=== PATIENT | male | born 1950 | race Caucasian/White ===

== ENCOUNTER 2020-01-26 10:51 | Emergency (ER) | payer MEDICARE, SELFPAY ==
[2020-01-26 10:51] VITALS: BP 200/98; PULSE 55; RESP 18; TEMP 36.5; O2SAT 97; BMI 26.6
--- NOTE | 2020-01-26 10:57 | XR_ITS ---
WS: [id number] RIGHT WRIST: 3 VIEW(S) TECHNIQUE: PA, oblique and lateral. HISTORY: fall COMPARISON: None available. Acute comminuted fracture involving the radial metaphysis. Multiple comminuted fragments with displac ement and overlapping. Distal radial fracture is posterior with respect to the proximal fragment by n early the width of the bone. Overlapping fragments by approximately 10 mm. The ulna is intact. No joint space abnormality. Extensive soft tissue edema surrounding the radius. XR/XR wrist RT min 3V* [id number] IMPRESSION: 1. Comminuted displaced fracture involving the radial metaphysis. Fracture is displaced posteriorly the width of the radius with overlapping by 10 mm. 2. Ulna is intact.
--- NOTE | 2020-01-26 10:57 | CT_ITS ---
WS: [id number] CT HEAD NONCONTRAST HISTORY: trauma TECHNIQUE: Contiguous axial imaging performed through the brain in 2.5 mm imaging. Bone and soft tiss ue windows. Sagittal and coronal reformats reviewed. All CT scans at [facility] use at le ast one of these dose optimization techniques: automated exposure control; mA and/or kV adjustment pe r patient size (includes targeted exams where dose is matched to clinical indication); or iterative r econstruction. DLP: 821.64 mGy.cm COMPARISON: 03/29/2018 No acute intracranial hemorrhage, midline shift or mass effect. Mild atrophy and mild chronic ischemic change. Prior lacunar infarct LEFT thalamus and posterior limb of the LEFT internal capsule. Additional small infarct in the anterior limb of the RIGHT internal ca psule. Ventricles: Normal size with no hydrocephalus. Paranasal sinuses: As visualized are clear. Mastoid air cells: Well pneumatized. Calvarium and scalp: Zygomatic arches are intact. Acute minimally displaced fractures involving the n fany bones bilaterally. Nondisplaced fracture through the nasal spine may be present. This will be ev aluated on the follow-up facial bone CT. CT/CT head wo con* [id number] IMPRESSION: 1. No acute intracranial hemorrhage or edema. 2. Cerebral atrophy and chronic ischemic changes and lacunar infarcts as above are stable. 3. Bilateral nasal bone fractures and possible nasal spine fracture. Please se e facial bone CT report to follow.
--- NOTE | 2020-01-26 10:57 | XR_ITS ---
WS: [id number] LEFT HAND: 3 VIEW(S) TECHNIQUE: PA, oblique and lateral. HISTORY: fall COMPARISON: None available. No acute fracture or dislocation. No soft tissue or bone abnormality. XR/XR hand LT min 3V* [id number] IMPRESSION: Normal LEFT hand.
--- NOTE | 2020-01-26 10:57 | CT_ITS ---
WS: [id number] CT CERVICAL SPINE HISTORY: fall 10 ft TECHNIQUE: Contiguous 2.5 mm axial imaging performed through the entire cervical spine. Sagittal and coronal reformats also performed. All CT scans at [facility] use at least one of these do se optimization techniques: automated exposure control; mA and/or kV adjustment per patient size (inc ludes targeted exams where dose is matched to clinical indication); or iterative reconstruction. DLP: 782.27 mGy.cm COMPARISON: None available. Straightening and slight reversal normal cervical lordosis. Craniocervical junction is normal. Modera te degenerative disc space narrowing at C5-6 and C6-7. Facet joints are normally aligned. Lateral mas ses of C1 and C2 are aligned. C2-C3: Central disc protrusion. C3-C4: Osteophytic ridging and shallow central disc protrusion and annular bulge. Mild central and bi lateral foraminal stenosis. C4-C5: Diffuse annular disc bulging with facet disease. Moderate bilateral foraminal stenosis and mil d central stenosis. C5-C6: Moderate annular disc bulging with osteophyte encroachment upon the ventral thecal sac. Severe bilateral foraminal stenosis. C6-C7: Diffuse osteophytic ridging with osteophyte encroachment upon the thecal sac. Severe RIGHT and mild LEFT foraminal narrowing. C7-T1: Diffuse osteophytic ridging with moderate to severe bilateral foraminal stenosis. Lung apices are clear. There is a small amount of air along the posterior surface of the LEFT clavicl e of uncertain etiology. May be related to IV placement. Moderate atherosclerosis extracranial caroti d arteries. CT/CT cervical spin wo con* [id number] IMPRESSION: 1. No cervical spine fracture. 2. Multilevel central and bilateral foraminal stenosis as above.
--- NOTE | 2020-01-26 10:58 | ED_ITS ---
HPI - Fall General: Chief Complaint: Fall Stated Complaint: FALL Time Seen by Provider: 01/26/20 10:57 Source: patient Mode of arrival: EMS Limitations: no limitations History of Present Illness: HPI Narrative: Patient is a very nice 69-year-old gentleman who presents to ED today following a fall from a 10 foot ladder. Patient and EMS report states that he was on the ladder when the ladder slipped out from underneath him causing him to fall. He complains mainly of right wrist pain. He states he might have struck in his head but denies LOC or neck pain. He is also complaining of some left thumb pain. Patient is alert and oriented x3 upon arrival. MD complaint: fall Onset (ago): minute(s) Fall from: from height (distance) (ladder-10 feet) Fall witnessed: yes, by bystander Place fall occurred: work Loss of consciousness: None Prolonged down time: no Symptoms prior to fall: none Context: tripped/slipped Associated symptoms-after fall: Denies abdominal pain, chest pain, headache(s), lightheadedness or neck pain Review of Systems Eyes: Denies: change in vision, blurry vision, photophobia, floaters or seeing flashes Card: Denies: chest pain, palpitations, irregular heart rhythm, edema, lightheadedness, syncope or pre-syncope Resp: Denies: shortness of breath, coughing up blood or chest congestion GI: Denies: abdominal pain Musc: Reports: joint pain (R wrist) and joint swelling (R wrist); Denies: neck pain or back pain Neuro: Denies: headache, numbness in extremities, weakness in extremities or changes in sensation [facility] ED PFSH: Social History Smoking and tobacco status: current every day smoker Physical Exam Const: COMMON NORMALS: no apparent distress, average body habitus, oriented x3, no limitations, healthy appearing, alert and well nourished ORIENTATION/CONSCIOUSNESS: Yes oriented to person, Yes oriented to place and Yes oriented to time HENMT: COMMON NORMALS: normocephalic, external ears normal, EAC's normal, TM's normal bilaterally, moist oral mucous membranes and oropharynx normal HEAD & SCALP: normal to inspection and normocephalic NOSE: other (small laceration to bridge of nose; no epistaxis; no septal hematoma) EXTERNAL EAR: Yes external ears normal EXTERNAL AUDITORY CANAL: EAC's normal TYMPANIC MEMBRANE: TM's normal bilaterally MOUTH: other (no intraoral injury ) THROAT: posterior oropharynx normal, tonsils normal and uvula midline Eye: COMMON NORMALS: PERRL, EOMs intact bilaterally and conjunctivae normal CONJUNCTIVA: Yes conjunctivae normal PUPIL: Yes PERRL Neck/C-Spine: OTHER: c-collar placed immediately during exam Chest: COMMONS NORMALS: inspection of chest normal and palpation of chest normal Resp: COMMON NORMALS: normal respiratory effort and clear to auscultation bilaterally AUSCULTATION: clear to auscultation bilaterally Cardio: COMMON NORMALS: regular rhythm RATE: bradycardic (mild-states this is normal for him) RHYTHM: regular rhythm GI: COMMON NORMALS: normal to inspection, nondistended, normoactive bowel sounds, soft to palpation, non-tender, no hepatosplenomegaly and no masses PALPATION: Yes soft and Yes no hepatosplenomegaly Back/Pelvis: COMMON NORMALS: thoracic and lumbar spine normal to inspection, no thoracic nor lumbar tenderness, thoraco-lumbar ROM normal and straight leg raise negative bilaterally Extremity: GENERAL: Yes normal exam except as noted OTHER: TTP and obvious deformity to R wrist; radial pulse intact; cap refill brisk Neuro: ANNY COMA SCALE: document GCS findings [place] coma scale eye opening: Spontaneous Anny coma scale verbal response: Orientated Anny coma scale motor response: Obey commands [place] coma scale total score: 15 COMMON NORMALS: oriented x3, CN's II-XII intact bilaterally, moves all extremities, no focal motor deficits and no sensory deficits noted SENSORIUM/ORIENTATION: Yes alert, Yes oriented to person, Yes oriented to place and Yes oriented to time Skin: NARRATIVE SKIN EXAM: small abrasion to forehead; small 0.5cm laceration to bridge of nose Procedures Laceration Laceration 1: Site: face (nose) Size (cm): 0.5 Description: linear Depth: simple, single layer Pre-repair: wound explored and irrigated extensively Skin layer closed with: nylon Size (cm): 5-0 Number of sutures: 2 Technique: simple, interrupted Course Consultations: Consultation #1: Dr. Giraldo-reviewed patient's wrist x-ray films and would like patient splinted and immediately sent to the orthopedic office so she can assess and hopefully schedule surgery for tomorrow (has to meet with committee tonight so they can approve urgent surgery). 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 Vital Signs: Vital signs: Vital Signs Temperature 97.7 F 01/26/20 10:51 Pulse Rate 44 L 01/26/20 12:37 Respiratory Rate 19 H 01/26/20 12:37 Blood Pressure 212/90 01/26/20 12:37 Pulse Oximetry 98 01/26/20 12:37 MDM - Fall MDM Narrative: Medical decision making narrative: Patient splinted and he will immediately see Dr. Giraldo. He will follow-up later with Dr. Hill for his nasal bone fractures. Imaging Data^: CT Head: Radiologist's impression: [address] [address] [address] Scan Report Signed Patient: Kelvin Pressley Unit #: [id number] : 1950 Age/Sex: 69 / M ADM Date: 01/26/20 Loc: ER Room/Bed: Attending Dr: Ordering Provider/Ordering MD: Madhavi Mcfarlane Date of Service: 01/26/20 Procedure(s): CT head wo con* [id number] Accession Number(s): [id number] Report Number: [id number] WS: [id number] CT HEAD NONCONTRAST HISTORY: trauma TECHNIQUE: Contiguous axial imaging performed through the brain in 2.5 mm imaging. Bone and soft tissue windows. Sagittal and coronal reformats reviewed. All CT scans at [facility] use at least one of these dose optimization techniques: automated exposure control; mA and/or kV adjustment per patient size (includes targeted exams where dose is matched to clinical indication); or iterative reconstruction. DLP: 821.64 mGy.cm COMPARISON: 03/29/2018 No acute intracranial hemorrhage, midline shift or mass effect. Mild atrophy and mild chronic ischemic change. Prior lacunar infarct LEFT thalamus and posterior limb of the LEFT internal capsule. Additional small infarct in the anterior limb of the RIGHT int ernal capsule. Ventricles: Normal size with no hydrocephalus. Paranasal sinuses: As visualized are clear. Mastoid air cells: Well pneumatized. Calvarium and scalp: Zygomatic arches are intact. Acute minimally displaced fractures involving the nasal bones bilaterally. Nondisplaced fracture through the nasal spine may be present. This will be evaluated on the follow-up facial bone CT. CT/CT head wo con* [id number] IMPRESSION: 1. No acute intracranial hemorrhage or edema. 2. Cerebral atrophy and chronic ischemic changes and lacunar infarcts as above are stable. 3. Bilateral nasal bone fractures and possible nasal spine fracture. Please see facial bone CT report to follow. Dictated By: Bernie Lopez DO Signed By: Bernie Lopez DO Signed Date/Time: 01/26/20 1138 DD/ 1133 CT cervical : Radiologist's impression: [facility] [address] [place] [address] CT Scan Report Signed Patient: Kelvin Pressley Unit #: [id number] : 1950 Age/Sex: 69 / M ADM Date: 01/26/20 Loc: ER Room/Bed: Attending Dr: Ordering Provider/Ordering MD: Madhavi Mcfarlane Date of Service: 01/26/20 Procedure(s): CT cervical spin wo con* [id number] Accession Number(s): [id number] Report Number: [id number] WS: [id number] CT CERVICAL SPINE HISTORY: fall 10 ft TECHNIQUE: Contiguous 2.5 mm axial imaging performed through the entire cervical spine. Sagittal and coronal reformats also performed. All CT scans at [facility] use at least one of these dose optimization techniques: automated exposure control; mA and/or kV adjustment per patient size (includes targeted exams where dose is matched to clinical indication); or iterative reconstruction. DLP: 782.27 mGy.cm COMPARISON: None available. Straightening and slight reversal normal cervical lordosis. Craniocervical junction is normal. Moderate degenerative disc space narrowing at C5-6 and C6-7. Facet joints are normally aligned. Lateral masses of C1 and C2 are aligned. C2-C3: Central disc protrusion. C3-C4: Osteophytic ridging and shallow central disc protrusion and annular bulge. Mild central and bilateral foraminal stenosis. C4-C5: Diffuse annular disc bulging with facet disease. Moderate bilateral foraminal stenosis and mild central stenosis. C5-C6: Moderate annular disc bulging with osteophyte encroachment upon the ventral thecal sac. Severe bilateral foraminal stenosis. C6-C7: Diffuse osteophytic ridging with osteophyte encroachment upon the thecal sac. Severe RIGHT and mild LEFT foraminal narrowing. C7-T1: Diffuse osteophytic ridging with moderate to severe bilateral foraminal stenosis. Lung apices are clear. There is a small amount of air along the posterior surface of the LEFT clavicle of uncertain etiology. May be related to IV placement. Moderate atherosclerosis extrac ranial carotid arteries. CT/CT cervical spin wo con* [id number] IMPRESSION: 1. No cervical spine fracture. 2. Multilevel central and bilateral foraminal stenosis as above. Dictated By: Bernie Lopez DO Signed By: Bernie Lopez DO Signed Date/Time: 01/26/20 1152 DD/ 1138 CT facial: Radiologist's impression: [place] [address] CT Scan Report Signed Patient: Kelvin Pressley Unit #: [id number] : 1950 Age/Sex: 69 / M ADM Date: 01/26/20 Loc: ER Room/Bed: Attending Dr: Ordering Provider/Ordering MD: Madhavi Mcfarlane Date of Service: 01/26/20 Procedure(s): CT facial bones wo con* 25015 Accession Number(s): [id number] Report Number: [id number] WS: [id number] CT FACIAL BONES HISTORY: trauma TECHNIQUE: Images obtained from the supraorbital location through the mandible. Soft tissue and bone windows are reviewed. Coronal and sagittal reformats have also been submitted. DLP: 752.[address] scans at [facility] use at least one of these dose optimization techniques: automated exposure control; mA and/or kV adjustment per patient size (includes targeted exams where dose is matched to clinical indication); or iterative reconstruction. COMPARISON: None available. Acute LEFT lateral displacement of comminuted nasal bone fractures. Nasal spine is intact. Zygomatic arches are normal. No air-fluid levels within the sinus cavities. Floors and roofs of the orbits are normal. Mild deviation of the nasal septum with bony spurring to the RIGHT. CT/CT facial bones wo con* [id number] IMPRESSION: Bilateral nasal bone fractures with mild displacement to the LEFT. No additional fractures. Dictated By: Bernie Lopez DO Signed By: Bernie Lopez DO Signed Date/Time: 01/26/20 1200 DD/ 1155 L hand XR: Radiologist's impression: [address] [address] XRay Report Signed Patient: Kelvin Pressley Unit #: [id number] : 1950 Age/Sex: 69 / M ADM Date: 01/26/20 Loc: ER Room/Bed: Attending Dr: Ordering Provider/Ordering MD: Madhavi Mcfarlane Date of Service: 01/26/20 Procedure(s): XR hand LT min 3V* 99489 Accession Number(s): [id number] Report Number: [id number] WS: [id number] LEFT HAND: 3 VIEW(S) TECHNIQUE: PA, oblique and lateral. HISTORY: fall COMPARISON: None available. No acute fracture or dislocation. No soft tissue or bone abnormality. XR/XR hand LT min 3V* [id number] IMPRESSION: Normal LEFT hand. Dictated By: Bernie Lopez DO Signed By: Bernie Lopez DO Signed Date/Time: 01/26/20 1202 DD/ 1201 Discharge Plan Discharge Patient Disposition: Home, Self-Care Clinical Impression: Displaced fracture of distal end of radius Fall from ladder Qualifiers: Encounter type: initial encounter Qualified Code(s): W11.XXXA - Fall on and from ladder, initial encounter Fracture closed, nasal bone Qualifiers: Encounter type: initial encounter Qualified Code(s): S02.2XXA - Fracture of nasal bones, initial encounter for closed fracture Condition: Stable Prescriptions: New Augmentin 875-125 mg tablet 1 tab PO Q12H Qty: 14 RF: 0 hydrocodone-acetaminophen 7.5-325 mg tablet 1 tab PO Q4H PRN (Reason: pain) Qty: 20 RF: 0 No Action fluoxetine 40 mg Capsule 40 mg PO QAM RF: 0 sildenafil 100 mg Tablet 100 mg PO DAILY PRN (Reason: Sexual Activity) RF: 0 lisinopril 40 mg Tablet 40 mg PO DAILY RF: 0 aripiprazole 10 mg Tablet 10 mg PO DAILY RF: 0 Discharge Orders: Discharge Order (Routine); Ordered 01/26/20 Ordered By: Madhavi Mcfarlane Referrals: Gerard Hill MD [Physician] - Gloria Reid MD [Primary Care Provider] - Activity Restrictions/Additional Instructions: Go straight to [facility] orthopedics where you will meet with Dr. Giraldo. She will go over surgical options for your wrist fracture. I have already spoken to your who will meet you there. Please follow the referral information and contact Dr. Hill so that he may see you for your nasal fracture. Discharge Date/Time: 01/26/20 12:37 Coding Level of Care Code ED Derrick Worker Well Service for Chg Fwd Exam Comprehensive
[2020-01-26 11:03] VITALS: O2SAT 97
--- NOTE | 2020-01-26 11:24 | PC.NURSE ---
pt back from CT by inna
[2020-01-26 11:36] VITALS: RESP 16
[2020-01-26] MEDS: morphine 4 mg/mL SDV 1 mL IVP (11:36)
[2020-01-26] MEDS: tetanus-diphtheria tox (adult) 0.5 mL SDV IM (11:37)
--- NOTE | 2020-01-26 11:38 | PC.NURSE ---
portable xray at bedside
[2020-01-26 12:16] VITALS: PULSE 47; RESP 18; O2SAT 100
[2020-01-26 12:37] VITALS: BP 212/90; PULSE 44; RESP 19; O2SAT 98
--- NOTE | 2020-01-27 10:44 | DCPLANNER ---
risk management manager had message to schedule a follow up appointment for patient with Dr. Hill. risk management manager called the office of Dr. Hill, spoke with Iveth, gave clinic patients information. risk management manager was told that patients information would be printed and reviewed. Clinic will call case resource manager and patient with appointment information.
--- NOTE | 2020-02-28 14:27 | DCPLANNER ---
Patients appointment with Dr. Hill has been cancelled.
== END 2020-01-26 12:37 | disposition home or self-care (01) ==
LOC: ER 12:42
PROVIDERS: Emergency Provider Physician Assistant; PCP Family Medicine
DX: S01.21XA Laceration without foreign body of nose, initial encounter (principal); S02.2XXA Fracture of nasal bones, initial encounter for closed fracture; S52.501A Unspecified fracture of the lower end of right radius, initial encounter for closed fracture; S00.81XA Abrasion of other part of head, initial encounter; F17.200 Nicotine dependence, unspecified, uncomplicated; W11.XXXA Fall on and from ladder, initial encounter
CPT/HCPCS: 12011; 12345; 29125; 70450; 70486; 72125; 73110; 73130; 90471; 90714; 96374; 96375; 99283; 99284; J2270

== ENCOUNTER 2020-01-27 07:28 | Day surgery (SDC) | payer MEDICARE, SELFPAY ==
[2020-01-27] VITALS (13 sets, daily range): BP systolic 132–194; BP diastolic 63–107; PULSE 49–68; RESP 15–24; TEMP 36.2–36.9; O2SAT 93–99; BMI 25.1
--- NOTE | 2020-01-27 | XR_ITS ---
WS: [id number] C-ARM RADIOGRAPHS RIGHT WRIST; 4 IMAGES HISTORY: ORIF RIGHT WRIST COMPARISON: 01/26/2020 Intraoperative placement of a plate and screws stabilizing the distal radial fracture in good positio n and alignment. Fracture impaction and displacement has been reduced. XR/XR wrist RT min 3V* [id number] IMPRESSION: Intraoperative imaging during ORIF distal radial comminuted fracture now in goo d alignment.
--- NOTE | 2020-01-27 | SCC_ITS ---
Procedure Done: Open reduction internal fixation right comminuted displaced distal radius fracture 164.6 seconds of fluoroscopic guidance, for a cumulative dose of 5.15 mGy, was provided to Dr. Giraldo by the radiology department. C-arm images of the RIGHT wrist were saved for the patient's permanent record. [facility]ITAL[facility]ash[facility]
[2020-01-27] MEDS: CELEcoxib 200 mg Capsule 400 MG PO (08:01)
[2020-01-27 08:25] LABS: Basophils % 0.2 %; Eosinophils % 0.1 %; Hematocrit 41.3 % (42.0-52.0); Lymphocytes % 7.4 %; Mean Corpuscular HGB Conc 33.9 g/dL (30.0-36.0); Mean Corpuscular Hemoglobin 32.7 pg (28.0-34.0); Mean Corpuscular Volume 96.5 fL (80-94); Mean Platelet Volume 11.7 fL (7.4-10.4); Monocytes # 0.8 10^3/uL (0.2-0.9); Monocytes % 5.9 %; Neutrophils # 11.4 10^3/uL (1.8-7.7); Neutrophils % 86.1 %; Nucleated Red Blood Cells % 0 %; Platelet Count 208 10^3/cmm (130-400); Red Blood Count 4.28 10^6/uL (4.1-5.3); Red Cell Distribution Width 14.5 % (12.1-15.1); White Blood Count 13.2 10^3/uL (4.0-10.0)
[2020-01-27] MEDS: sodium chloride 0.9% 1,000 ML 30 ML IV (08:30)
--- NOTE | 2020-01-27 08:37 | P.ANESASSM_ITS ---
Pre-Anesthetic Assessment Pre-Anesthetic Assessment: Height/Weight: Height 1.75 m Weight 77.111 kg Preop Diagnosis: Right wrist fracture Proposed Procedure: Operation Date: 01/27/20 07:20 Proposed Procedures p ORIF Wrist 98691/S52.509A(Right) - Aletha Giraldo MD Familial anesthetic complications: PONV Was Beta Patricia taken within 24 hours: N/A Last intake: Intake NPO > 8 hrs Last Liquid Date 01/26/20 Last Liquid Time 16:00 Last Solid Date 01/26/20 Last Solid Time 16:00 Social: Social History: Tobacco Packs per day: 0.5 ppd Exam: Pre-Anes Outpt Exam: alert, oriented x 3, clear to auscultation bilaterally and regular rate & rhythm Airway: Submandibular: Other (suarez) Cervical ROM: WNL MP: 4 Additional comments: edentulouis Pulmonary: Pulmonary: None reported CV/HEM: CV/HEM: HTN : : None reported Hepatic: Hepatic: None reported GI: GI: None reported Metabolic: Metabolic: None reported Musc/skel: Comments: Nasal fractrures Neuropsych: Neuropsych: CVA (Difficulty with language (r arm and leg weak as well) - occured 8 yrs ago) Anesthetic Plan: ASA status: 3 Anesthesia: General and Regional (specify below) Risk of > 500 ml blood loss (7ml/kg in children): No PFSH Anesthesia PFSH: Medical History (Updated 01/26/20 @ 16:31 by Aletha Giraldo MD) Hypertension Social History Smoking and tobacco status: current every day smoker Alcohol intake: never Data Anesthesia CBC & Chem 7: 01/27/20 07:53 Other Labs: Laboratory Results - last 48 hr 01/27/20 07:53 WBC 13.2 H RBC 4.28 Hgb 14.0 Hct 41.3 L MCV 96.5 H MCH 32.7 MCHC 33.9 RDW 14.5 Plt Count 208 MPV 11.7 H Neut % (Auto) 86.1 Lymph % (Auto) 7.4 [place] % (Auto) 5.9 Eos % (Auto) 0.1 Baso % (Auto) 0.2 Neut # (Auto) 11.4 H Lymph # (Auto) 1.0 [place] # (Auto) 0.8 Eos # (Auto) 0.0 Baso # (Auto) 0.0 Nucleated RBC % (auto) 0 Nucleated RBCs # 0.0 Cardiac Studies: No Data to Display
[2020-01-27 08:38] LABS: Alanine Aminotransferase 14 U/L (0-41); Albumin Level 4.3 g/dL (3.5-5.2); Alkaline Phosphatase 77 IU/L (40-130); Anion Gap 17.6 (5-19); Aspartate Amino Transferase 16 U/L (0-40); Blood Urea Nitrogen 10 mg/dL (8-23); Calcium 9.9 mg/dL (8.5-10.5); Carbon Dioxide 25 mmol/L (22-29); Chloride 100 mmol/L (98-107); Globulin 3.2 g/dL (1.3-4.6); Glomerular Filtration Rate 74.1 mL/min (90-130); Glucose 136 mg/dL (65-115); Osmolality Calculated 286 mOsm/kg (285-295); Potassium 3.6 mmol/L (3.5-5.1); Sodium 139 mmol/L (136-145); Total Bilirubin 0.6 mg/dL (0.15-1.2); Total Protein 7.5 g/dL (6.6-8.7)
--- NOTE | 2020-01-27 08:42 | ANES.PROC ---
Anesthesia Procedures Procedure/Date: 01/27/20 Nerve Block ^: Nerve Block 1: Main Anesthesia: general anesthesia Time Out Performed: Yes Consent: requested by attending/covering physician, from patient, from other (), risks and benefits reviewed and patient agrees to proceed Nerve block location: supraclavicular (R) Anesthesia monitors applied: pulse oximetry, EKG, BP cuff and oxygen Nerve block position: semi sitting Anesthetic Used: ropivicaine 0.5% and with decadron (4 mg) Amount of anesthesia used (mL): 30 Ultrasound used to: recognize landmarks, visualize and ID brachial plexus and in supraclavicular region Nerve Stimulator Used?: No Interscalene/Femoral BLK: 4 stimuplex 21 g needle used for position and inplane approach, visualize local anesthetic spread and no vascular puncture identified Injection: neg aspiration of heme Patient Tolerated Procedure: well and no complications Complications: none
[2020-01-27] MEDS: hyDRALAzine 20 mg/mL INJ 1 mL 5 MG IVP ×2 (09:09→09:55)
[2020-01-27] MEDS: vancomycin 1,000 MG in sodium chloride 0.9% 250 ML 166 MG IV (09:15)
--- NOTE | 2020-01-27 10:03 | P.HPUD_ITS ---
Surgery/Procedure H&P Update DATE OF PROCEDURE: January 27, 2020 DATE H&P PERFORMED: 01/26/20 H&P UPDATE INFORMATION: I have examined patient prior to procedure, No changes to prior documentation and H&P is in [facility] EMR on date indicated PREOP DIAGNOSIS: Right wrist fracture PLANNED PROCEDURE: Operation Date: 01/27/20 07:20 Proposed Procedures p ORIF Wrist [id number]/S52.509A(Right) - Aletha Giraldo MD
[2020-01-27] MEDS: scopolamine 1.5 Patch 1 PATCH TRANSDERMA (10:21)
[2020-01-27] MEDS: ceFAZolin 1,000 mg SDV 1000 MG IRRIGATION (11:21)
--- NOTE | 2020-01-27 12:42 | SUR.PHASEI ---
1239 PATIENT TO PACU AT THIS TIME. RR EVEN AND UNLABORED. ORAL AIRWAY IN PLACE. PLACED ON SIMPLE MASK AT 8L, SPO2 99%. PATIENT NOTED TO BE RESTING WITH EYES CLOSED, UNRESPONSIVE TO VERBAL STIMULI, PROTECTING AIRWAY. DRESSING INTACT TO RIGHT WRIST, CAP REFILL INTACT.
--- NOTE | 2020-01-27 12:58 | SUR.PHASEI ---
1257 ORAL AIRWAY REMOVED. SPO2 99% ON SIMPLE MASK AT 8L.
--- NOTE | 2020-01-27 13:21 | PM.OP ---
Operative Report Date of procedure: January 27, 2020 Pre-op Diagnosis: Right comminuted 100% displaced distal radius fracture Post-op diagnosis: same Procedure Done: Open reduction internal fixation right comminuted displaced distal radius fracture utilizing the [place] distal radius plate, volar, standard long with a combination of locking and nonlocking screws Pathology: none sent Surgeon: Aletha Giraldo Predatory Animal Trapper: [facility] OR technicians Anesthesia: General (Intubated) Estimated blood loss (mL): 10 Tourniquet time (min): 99 IV fluids (mL): 600 Urine output: 0 mL, no Adorno Complications: None Findings: Significant comminution and 100% displacement of the distal radius fracture which was very unstable following reduction. Condition: stable Disposition: same day (To PACU then to home) Brief History: This 69-year-old gentleman presented to my office after falling approximately 10 feet from a ladder. He had a 100% displaced comminuted distal radius fracture. Fracture was felt to be very unstable, and therefore, he was scheduled for urgent intervention. At the time of evaluation, he was found to be neurologically intact aside from his deficits secondary to a stroke which involve primarily the right side. He does note normal sensation to evaluation however. Procedure: Patient was brought to the operating theater, and after undergoing adequate general anesthesia per endotracheal tube, with subsequent placement in the recovery room of a supraclavicular block, the patient's right upper extremity was prepped and draped in usual fashion utilizing DuraPrep. The patient had a tourniquet placed high on the arm prior to prepping and draping. Following prepping and draping, the arm was exsanguinated and the tourniquet was elevated. Total tourniquet time was 99 minutes at 250 mmHg. Prior to commencement of the surgical procedure, a surgical pause was performed. At the time of the surgical pause, we confirmed the site and side of surgery as well as the patient's identity and preoperative surgical markings. We also confirmed availability of equipment and appropriate preoperative IV antibiotics which was vancomycin 1 g. Fluoroscopy was also brought into position so that we could visualize the fracture and hardware throughout the surgical procedure. The fracture was evaluated prior to tourniquet placement. Following elevation of the tourniquet as well as the surgical pause, an incision was made along the palmaris longus and continued down onto the volar surface of the radius. Care was taken to avoid injury throughout the surgical procedure to the median nerve as well as to the radial artery. The flexor carpi radialis was retracted medially. We were able to essentially elevate the sheath of the flexor carpi radialis and then I was able to place my finger directly onto the distal radius. For the most part, the patient did his own dissection at the time of his injury, but due to the comminution, a long plate needed to be used and this did require further dissection up into the forearm. Soft tissues were elevated off the distal radius to allow access to the fracture and also to the volar aspect of the distal radial shaft. Fluoroscopy was used to determine whether or not the reduction was appropriate. We were able to reduce the fracture with some difficulty due to the significant comminution and osteopenia. We then evaluated the plate and chose the [employer] standard long volar plate for the right distal radius. The plate was attached proximally and distally utilizing a combination of locking and nonlocking screws. We had excellent fixation and reduction of the fracture. Fluoroscopy was utilized during the procedure. Once the plate was fully attached, we had a near anatomic position to the distal radius and the distal radius was out to length. Being satisfied with position, the area was copiously irrigated. There were no fascial tissues to close, and therefore we closed the subcutaneous tissues with 2-0 interrupted Monocryl. We then placed a subcuticular 3-0 Monocryl suture which was running. This was followed by Exofin, Steri-Strips, Telfa and Tegaderm. A volar splint was wrapped into position over soft roll and this was wrapped in place with an Wicho wrap. The tourniquet was released after 99 minutes. There were no complications. There were no specimens. Patient was returned to recovery room in a satisfactory condition. He was subsequently discharged home with family. He will follow-up with me as scheduled in her discharge instructions.
--- NOTE | 2020-01-27 13:21 | SUR.PHASEI ---
1311 TIME OUT: NERVE BLOCK RIGHT SHOULDER WITH DR. MARQUEZ. PROCEDURE COMPLETE AT 1320. PATIENT TOLERATED WELL.
--- NOTE | 2020-01-27 13:34 | SUR.PHASEI ---
1331 PATIENT TO OPS AT THIS TIME. DRESSING INTACT TO RIGHT WRIST WITH SLING AND ICE IN PLACE. CAP REFILL INTACT. PATIENT DENIES PAIN.
== END 2020-01-27 14:50 | disposition home or self-care (01) ==
PROVIDERS: PCP Nurse Practitioner Family; Visit Provider Specialist
PROC: (CPT 25609; principal; 2020-01-27 07:00)
DX: S52.501A Unspecified fracture of the lower end of right radius, initial encounter for closed fracture (principal); W11.XXXA Fall on and from ladder, initial encounter; F17.210 Nicotine dependence, cigarettes, uncomplicated; I10 Essential (primary) hypertension; I69.30 Unspecified sequelae of cerebral infarction
CPT/HCPCS: 25609; 12345; 36415; 73110; 76000; 80053; 85025; 96365; 96374; 96375; C1713; J0131; J0330; J0360; J0690; J1100; J2001; J2405; J2704; J2795; J3010; J3370; J3490; J7030; J7050

== ENCOUNTER → 2020-02-09 09:49 | Outpatient (BNVA) | payer MEDICARE, SELFPAY | PROVIDERS: PCP Nurse Practitioner Family; Visit Provider Specialist | DX: Z48.89 Encounter for other specified surgical aftercare (principal); S52.501A Unspecified fracture of the lower end of right radius, initial encounter for closed fracture; X58.XXXA Exposure to other specified factors, initial encounter | CPT/HCPCS: 73110; L3982 ==

== ENCOUNTER 2020-02-09 11:42 | Outpatient (CLI) | payer MEDICARE, SELFPAY | END 2020-02-09 11:43 | disposition home or self-care (01) | LOC: SPT 11:43 | PROVIDERS: PCP Nurse Practitioner Family; Visit Provider Specialist | DX: Z46.89 Encounter for fitting and adjustment of other specified devices (principal); S52.591D Other fractures of lower end of right radius, subsequent encounter for closed fracture with routine healing; X58.XXXD Exposure to other specified factors, subsequent encounter | CPT/HCPCS: L3982 ==

== ENCOUNTER → 2020-02-22 09:47 | Outpatient (BNVA) | payer MEDICARE, SELFPAY | PROVIDERS: PCP Nurse Practitioner Family; Visit Provider Specialist | DX: Z48.89 Encounter for other specified surgical aftercare (principal); S52.501A Unspecified fracture of the lower end of right radius, initial encounter for closed fracture; X58.XXXA Exposure to other specified factors, initial encounter | CPT/HCPCS: 73110 ==

== ENCOUNTER → 2020-03-19 09:04 | Outpatient (BNVA) | payer MEDICARE, SELFPAY | PROVIDERS: PCP Nurse Practitioner Family; Visit Provider Specialist | DX: Z48.89 Encounter for other specified surgical aftercare (principal); Z98.890 Other specified postprocedural states; S52.501A Unspecified fracture of the lower end of right radius, initial encounter for closed fracture; X58.XXXA Exposure to other specified factors, initial encounter | CPT/HCPCS: 73110 ==

== ENCOUNTER 2020-05-18 12:49 | Inpatient (IN) | payer MEDICARE, SELFPAY ==
[2020-05-18] VITALS (9 sets, daily range): BP systolic 145–215; BP diastolic 89–116; PULSE 42–51; RESP 12–21; TEMP 36.6–36.9; O2SAT 98–100; BMI 24.3
--- NOTE | 2020-05-18 12:58 | XR_ITS ---
WS: [id number] Portable AP upright chest, 05/18/2020 Clinical Data: stroke Comparison: Portable chest, 05/12/2019. Findings: No nodules, masses or effusions are seen. The heart is normal. The pulmonary vascularity is not increased. No pneumonia or pneumothorax is seen. The aortic arch and descending aorta show tortu osity. XR/XR chest 1V portable [id number] Impression: Atherosclerosis.
--- NOTE | 2020-05-18 12:58 | CTR_ITS ---
PROCEDURE INFORMATION: Exam: CT Angiography Head With Contrast Exam date and time: 05/18/2020 1:29 PM Age: 69 years old Clinical indication: Weakness; Additional info: CVA, hemiplegia TECHNIQUE: Imaging protocol: Computed tomography angiography of the head with intravenous contrast. 3D rendering: MIP and/or 3D reconstructed images were created by the technologist. Radiation optimization: All CT scans at this facility use at least one of these dose optimization techniques: automated exposure control; mA and/or kV adjustment per patient size (includes targeted exams where dose is matched to clinical indication); or iterative reconstruction. Contrast material: VISI; Contrast volume: 95 ml; Contrast route: INTRAVENOUS (IV); COMPARISON: CT head wo con* [id number] 05/18/2020 12:43 PM RADIATION DOSE METRICS: Total DLP (mGy-cm): 2291.66 FINDINGS: Anterior cerebral arteries: No occlusion or significant stenosis. No aneurysm. Right internal carotid artery: Intracranial segment is patent with no significant stenosis or occlusion. No aneurysm. Right middle cerebral artery: No occlusion or significant stenosis. No aneurysm. Right posterior cerebral artery: There is a origin of the right posterior cerebral artery. Right vertebral artery: No occlusion or significant stenosis. No aneurysm. Left internal carotid artery: Intracranial segment is patent with no significant stenosis or occlusion. No aneurysm. Left middle cerebral artery: No occlusion or significant stenosis. No aneurysm. Left posterior cerebral artery: There is a origin of the left posterior cerebral artery. Left vertebral artery: No occlusion or significant stenosis. No aneurysm. Basilar artery: The basilar artery is diminutive, reflecting the presence of bilateral posterior cerebral arteries. IMPRESSION: No acute abnormality. PROCEDURE INFORMATION: Exam: CT Angiography Neck With Contrast Exam date and time: 05/18/2020 1:29 PM Age: 69 years old Clinical indication: Weakness; Additional info: CVA, hemiplegia TECHNIQUE: Imaging protocol: Computed tomography angiography of the neck with intravenous contrast. 3D rendering: MIP and/or 3D reconstructed images were created by the technologist. Radiation optimization: All CT scans at this facility use at least one of these dose optimization techniques: automated exposure control; mA and/or kV adjustment per patient size (includes targeted exams where dose is matched to clinical indication); or iterative reconstruction. Contrast material: VISI; Contrast volume: 95 ml; Contrast route: INTRAVENOUS (IV); COMPARISON: CT head wo con* [id number] 05/18/2020 12:43 PM RADIATION DOSE METRICS: Total DLP (mGy-cm): 2291.66 FINDINGS: Right common carotid artery: No stenosis. No dissection or occlusion. Right internal carotid artery: There are calcific and noncalcific atherosclerotic changes of the right carotid bulb. Right external carotid artery: No occlusion or stenosis of the origin. Right vertebral artery: No stenosis. No dissection or occlusion. Left common carotid artery: No stenosis. No dissection or occlusion. Left internal carotid artery: There are calcific and noncalcific atherosclerotic changes of the left carotid bulb. Patulous appearance of the bulb is suggestive of previous endarterectomy Left external carotid artery: No occlusion or stenosis of the origin. Left vertebral artery: No stenosis. No dissection or occlusion. Bones/joints: No acute fracture. Soft tissues: Normal. No significant soft tissue swelling. CT/CT angio headneck* [id number] IMPRESSION: No significant cervical arterial stenosis. REFERENCES: NASCET CRITERIA. The degree of internal carotid artery stenosis is based on NASCET criteria. Normal is no stenosis. Mild is less than 50% stenosis. Moderate is 50-69% stenosis. Severe is 70% to 99% stenosis. Total occlusion is no detectable patent lumen. Radiation Dose CTDIVOL = (mGy): DLP = 2291.66~2291.66 (mGy-cm)
--- NOTE | 2020-05-18 12:58 | ECG_ITS ---
[facility] Test Date: 2020-05-18 Pat Name: Kelvin Pressley Department: Room: Gender: Male Training Director: : 1950 Requested By: Love Jimenez Order Number: [id number] Hector MD: Cassidy Warren M.D. Measurements Intervals [place] Rate: 47 P: 12 MI: 152 QRS: 29 QRSD: 89 T: 25 QT: 466 QTc: 413 Interpretive Statements Multifocal atrial rhythm Nonspecific ST changes Compared to ECG 05/12/2019 11:29:41 There may not be a significant change Electronically Signed On 05-18-2020 23:35:41 CDT by Cassidy Warren M.D. [email or web address] LimitedViralNinjaspremier health miami valley hospital northAuris Surgical [employer]otics/store/NU/[id number] f
--- NOTE | 2020-05-18 12:58 | CTR_ITS ---
PROCEDURE INFORMATION: Exam: CT Head Without Contrast Exam date and time: 05/18/2020 1:01 PM Age: 69 years old Clinical indication: Other: TIA; Additional info: Symptoms of acute stroke TECHNIQUE: Imaging protocol: Computed tomography of the head without contrast. Radiation optimization: All CT scans at this facility use at least one of these dose optimization techniques: automated exposure control; mA and/or kV adjustment per patient size (includes targeted exams where dose is matched to clinical indication); or iterative reconstruction. Other technique: STROKE PROTOCOL was implemented. COMPARISON: CT head wo con* [id number] 01/26/2020 11:12 AM RADIATION DOSE METRICS: Total DLP (mGy-cm): 764.41 FINDINGS: Brain: There is no acute intracranial hemorrhage or mass effect. Mild diffuse volume loss is within the range of normal for patient age. There are small vessel ischemic changes within the periventricular and subcortical white matter, but the normal wood/white matter delineation is maintained. Ventricles: Normal. No ventriculomegaly. Bones/joints: Unremarkable. No acute fracture. Sinuses: Visualized sinuses are unremarkable. No fluid levels. Mastoid air cells: Visualized mastoid air cells are well aerated. Soft tissues: Unremarkable. CT/CT head wo con* [id number] IMPRESSION: No acute hemorrhage or edema. ASSESSMENT: ASPECTS (Brady Stroke Program Early CT Score) is 10. Radiation Dose CTDIVOL = (mGy): DLP = 764.41 (mGy-cm)
--- NOTE | 2020-05-18 13:01 | ED_ITS ---
HPI - Neuro Symptoms/Deficit General: Chief Complaint: Neuro Symptoms/Deficit Stated Complaint: POSS STROKE Time Seen by Provider: 05/18/20 12:50 History of Present Illness: HPI Narrative: This patient is a 69-year-old male presenting today as a stroke alert. He was brought in by ambulance and the stroke alert was called prior to arrival. He was taken straight to CT where I saw him initially. He has a history of a prior stroke which caused him speech deficits. He started having some dizziness and tingling on the right side on Thursday which has been persistent. This morning he estimates that about 9:00 he started having complete weakness of the right side and slurred speech. He said his right side is completely useless now. He has medications for blood pressure, lisinopril, he does not take it regularly and has not taken it in several days at least. Blood pressure on arrival was 190/110. Associated symptoms: Deny chest pain, headache(s), malaise, nausea or vomiting Review of Systems General: Reports: 10 or more systems reviewed and unremarkable except in HPI and below Const: Denies: fever(s), chills, fatigue or malaise Eyes: Denies: change in vision ENMT: Denies: odynophagia Card: Denies: chest pain or swelling of feet/ankles Resp: Denies: dyspnea, productive cough or non-productive cough GI: Denies: abdominal pain, nausea or vomiting : Denies: flank pain Musc: Denies: neck pain or back pain Skin/Breast: Denies: rash Neuro: Reports: numbness in extremities, weakness in extremities and Slurred speech present; Denies: headache(s) Adam/Lymph: Denies: easy bruising or easy bleeding PFSH ED PFSH: Medical History BPH (benign prostatic hyperplasia) Depression Displaced fracture of distal end of radius History of CVA with residual deficit Hypertension Surgical History (Updated 05/18/20 @ 19:01 by Lilliana Peraza MD) H/O hand surgery -right hand History of surgery on right wrist Family History Grandfather Stroke Social History (Updated 05/18/20 @ 18:59 by Lilliana Peraza MD) Smoking and tobacco status: current every day smoker cigarettes Packs smoked per day: 1 Alcohol intake: never Substance/Drug Use: never Household members: spouse Marital status: NIH stroke score NIHSS: Level Of Consciousness - 1a: 0 Level Of Consciousness Questions - 1b: Both Correct Level Of Consciousness Commands - 1c: Both Correct Best Gaze - 2: Partial Gaze Palsy Visual Villegas - 3: No Visual Loss Facial Palsy - 4: Complete Paralysis Motor Arm Right - 5: No Effort Against [place] Motor Arm Left - 5: No Drift Motor Leg Right - 6: No Effort Against [place] Motor Leg Left - 6: No Drift Limb Ataxia - 7: Absent Sensory - 8: Severe To Total Loss Best Language - 9: Mild/Moderate Aphasia Dysarthia - 10: Mild/Moderate Dysarthia Physical Exam Const: COMMON NORMALS: patient oriented x3 GENERAL APPEARANCE: lethargic ORIENTATION/CONSCIOUSNESS: Yes lethargic HENMT: HEAD & SCALP: normal to inspection FACE & SINUS: normal facial exam Eye: GENERAL EYE: appearance normal, both eyes and all related structures Neck/C-Spine: COMMON NORMALS: supple, no meningeal signs and no JVD Chest: COMMONS NORMALS: normal inspection of the chest Resp: COMMON NORMALS: normal respiratory effort, No use of accessory muscles and clear to auscultation bilaterally AUSCULTATION: clear to auscultation bilaterally Cardio: COMMON NORMALS: no JVD, regular rate, regular rhythm and No murmurs present (Cardio) RATE: regular rate RHYTHM: regular rhythm GI: COMMON NORMALS: Normal to inspection, nondistended, normoactive bowel sounds present, Soft to palpation and non-tender INSPECTION: Yes normal to inspection AUSCULTATION: Yes normoactive bowel sounds PALPATION: Yes Soft to palpation Back/Pelvis: COMMON NORMALS: thoracic and lumbar spine normal to inspection Extremity: COMMON NORMALS: normal to inspection Neuro: COMMON NORMALS: patient oriented x3 SENSORIUM/ORIENTATION: Yes lethargic MENINGEAL SIGNS: Yes no meningeal signs OTHER: see NIH stroke scale Psych: COMMON NORMALS: mental status grossly normal, cooperative and normal affect Skin: COMMON NORMALS: no rashes or lesions noted and turgor normal GENERAL SKIN EXAM: no rashes or lesions noted and turgor normal Course ED course: CTA shows no large vessel occlusion - radiologist now thinks there is a small lacunar infarct on the initial CT. Likely acute given his symptoms. Discussed with Dr. Peraza - She will admit here unless the patient prefers transfer to a facility with in house neurology as we only have teleneurology this weekend. He wants to stay here. He is very despendent about his health problems currently. Consultations: Consultation #1: Dr. Castillo at [facility] Does not recommend TPA given that the patient has had symptoms since Thursday. Although his symptoms were not severe until today this still increases the risk of TPA and potential benefit may not outweigh the risk at this point. He might still be a candidate for intervention if he were found to have a large vessel occlusion so he will go back for CTA. Given that TPA is not in his future Dr. Castillo recommended against aggressively controlling the blood pressure with a target below 220/110. Time: 13:13 Vital Signs: Vital signs: Vital Signs Temperature 98.3 F 05/18/20 19:34 Pulse Rate 42 L 05/18/20 19:34 Respiratory Rate 12 05/18/20 19:34 Blood Pressure 202/99 05/18/20 19:34 Pulse Oximetry 100 05/18/20 19:34 MDM - Neuro Symptoms/Deficit Lab Data: Labs: Lab Results 05/18/20 05/18/20 05/18/20 Range/Units 12:56 13:07 13:07 WBC 4.8 (4.0-10.0) 10^3/ uL RBC 4.61 (4.1-5.3) 10^6/u L Hgb 14.8 (11.7-16.6) g/dL Hct 44.6 (42.0-52.0) % MCV 96.7 H (80-94) fL MCH 32.1 (28.0-34.0) pg MCHC 33.2 (30.0-36.0) g/dL RDW 13.2 (12.1-15.1) % Plt Count 209 (130-400) 10^3/c mm MPV 11.6 H (7.4-10.4) fL Neut % (Auto) 57.7 % Lymph % (Auto) 32.0 % Villalba % (Auto) 9.5 % Eos % (Auto) 0.2 % Baso % (Auto) 0.6 % Neut # (Auto) 2.74 (1.8-7.7) 10^3/u L Lymph # (Auto) 1.5 (0.8-4.8) 10^3/u L [place]ba # (Auto) 0.5 (0.2-0.9) 10^3/u L Eos # (Auto) 0.0 (0.0-0.8) 10^3/u L Baso # (Auto) 0.0 (0.0-0.1) 10^3/u L Nucleated RBC % (a uto) 0 % Nucleated RBCs # 0.0 /100WBC PT 13.70 H (10.5-13.3) SECO NDS INR 1.02 (0.8-1.2) APTT 31.2 (23.9-36.7) SECO NDS Sodium (136-145) mmol/L Potassium (3.5-5.1) mmol/L Chloride (98-107) mmol/L Carbon Dioxide (22-29) mmol/L Anion Gap (5-19) BUN (8-23) mg/dL Creatinine (0.7-1.2) mg/dL GFR Calculation (90-130) mL/min Glucose (65-115) mg/dL POC Glucose 102 (70-110) mg/dL Calculated Osmolal ity (285-295) mOsm/k g Calcium (8.5-10.5) mg/dL Total Bilirubin (0.15-1.2) mg/dL AST (0-40) U/L ALT (0-41) U/L Alkaline Phosphata se (40-130) IU/L Total Protein (6.6-8.7) g/dL Albumin (3.5-5.2) g/dL Globulin (1.3-4.6) g/dL 05/18/20 Range/Units 13:07 WBC (4.0-10.0) 10^3/ uL RBC (4.1-5.3) 10^6/u L Hgb (11.7-16.6) g/dL Hct (42.0-52.0) % MCV (80-94) fL MCH (28.0-34.0) pg MCHC (30.0-36.0) g/dL RDW (12.1-15.1) % Plt Count (130-400) 10^3/c mm MPV (7.4-10.4) fL Neut % (Auto) % Lymph % (Auto) % [place]alba % (Auto) % Eos % (Auto) % Baso % (Auto) % Neut # (Auto) (1.8-7.7) 10^3/u L Lymph # (Auto) (0.8-4.8) 10^3/u L [place] # (Auto) (0.2-0.9) 10^3/u L Eos # (Auto) (0.0-0.8) 10^3/u L Baso # (Auto) (0.0-0.1) 10^3/u L Nucleated RBC % (a uto) % Nucleated RBCs # /100WBC PT (10.5-13.3) SECO NDS INR (0.8-1.2) APTT (23.9-36.7) SECO NDS Sodium 140 (136-145) mmol/L Potassium 3.7 (3.5-5.1) mmol/L Chloride 102 (98-107) mmol/L Carbon Dioxide 26 (22-29) mmol/L Anion Gap 15.7 (5-19) BUN 14 (8-23) mg/dL Creatinine 1.0 (0.7-1.2) mg/dL GFR Calculation 74.1 L (90-130) mL/min Glucose 108 (65-115) mg/dL POC Glucose (70-110) mg/dL Calculated Osmolal ity 287 (285-295) mOsm/k g Calcium 9.4 (8.5-10.5) mg/dL Total Bilirubin 0.6 (0.15-1.2) mg/dL AST 11 (0-40) U/L ALT 15 (0-41) U/L Alkaline Phosphata se 90 (40-130) IU/L Total Protein 7.7 (6.6-8.7) g/dL Albumin 4.5 (3.5-5.2) g/dL Globulin 3.2 (1.3-4.6) g/dL Discharge Plan Discharge Patient Disposition: Admitted As Inpatient Admit Provider: Lilliana Peraza Condition: Serious Discharge Date/Time: 05/18/20 17:23 Coding Level of Care Code ED [employer] Station Clerk for Chg Fwd Exam Problem Focused
[2020-05-18 13:18] LABS: Basophils % 0.6 %; Eosinophils % 0.2 %; Hematocrit 44.6 % (42.0-52.0); Hemoglobin 14.8 g/dL (11.7-16.6); Lymphocytes # 1.5 10^3/uL (0.8-4.8); Mean Corpuscular HGB Conc 33.2 g/dL (30.0-36.0); Mean Corpuscular Hemoglobin 32.1 pg (28.0-34.0); Mean Corpuscular Volume 96.7 fL (80-94); Mean Platelet Volume 11.6 fL (7.4-10.4); Monocytes # 0.5 10^3/uL (0.2-0.9); Monocytes % 9.5 %; Neutrophils # 2.74 10^3/uL (1.8-7.7); Neutrophils % 57.7 %; Nucleated Red Blood Cells % 0 %; Platelet Count 209 10^3/cmm (130-400); Red Blood Count 4.61 10^6/uL (4.1-5.3); Red Cell Distribution Width 13.2 % (12.1-15.1); White Blood Count 4.8 10^3/uL (4.0-10.0)
[2020-05-18 13:21] LABS: Glucose Point of Care 102 mg/dL (70-110)
[2020-05-18 13:29] LABS: INR 1.02 (0.8-1.2)
[2020-05-18] MEDS: iodixanol 320 mg/mL 100mL Btl 95 ML IV (13:29)
[2020-05-18 13:30] LABS: Partial Thromboplastin Time 31.2 SECONDS (23.9-36.7)
[2020-05-18 13:33] LABS: Alanine Aminotransferase 15 U/L (0-41); Albumin Level 4.5 g/dL (3.5-5.2); Alkaline Phosphatase 90 IU/L (40-130); Anion Gap 15.7 (5-19); Aspartate Amino Transferase 11 U/L (0-40); Blood Urea Nitrogen 14 mg/dL (8-23); Calcium 9.4 mg/dL (8.5-10.5); Carbon Dioxide 26 mmol/L (22-29); Chloride 102 mmol/L (98-107); Globulin 3.2 g/dL (1.3-4.6); Glomerular Filtration Rate 74.1 mL/min (90-130); Glucose 108 mg/dL (65-115); Osmolality Calculated 287 mOsm/kg (285-295); Potassium 3.7 mmol/L (3.5-5.1); Sodium 140 mmol/L (136-145); Total Bilirubin 0.6 mg/dL (0.15-1.2); Total Protein 7.7 g/dL (6.6-8.7)
[2020-05-18] MEDS: sodium chloride 0.9% 500 ML 999 ML IV (13:45)
--- NOTE | 2020-05-18 18:30 | PC.NURSE ---
admitted into room 111-2 from er.report received.pt is alert and awake and oriented x3.perrl.slightly aphasic.right side hemiparesis.sb on monitor.oriented to room environment...instructed to notify staff for any pain,dizziness,sob..or for any concerns at all.also instructed to not attempt to get out of bed with-out staff assistance.pt verb understanding of instructions.
--- NOTE | 2020-05-18 18:41 | PM.HP ---
Providers/Chief Complaint Admitting Physician: Lilliana Peraza MD Primary Care Provider: Coretta Vu APN Chief Complaint: POSS STROKE History of Present Illness Kelvin Pressley is a 69 year old male with PMHx of prior CVA, HTN, Chronic smoker, presents with complaints of worsening right-sided weakness, speech impairment, difficulty ambulating since Thursday. He has had prior strokes in the past with some residual right-sided weakness and speech impairment. Right-sided weakness has increased progressively since Thursday to the point where he has significant difficulty ambulating, with some noted difficulty swallowing and more apparent aphasia. He is a chronic smoker, states that he takes lisinopril for hypertension but no other meds. Prior to the onset of his symptoms he was ambulating independently. Came in as a code stroke with initial NIHSS of 10. Tele-stroke at [facility] contacted, due to timeline of presentation not deemed an appropriate TPA candidate. Did recommend CTA of the head and neck which is unremarkable in terms of significant occlusion or stenosis. Recommended against aggressive blood pressure control with a threshold of 220/110 in terms of intervention. He presented with hypertensive urgency with initial blood pressure of 208/116. CT head is reported as focal hypodensity in the left medial zeyad. Chest x-ray is unremarkable, CBC is within normal limits, normal electrolytes, normal renal function, normal LFTs. He is evaluated once moved to the floor. He is quite emotional with significant expressive aphasia during my bedside assessment. Hypertension persists and he is noted to be bradycardic on telemetry with heart rates in the 40s. Pending bedside dysphasia screening. For now we will start on ASA OR. Had requested that ER physician explained to the patient that we do not have in-house neurology available in case of worsening symptoms and patient has opted to remain at our facility for continued care. He is aware that if he does decompensate he will require transfer to a higher level of care which she is agreeable to. Due to noted deficits, will require further work-up and management. Discussed possibility of SNF placement and he would prefer to return home on discharge. Review of Systems Const: Denies: fever(s), chills or change in appetite Eyes: Reports: blind spots; Denies: blurry vision ENMT: Reports: dry mouth and other (difficulty swallowing) Card: Denies: chest pain, swelling of feet/ankles, lightheadedness, syncope or pre-syncope Resp: Denies: dyspnea, productive cough or non-productive cough GI: Denies: abdominal pain, nausea, vomiting, hematemesis or hematochezia : Denies: dysuria, urinary frequency or hematuria Musc: Denies: back pain Skin/Breast: Denies: rash Neuro: Reports: weakness in extremities, difficulty walking (due to RLE weakness), Slurred speech present and other (difficulty expressing words); Denies: numbness in extremities, frequent falls, dizziness, vertigo or confusion Psych: Reports: other (very emotional) Medications/Allergies Home Medications Medication Instructions Recorded Confirmed Last Taken Type lisinopril 40 mg PO DAILY 01/26/20 05/18/20 01/26/20 History Allergies Allergy/AdvReac Type Severity Reaction Status Date / Time codeine Allergy ADR-Nausea Verified 05/18/20 12:58 PFSH Acute PFSH: Medical History (Updated 05/18/20 @ 19:20 by Lilliana Peraza MD) BPH (benign prostatic hyperplasia) Depression Displaced fracture of distal end of radius History of CVA with residual deficit Hypertension Surgical History (Updated 05/18/20 @ 19:01 by Lilliana Peraza MD) H/O hand surgery -right hand History of surgery on right wrist Family History Grandfather Stroke Social History (Updated 05/18/20 @ 18:59 by Lilliana Peraza MD) Smoking and tobacco status: current every day smoker cigarettes Packs smoked per day: 1 Alcohol intake: never Substance/Drug Use: never Household members: spouse Marital status: Vitals/I&O/Wt Last Vital Signs Temp 98.5 F 05/18/20 12:55 Pulse 42 L 05/18/20 17:45 Resp 21 H 05/18/20 17:45 BP 200/94 05/18/20 17:45 Pulse Ox 100 05/18/20 17:45 05/18/20 05/18/20 05/18/20 06:59 14:59 22:59 Intake Total 500 / 500 Balance 500 / 500 Weight last 48 hrs Weight 74.661 kg Physical Exam Const: COMMON NORMALS: no acute distress, patient oriented x3 and alert GENERAL APPEARANCE: cooperative and comfortable ORIENTATION/CONSCIOUSNESS: Yes awake HENMT: COMMON NORMALS: normocephalic, atraumatic, hearing grossly normal bilaterally and moist oral mucous membranes HEAD & SCALP: normocephalic and atraumatic Eye: COMMON NORMALS: Equal, round and reactive pupils present, EOMs intact bilaterally and conjunctivae normal CONJUNCTIVA: Yes conjunctivae normal PUPIL: Yes Equal, round and reactive pupils present Neck/C-Spine: COMMON NORMALS: full ROM GENERAL: Yes normal visual inspection and Yes trachea midline Resp: COMMON NORMALS: normal respiratory effort, No retractions, No use of accessory muscles and clear to auscultation bilaterally EFFORT & INSPECTION: Yes able to speak in complete sentences, Yes symmetric chest movement and No tachypneic AUSCULTATION: clear to auscultation bilaterally Cardio: COMMON NORMALS: regular rhythm, S1 normal heart sound present, S2 normal heart sound present and No murmurs present (Cardio) RATE: bradycardic RHYTHM: regular rhythm HEART SOUNDS: S1 normal heart sound present and S2 normal heart sound present GI: COMMON NORMALS: Normal to inspection, nondistended, normoactive bowel sounds present, Soft to palpation and non-tender PALPATION: Yes Soft to palpation Extremity: COMMON NORMALS: normal to inspection, no clubbing, cyanosis or edema and no pedal edema OTHER: -unable to move RUE and RLE against gravity Neuro: COMMON NORMALS: patient oriented x3 SENSORIUM/ORIENTATION: Yes alert SPEECH: expressive aphasia SENSORY EXAM: Yes extremities (gross sensation intact though slightly diminished on R) MOTOR EXAM: no tremor noted and Normal motor muscle tone present throughout OTHER: -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 technician 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, unable to raise RUE and RLE against gravity or with resistance, strength diminished on R Psych: COMMON NORMALS: mental status grossly normal, Normal thought process present, cooperative and speech normal APPEARANCE: Yes grossly normal ATTITUDE: Yes calm ACTIVITY/MOTOR BEHAVIOR: Yes appropriate eye contact SPEECH: Yes Other speech symptoms (expressive aphasia) MOOD & AFFECT: Yes Flat affect present THOUGHT PROCESS: Normal thought process present Skin: COMMON NORMALS: no rashes or lesions noted, no jaundice, no petechiae and no mottling GENERAL SKIN EXAM: no rashes or lesions noted Data : 05/18/20 13:07 05/18/20 13:07 A&P Assessment and plan (1) CVA (cerebral vascular accident): -Symptoms initially presented on Thursday with noted right upper and right lower extremity hemiparesis, progressively increasing expressive aphasia, noted clumsiness and difficulty with ambulation -Patient already has history of prior CVAs with noted residual right-sided weakness and some speech impairment as well -CT head: focal hypodensity within L medial zeyad, may need MRI which can be done as outpatient as will not change current management -CTA H/N: no significant stenosis or occlusion -came in as code stroke, NIHSS-10, [facility] tele-stroke contacted, not tPA appropriate due to window of presentation, recommended against aggressive BP control (threshold of >220/110 for treatment) -telemetry monitoring -monitor vital signs -Echo ordered, prior one done in 2018 showed EF=65%, no RWMA, mild pulmonary HTN, trace to mild TR, trace MR -bedside dysphagia screening -ASA OR until PO appropriate -PT/OT/ST evaluation -order A1c, TSH, lipid panel -can start Plavix, statin once PO appropriate Status: Acute Qualifiers: CVA mechanism: unspecified Qualified Code(s): I63.9 - Cerebral infarction, unspecified (2) Bradycardia: -has been noted to be bradycardic in the past, with HR in the 40s -has had Holter monitoring in 03/2018 showing baseline normal sinus rhythm with frequent PVCs, no significant pauses or bradycardia noted -telemetry monitoring Status: Chronic (3) Depression: -quite emotional following this event, high risk for worsening depression with recurrent CVA -med list does not include antidepressants but may benefit from this if continued depressive symptoms Status: Chronic Qualifiers: Depression Type: unspecified Qualified Code(s): F32.9 - Major depressive disorder, single episode, unspecified (4) BPH (benign prostatic hyperplasia): -had previously been on tamsulosin though not included in med list Status: Chronic Qualifiers: Lower urinary tract symptom presence: unspecified whether lower urinary tract symptoms present Qualified Code(s): N40.0 - Benign prostatic hyperplasia without lower urinary tract symptoms (5) Hypertension: -currently hypertensive, permissive HTN x 24 hrs and avoidance of strict BP control -monitor vital signs Status: Chronic Qualifiers: Hypertension type: unspecified Qualified Code(s): I10 - Essential (primary) hypertension Additional A&P Information -Chronic smoker: 1 PPD, nicotine replacement therapy -recent R distal radius displaced and comminuted fracture; s/p ORIF (01/27/20) by Dr. Giraldo -DVT ppx with lovenox -Dispo: discussed possibility of SNF and patient reports wanting to return home -Code status: FULL code Attestations Medical Necessity Statement*: [facility]'s hospital stay will require greater than 2 midnights for management of CVA including completion of workup and therapy evaluations. Time Spent in Patient Care: Greater than 35 minutes (>than 50% of time spent in counselling and/or direct pt care on unit). 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
[2020-05-18] MEDS: enoxaparin 40 mg/0.4 mL Syringe SUBCUT (19:30)
[2020-05-18] MEDS: sodium chloride 0.45% 1,000 ML 75 ML IV (19:30)
[2020-05-19] VITALS (8 sets, daily range): BP systolic 170–209; BP diastolic 81–98; PULSE 40–54; RESP 13–21; TEMP 36.8–37; O2SAT 99–100
[2020-05-19 06:12] LABS: Basophils % 0.6 %; Eosinophils % 0.8 %; Hematocrit 42.9 % (42.0-52.0); Lymphocytes # 1.8 10^3/uL (0.8-4.8); Lymphocytes % 35.8 %; Mean Corpuscular HGB Conc 32.6 g/dL (30.0-36.0); Mean Corpuscular Hemoglobin 31.6 pg (28.0-34.0); Mean Corpuscular Volume 96.8 fL (80-94); Mean Platelet Volume 12.5 fL (7.4-10.4); Monocytes # 0.6 10^3/uL (0.2-0.9); Monocytes % 11.2 %; Neutrophils # 2.53 10^3/uL (1.8-7.7); Neutrophils % 51.4 %; Nucleated Red Blood Cells % 0 %; Platelet Count 185 10^3/cmm (130-400); Red Blood Count 4.43 10^6/uL (4.1-5.3); Red Cell Distribution Width 13.1 % (12.1-15.1); White Blood Count 4.9 10^3/uL (4.0-10.0)
[2020-05-19 06:38] LABS: Anion Gap 16.2 (5-19); Blood Urea Nitrogen 14 mg/dL (8-23); Calcium 8.7 mg/dL (8.5-10.5); Carbon Dioxide 24 mmol/L (22-29); Chloride 104 mmol/L (98-107); Glomerular Filtration Rate 95.8 mL/min (90-130); Glucose 85 mg/dL (65-115); Osmolality Calculated 287 mOsm/kg (285-295); Potassium 3.2 mmol/L (3.5-5.1); Sodium 141 mmol/L (136-145); Thyroid Stimulating Hormone 2.87 uIU/mL (0.27-4.20)
--- NOTE | 2020-05-19 06:38 | PC.NURSE ---
Pt unable to void after multiple attempts. Bladder scan showed > [address] Garcia notified. Orders received to bladder scan at 0900 if pt still unable to void and notify hospitalist of results.
[2020-05-19 09:10] LABS: Specific Gravity, Urine 1.015 (1.005-1.030); Urine Appearance Clear (CLEAR); Urine Color Dark Yellow (Yellow); pH Urine 5 (5-7)
[2020-05-19 09:11] LABS: Add Urine Culture? No; Add Urine Microscopic? YES; Bacteria Urine TRACE; Bilirubin Urine 1+ (NEGATIVE); Blood Urine Neg (Negative); Glucose Urine UA Norm (Normal); Ketones Urine Negative (Negative); Leukocyte Esterase Urine Negative (Negative); Mucus Urine 1+; Nitrate Urine Negative (Negative); Protein Urine Trace (Negative); Transitional Epi Cells Urine RARE /hpf; Urobilinogen Urine 1 mg/dL (Negative); WBC Urine 0-4 /hpf (0-5)
[2020-05-19 09:29] LABS: Estmated Average Glucose 111; Hemoglobin A1C 5.5 % (4.0-6.0)
[2020-05-19 09:55] LABS: Chol HDL Ratio 6.48 mg/dL (1.0-5.00); Cholesterol 175 mg/dL (0-200); HDL Cholesterol 27 mg/dL (60-100); LDL Cholesterol Calculated 125 mg/dL (50-129); LDL HDL Ratio 4.63 RATIO (0.00-3.22); Triglycerides 117 mg/dL (0-150)
--- NOTE | 2020-05-19 09:57 | PC.CHAP ---
Pastoral Care Encounter/Spiritual Assessment Type of Contact [] Declined communications writer visit [] Patient/Family/Request visit [] Outpatient visit [] Follow-up visit [] Physician referral [] Code/Alert [X] Routine visit [] Staff referral [] Actively dying [] Patient sleeping [] Family support [] [] Out of room [] Palliative care [] [] Receiving care in room [] Pre-surgical visit [] Trauma [] Long length of stay [] ICU visit [] Other: Relational/Emotional Strength [] Patient feels connected with others/family/visitors/staff [] Distress [] Loneliness/isolation [] Abandonment Spirituality of Patient [] Person of Sarah [] Attends Yazidi of their Sarah [] Believes in Prayer [] Reads Bible or Hoahaoism materials [] There are Spiritual issues to be addressed Archeology Faculty Member Interventions [] Prayer [] Active listening [] Non-anxious presence [] Spiritual/emotional support [] Crisis/trauma care [] Spiritual counseling [] Bereavement support [] Provided bereavement packet [] Provided Bible/devotional materials [] Provided toy/stuffed animal, coloring book to patient or family member [] Provided Communion [] Anointing/[place] [] Salvation [] Completed spiritual assessment [] Other: Impact on Illness or Injury [] Angry [] Fearful [] Anxious [] Often cries [] Exhaustion [] Unable to work [] Unable to attend zoroastrianism [] Unable to walk/stand [] Unable to read [] Unable to drive [] Unable to eat/drink [] Unable to sleep [] Unable to be with family [] Patient intubated [] Other: Summary Time spent with patient
[2020-05-19] MEDS: pantoprazole 40 mg SDV IVP (10:05)
[2020-05-19] MEDS: sodium chloride 0.45% 1,000 ML 75 ML IV (12:05)
--- NOTE | 2020-05-19 12:37 | PM.PN ---
Subjective Subjective: Interval history: Patient had noted difficulty voiding overnight, after multiple attempts and straight catheterization x 1, able to void earlier this AM. Cleared for pureed diet with nectar thick liquids. Has been able to stand during attempts to void. Remains aphasic and dysarthric. Hypertensive, bradycardic. Slight hypokalemia, replace PO but patient unable to take it orally so switched to IV. He is also able to move his right upper extremity with some assistance from his left. Continues to be quite discouraged and in low spirits. Medications: Reviewed: Yes Medication Review Details: Active Medications Generic Name Dose Route Start Last Admin Trade Name Freq PRN Reason Stop Dose Admin Aspirin 81 mg 05/19/20 12:40 Aspirin Ec PO DAILY ROBIN Atorvastatin Calci um 40 mg 05/19/20 21:00 Lipitor PO BEDTIME ROBIN Denture Adhesive 1 applic 05/19/20 10:22 Fixodent DENTAL PRN PRN denture adhesive Enoxaparin Sodium 40 mg 05/18/20 18:45 05/18/20 19:30 Lovenox SUBCUT 40 mg Q24H ROBIN Administration Hydralazine HCl 10 mg 05/18/20 18:48 Apresoline IVP Q4H PRN blood pressure Lorazepam 0.5 mg 05/18/20 18:41 Ativan IVP Q6H PRN ANXIETY Nicotine 1 patch 05/19/20 09:00 05/19/20 10:05 Nicoderm 14 Mg P atch TRANSDERMA Not Given DAILY ROBIN Ondansetron HCl 4 mg 05/18/20 18:41 Zofran IVP Q6H PRN NAUSEA AND VOMITI NG Pantoprazole Sodiu m 40 mg 05/19/20 09:00 05/19/20 10:05 Protonix IVP 40 mg DAILY ROBIN Administration Potassium Chloride 40 meq 05/19/20 12:36 Potassium Chlori de Oral Liquid PO 05/19/20 12:37 ONCE ONE codeine Allergy (Verified 05/18/20 12:58) ADR-Nausea Vitals/I&O/Wt Last Vital Signs Temp 98.3 F 05/19/20 10:03 Pulse 47 L 05/19/20 10:03 Resp 21 H 05/19/20 10:03 BP 183/89 05/19/20 10:03 Pulse Ox 100 05/19/20 10:03 05/18/20 05/19/20 05/19/20 22:59 06:59 14:59 Intake Total 0 / 500 0 / 500 1000 / 1000 Balance 0 / 500 0 / 500 1000 / 1000 Weight last 48 hrs Weight 80.966 kg Weight 74.661 kg Physical Exam Const: COMMON NORMALS: no acute distress, patient oriented x3 and alert GENERAL APPEARANCE: cooperative and comfortable ORIENTATION/CONSCIOUSNESS: Yes awake HENMT: COMMON NORMALS: normocephalic, atraumatic, hearing grossly normal bilaterally and moist oral mucous membranes HEAD & SCALP: normocephalic and atraumatic Eye: COMMON NORMALS: Equal, round and reactive pupils present, EOMs intact bilaterally and conjunctivae normal CONJUNCTIVA: Yes conjunctivae normal PUPIL: Yes Equal, round and reactive pupils present Neck/C-Spine: COMMON NORMALS: full ROM GENERAL: Yes normal visual inspection and Yes trachea midline Resp: COMMON NORMALS: normal respiratory effort, No retractions, No use of accessory muscles and clear to auscultation bilaterally EFFORT & INSPECTION: Yes able to speak in complete sentences (though aphasic and dysarthric), Yes symmetric chest movement and No tachypneic AUSCULTATION: clear to auscultation bilaterally Cardio: COMMON NORMALS: regular rhythm, S1 normal heart sound present, S2 normal heart sound present and No murmurs present (Cardio) RATE: bradycardic RHYTHM: regular rhythm HEART SOUNDS: S1 normal heart sound present and S2 normal heart sound present GI: COMMON NORMALS: Normal to inspection, nondistended, normoactive bowel sounds present, Soft to palpation and non-tender PALPATION: Yes Soft to palpation Extremity: COMMON NORMALS: normal to inspection, no clubbing, cyanosis or edema and no pedal edema OTHER: -able to move RUE slightly and with some assistance from LUE; able to wiggle his toes and slightly pump his R foot unable to raise RLE from the bed Neuro: COMMON NORMALS: patient oriented x3 SENSORIUM/ORIENTATION: Yes alert SPEECH: expressive aphasia and Other neuro speech findings (noted dysarthria) SENSORY EXAM: Yes extremities (gross sensation intact though slightly diminished on R) MOTOR EXAM: no tremor noted and Normal motor muscle tone present throughout OTHER: -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 to transplant registered nurse on R, unable to raise RUE and RLE against gravity or with resistance, strength diminished on R Psych: COMMON NORMALS: mental status grossly normal, Normal thought process present and cooperative APPEARANCE: Yes grossly normal ATTITUDE: Yes calm ACTIVITY/MOTOR BEHAVIOR: Yes appropriate eye contact SPEECH: Yes Other speech symptoms (expressive aphasia) MOOD & AFFECT: Yes Flat affect present THOUGHT PROCESS: Normal thought process present Skin: COMMON NORMALS: no rashes or lesions noted, no jaundice, no petechiae and no mottling GENERAL SKIN EXAM: no rashes or lesions noted Data : 05/19/20 04:26 05/19/20 04:26 A&P Assessment and plan (1) CVA (cerebral vascular accident): -Symptoms initially presented on Thursday (05/13) with noted right upper and right lower extremity hemiparesis, progressively increasing expressive aphasia, dysarthria, noted clumsiness and difficulty with ambulation -Patient already has history of prior CVAs with noted residual right-sided weakness and some speech impairment as well -CT head: focal hypodensity within L medial zeyad, may need MRI which can be done as outpatient as will not change current management -CTA H/N: no significant stenosis or occlusion -came in as code stroke, NIHSS-10, [facility] tele-stroke contacted, not tPA appropriate due to window of presentation, recommended against aggressive BP control (threshold of >220/110 for treatment) -telemetry monitoring -hypertensive though still within parameters; continue to monitor vital signs -Echo: EF=65%, G1DD, no RWMA, trace MR; prior one done in 2018 showed EF=65%, no RWMA, mild pulmonary HTN, trace to mild TR, trace MR -bedside dysphagia screening done, ST evaluation appreciated; can start on dysphagia pureed diet with nectar thick liquids -ASA ID until PO appropriate -PT/OT evaluations -noted A1c, TSH, lipid panel -start on Plavix, statin Status: Acute Qualifiers: CVA mechanism: unspecified Qualified Code(s): I63.9 - Cerebral infarction, unspecified (2) Bradycardia: -has been noted to be bradycardic in the past, with HR in the 40s -has had Holter monitoring in 03/2018 showing baseline normal sinus rhythm with frequent PVCs, no significant pauses or bradycardia noted -telemetry monitoring Status: Chronic (3) Depression: -quite emotional following this event, high risk for worsening depression with recurrent CVA -med list does not include antidepressants but may benefit from this if continued depressive symptoms Status: Chronic Qualifiers: Depression Type: unspecified Qualified Code(s): F32.9 - Major depressive disorder, single episode, unspecified (4) BPH (benign prostatic hyperplasia): -had previously been on tamsulosin though not included in med list -with noted difficulty voiding and need for straight catheterization Status: Chronic Qualifiers: Lower urinary tract symptom presence: unspecified whether lower urinary tract symptoms present Qualified Code(s): N40.0 - Benign prostatic hyperplasia without lower urinary tract symptoms (5) Hypertension: -currently hypertensive, permissive HTN x 24 hrs and avoidance of strict BP control -hypertensive though still within parameters; continue to monitor vital signs Status: Chronic Qualifiers: Hypertension type: unspecified Qualified Code(s): I10 - Essential (primary) hypertension Additional A&P Information -Chronic smoker: 1 PPD, nicotine replacement therapy -recent R distal radius displaced and comminuted fracture; s/p ORIF (01/27/20) by Dr. Giraldo -mild hypokalemia; replace as needed -start on dysphagia pureed diet with nectar thick liquids -DVT ppx with lovenox -Dispo: discussed possibility of SNF and patient reports wanting to return home, will likely need HH services once evaluated by therapy -Code status: FULL code Attestations Medical Necessity Statement*: Patient requires hospitalization for continued post-CVA care including therapy evaluations, initiation of dysphagia diet and oral meds today. Time Spent in Patient Care: 16 - 35 minutes (>than 50% of time spent in counselling and/or direct pt care on unit). 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
[2020-05-19] MEDS: potassium chloride oral liq 20 mEq/15 mL UDC 40 MEQ PO (13:41)
[2020-05-19] MEDS: aspirin 81 mg EC Tablet PO (13:42)
[2020-05-19] MEDS: tamsulosin 0.4 mg Capsule PO (13:42)
[2020-05-19] MEDS: clopidogrel 75 mg Tablet PO (13:42)
[2020-05-19] MEDS: fixodent 39 gm Tube 1 APPLIC DENTAL (13:46)
[2020-05-19] MEDS: potassium chloride premix 40 MEQ/100 ML PREMIX 25 MEQ IV (14:25)
[2020-05-19] MEDS: lidocaine 1% INJ 20 mL 5 ML IV (14:26)
--- NOTE | 2020-05-19 18:41 | USCV_ITS ---
Kelvin Pressley Age: 69 Gender: M : 1950 Exam Date: 05/19/2020 06:40 Ordering Phys: Lilliana Peraza MD Technologist: Melanie Solares [place] [facility] [place] CVA Workup BP: 180 / 98 HR: 43 Rhythm: Sinus bradycardia Technical Quality: Suboptimal MEASUREMENTS (Male / Female) Normal Values 2D ECHO LV Diastolic Diameter PLAX 4.2 cm 4.2 - 5.9 / 3.9 - 5.3 cm LV Systolic Diameter PLAX 2.2 cm LV Chamber Size 4.1 cm IVS Diastolic Thickness 1.8 cm 0.6 - 1.0 / 0.6 - 0.9 cm IVS Systolic Thickness 1.8 cm LVPW Diastolic Thickness 1.1 cm 0.6 - 1.0 / 0.6 - 0.9 cm LVPW Systolic Thickness 1.8 cm RV Chamber Size 1.4 cm LVOT Diameter 2.0 cm LV Ejection Fraction 2D Teich 79.9 % LA Diameter 3.5 cm LA Width 3.3 cm LA Height 4.3 cm RA Width 2.9 cm RA Height 5.6 cm Aorta at Sinotubular Diameter 2.3 cm M-MODE LV Diastolic Diameter MM 5.0 cm 4.2 - 5.9 / 3.9 - 5.3 cm LV Systolic Diameter MM 2.8 cm LV Ejection Fraction MM Teich 75.9 % IVS Diastolic Thickness MM 1.1 cm 0.6 - 1.0 / 0.6 - 0.9 cm IVS Systolic Thickness MM 1.4 cm LVPW Diastolic Thickness MM 1.3 cm 0.6 - 1.0 / 0.6 - 0.9 cm LVPW Systolic Thickness MM 1.8 cm RV Diastolic Diameter MM 2.5 cm Aortic Annulus Diameter 3.1 cm LA Ao Ratio MM 1.1 MV E Point Septal Separation 0.2 cm DOPPLER AV Peak Velocity 102.0 cm/s LVOT Peak Velocity 73.0 cm/s AV Area Cont Eq vti 2.1 cm squared AV Area Cont Eq pk 2.3 cm squared MV Area PHT 2.7 cm squared Mitral E to A Ratio 0.6 MV E' Velocity 8.0 cm/s Mitral E to MV E' Ratio 7.0 Mitral E to LV E' Lateral Ratio 6.5 Mitral E to LV E' Septal Ratio 7.7 TV Peak E Velocity 47.0 cm/s Right Atrial Pressure 3.0 mmHg PV Peak Velocity 66.0 cm/s RV Acceleration Time 0.1 s RV Ejection Time 0.3 s RV AcT/ET 0.4 FINDINGS Left Ventricle Normal left ventricular cavity size. Normal left ventricular systolic function. No regional wall motion abnormalities. Left ventricular ejection fraction is estimated at 65%. Grade I/IV diastolic dysfunction (abnormal relaxation filling pattern), normal to mildly elevated filling pressures. Right Ventricle The right ventricle is normal in size and function. RVSP could not be calculated due to incomplete tricuspid regurgitation velocity profile. Right Atrium The right atrium is normal in size. Left Atrium The left atrium is normal in size. Mitral Valve Mildly thickened mitral valve. No mitral valve stenosis. Trace mitral valve regurgitation. Aortic Valve Structurally normal aortic valve without significant sclerosis or stenosis. There is no aortic regurgitation. Tricuspid Valve Structurally normal tricuspid valve without significant stenosis or regurgitation. Pulmonic Valve Structurally normal pulmonic valve without significant stenosis. There is no pulmonic regurgitation. Pericardium Normal pericardium without effusion. Aorta Normal ascending aorta dimension. CONCLUSIONS 1-Normal left ventricular cavity size. Normal left ventricular systolic function. No regional wall motion abnormalities. Left ventricular ejection fraction is estimated at 65%. Grade I/IV diastolic dysfunction (abnormal relaxation filling pattern), normal to mildly elevated filling pressures. 2-The right ventricle is normal in size and function. RVSP could not be calculated due to incomplete tricuspid regurgitation velocity profile. 3-There is no pericardial effusion. 4-No significant valve abnormalities. 5-Right atrial pressure is around 5 mm of mercury. 6- When compared to the prior echocardiogram dated 03/30/2018 pulmonary artery systolic pressure was not measured due to insufficient TR jet however there is no other interval change. Corrine Roberts MD (Electronically Signed) Final Date: 19 May 2020 18:59 S
[2020-05-19] MEDS: enoxaparin 40 mg/0.4 mL Syringe SUBCUT (19:21)
[2020-05-19] MEDS: atorvastatin 40 mg Tablet PO (20:41)
--- NOTE | 2020-05-19 22:16 | PC.NURSE ---
Pt refused turning
[2020-05-20] VITALS (9 sets, daily range): BP systolic 127–186; BP diastolic 76–95; PULSE 39–70; RESP 12–22; TEMP 36.7–36.9; O2SAT 98–100
[2020-05-20 06:22] LABS: Potassium 3.6 mmol/L (3.5-5.1)
[2020-05-20] MEDS: tamsulosin 0.4 mg Capsule PO (09:25)
[2020-05-20] MEDS: clopidogrel 75 mg Tablet PO (09:25)
[2020-05-20] MEDS: aspirin 81 mg EC Tablet PO (09:25)
[2020-05-20] MEDS: pantoprazole 40 mg SDV IVP (09:25)
[2020-05-20] MEDS: lisinopril 20 mg Tablet 40 MG PO (10:54)
--- NOTE | 2020-05-20 14:03 | PM.DCS ---
Discharge Providers Date of Admission: 05/18/20 15:34 Date of Discharge: May 20, 2020 Attending Provider at Admission: Lilliana Peraza MD Attending Provider at Discharge: Lilliana Peraza MD Primary Care Provider: Coretta Vu APN Diagnoses at Discharge Discharge Diagnosis (1) CVA (cerebral vascular accident): Status: Acute Problem details: Symptoms initially presented on Thursday (05/13) with noted right upper and right lower extremity hemiparesis, progressively increasing expressive aphasia, dysarthria, noted clumsiness and difficulty with ambulation -Patient already has history of prior CVAs with noted residual right-sided weakness and some speech impairment as well -CT head: focal hypodensity within L medial zeayd, may need MRI which can be done as outpatient as will not change current management -CTA H/N: no significant stenosis or occlusion -came in as code stroke, NIHSS-10, [facility] tele-stroke contacted, not tPA appropriate due to window of presentation, recommended against aggressive BP control (threshold of >220/110 for treatment) -telemetry monitoring -hypertensive though still within parameters; continue to monitor vital signs -Echo: EF=65%, G1DD, no RWMA, trace MR; prior one done in 2018 showed EF=65%, no RWMA, mild pulmonary HTN, trace to mild TR, trace MR -bedside dysphagia screening done, ST evaluation appreciated; can start on dysphagia pureed diet with nectar thick liquids -PT/OT evaluations -noted A1c, TSH, lipid panel -on ASA, Plavix, statin Qualifiers: CVA mechanism: unspecified Qualified Code(s): I63.9 - Cerebral infarction, unspecified (2) Bradycardia: Status: Chronic Problem details: -has been noted to be bradycardic in the past, with HR in the 40s -has had Holter monitoring in 03/2018 showing baseline normal sinus rhythm with frequent PVCs, no significant pauses or bradycardia noted -telemetry monitoring (3) Depression: Status: Chronic Problem details: -quite emotional following this event, high risk for worsening depression with recurrent CVA -med list does not include antidepressants but may benefit from this if continued depressive symptoms Qualifiers: Depression Type: unspecified Qualified Code(s): F32.9 - Major depressive disorder, single episode, unspecified (4) BPH (benign prostatic hyperplasia): Status: Chronic Problem details: -had previously been on tamsulosin though not included in med list -with noted difficulty voiding and need for straight catheterization Qualifiers: Lower urinary tract symptom presence: unspecified whether lower urinary tract symptoms present Qualified Code(s): N40.0 - Benign prostatic hyperplasia without lower urinary tract symptoms (5) Hypertension: Status: Chronic Problem details: -currently hypertensive, permissive HTN x 24 hrs and avoidance of strict BP control -hypertensive though still within parameters; continue to monitor vital signs Qualifiers: Hypertension type: unspecified Qualified Code(s): I10 - Essential (primary) hypertension Other Information Additional DC diagnoses/information: -Chronic smoker: 1 PPD, nicotine replacement therapy -recent R distal radius displaced and comminuted fracture; s/p ORIF (01/27/20) by Dr. Giraldo Reason for Visit Reason for Visit: POSS STROKE Hospital Course Hospital Course: Patient was admitted to the cardiac stepdown unit and placed on telemetry monitoring. He had presented with symptoms concerning for CVA though due to timeline of presentation was not deemed an appropriate candidate for tPA or other intervention. [facility] was contacted and recommended against aggressive blood pressure control and other supportive management. CT of the head showed focal hypodensity within the left medial zeyad; CTA head and neck showed no significant stenosis or occlusion. Echo is as reported above with ejection fraction of 65% and grade 1 diastolic dysfunction. He was started on aspirin, Plavix and statin once cleared for oral intake by speech therapy. Dysphagia diet with thin liquids was recommended. He has been evaluated by physical therapy and occupational therapy with recommendation made to continue skilled therapy. Patient would like to continue this in a home setting rather than rehab facility. Blood pressure has been managed as previously recommended, he has been consistently bradycardic which is his baseline. He has had prior work-up for this with a Holter monitor done in 03/2018 showing baseline normal sinus rhythm. He appears quite emotional and is at risk for worsening depression so has been referred to [facility] for further evaluation. Home health services have been arranged to continue speech, occupational and physical therapy. He will need to follow-up with his primary care provider within 1 week. Smoking cessation is strongly encouraged. He has been referred to neurology. Of note he did have some difficulty with urination initially and required straight catheterization x 1. Tamsulosin has been added and he has had an easier time voiding. This will be continued on discharge. Discharge Summary: -Patient to follow-up with his primary care provider within 1 week -Patient to follow-up with Dr. Jeffrey as soon as next available appointment Physical Exam Const: COMMON NORMALS: no acute distress, patient oriented x3 and alert GENERAL APPEARANCE: cooperative and comfortable ORIENTATION/CONSCIOUSNESS: Yes awake HENMT: COMMON NORMALS: normocephalic, atraumatic, hearing grossly normal bilaterally and moist oral mucous membranes HEAD & SCALP: normocephalic and atraumatic Eye: COMMON NORMALS: Equal, round and reactive pupils present, EOMs intact bilaterally and conjunctivae normal CONJUNCTIVA: Yes conjunctivae normal PUPIL: Yes Equal, round and reactive pupils present Neck/C-Spine: COMMON NORMALS: full ROM GENERAL: Yes normal visual inspection and Yes trachea midline Resp: COMMON NORMALS: normal respiratory effort, No retractions, No use of accessory muscles and clear to auscultation bilaterally EFFORT & INSPECTION: Yes able to speak in complete sentences (though aphasic and dysarthric), Yes symmetric chest movement and No tachypneic AUSCULTATION: clear to auscultation bilaterally Cardio: COMMON NORMALS: regular rhythm, S1 normal heart sound present, S2 normal heart sound present and No murmurs present (Cardio) RATE: bradycardic RHYTHM: regular rhythm HEART SOUNDS: S1 normal heart sound present and S2 normal heart sound present GI: COMMON NORMALS: Normal to inspection, nondistended, normoactive bowel sounds present, Soft to palpation and non-tender PALPATION: Yes Soft to palpation Extremity: COMMON NORMALS: normal to inspection, no clubbing, cyanosis or edema and no pedal edema OTHER: -able to move RUE slightly and with some assistance from LUE; able to wiggle his toes and slightly pump his R foot, able to raise RLE from the bed to about 20 degrees Neuro: COMMON NORMALS: patient oriented x3 SENSORIUM/ORIENTATION: Yes alert SPEECH: expressive aphasia and Other neuro speech findings (noted dysarthria) SENSORY EXAM: Yes extremities (gross sensation intact though slightly diminished on R) MOTOR EXAM: no tremor noted and Normal motor muscle tone present throughout OTHER: -able to youth corrections officer (slightly) on R, unable to raise RUE against gravity or with resistance, strength diminished on R, able to raise RLE slightly off bed Psych: COMMON NORMALS: mental status grossly normal, Normal thought process present and cooperative APPEARANCE: Yes grossly normal ATTITUDE: Yes calm ACTIVITY/MOTOR BEHAVIOR: Yes appropriate eye contact SPEECH: Yes Other speech symptoms (expressive aphasia) MOOD & AFFECT: Yes Flat affect present (though seems to be in better spirits today) THOUGHT PROCESS: Normal thought process present Skin: COMMON NORMALS: no rashes or lesions noted, no jaundice, no petechiae and no mottling GENERAL SKIN EXAM: no rashes or lesions noted Discharge Data Data Completed and Pending: Completed Studies During Hospitalization Category Date Time Status CT angio headneck * [id number] Stat Cat Scan 05/18/20 12:[address] head wo con* [id number] Stat Cat Scan 05/18/20 12:58 Completed XR chest 1V sil ble [id number] Stat Exams 05/18/20 12:58 Completed CV echo complete* [id number] Routine Ultrasound 05/19/20 18:41 Completed Labs from last 24 hours 05/20/20 05:06 Potassium 3.6 Vitals: Last Vital Signs Temp 98.5 F 05/20/20 13:35 Pulse 48 L 05/20/20 13:35 Resp 18 05/20/20 13:35 BP 168/78 05/20/20 13:35 Pulse Ox 100 05/20/20 13:35 Discharge Plan Discharge Patient Disposition: Home, Self-Care Condition: Stable Prescriptions: New aspirin 81 mg Tablet,Delayed Release (Dr/Ec) 81 mg PO DAILY 30 Days Qty: 30 RF: 0 atorvastatin 40 mg Tablet 40 mg PO BEDTIME 30 Days Qty: 30 RF: 0 clopidogrel 75 mg Tablet 75 mg PO DAILY 30 Days Qty: 30 RF: 0 tamsulosin 0.4 mg Capsule 0.4 mg PO DAILY 30 Days Qty: 30 RF: 0 Continued lisinopril 40 mg Tablet 40 mg PO DAILY 30 Days Qty: 30 RF: 0 Discharge Orders: Discharge Order (Routine); Ordered 05/20/20 Ordered By: Lilliana Peraza Referrals: Shasha Jeffrey MD [Physician] - 1 month ([facility] will be calling to schedule a followup with Dr. Jeffrey to be seen in 1 month. If you do not hear from them within a reasonable amount of time, please give them a call. Thank you) Coretta Vu APN [Primary Care Provider] - 4-7 days (Post hospital discharge follow up. Treated for CVA. [facility] will be calling to schedule a hospital followup to be seen in 4 to 7 days. If you don't hear from them by Thursday afternoon, please give them a call. Thank you) [facility], [Staff Physician] - 2 weeks (Patient needs to be evaluated and treated if appropriate for depression. ) Discharge Diet: Cardiac Discharge Activity: As per PT/OT instructions Activity Restrictions/Additional Instructions: -Please seek medical attention immediately should any of his symptoms worsen -Please strongly consider reducing or discontinuation of smoking Discharge Attestations Time Spent in Discharge Care*: greater than 30 min Specific Discharge Activities: Specific discharge activities: educating patient, discussing with returned case inspector/social workers/dc planners, documenting/other paperwork and evaluating patient/reviewing data Status at Discharge: Cognitive status at discharge: cognitively intact, Behavioral status at discharge: cooperative and dependent in ADL's, Functional status at discharge: uses cane/walker Overall status at discharge: patient is progressing back to baseline Quality Metrics Clinical Quality Measures During this hospital stay, did patient experience: None Coding Level of Care Code Acute Disability Counselor for Rollyg Fwd Diagnoses CVA (cerebral vascular accident) I63.9 CVA mechanism: unspecified Bradycardia R00.1 Depression F32.9 Depression Type: unspecified BPH (benign prostatic hyperplasia) N40.0 Lower urinary tract symptom presence: unspecified whether lower urinary tract symptoms present Hypertension I10 Hypertension type: unspecified
--- NOTE | 2020-05-20 15:52 | PC.NURSE ---
Patient was up in his room and ready to be discharge Pt motor function on right side has been used when he is up and moving around independently.
--- NOTE | 2020-05-20 16:00 | PC.NURSE ---
Discharge to home with home health services Instructed pt to follow-up with his pcp, neurologist and [facility] as discussed. Educated pt on the importance of taking his medications daily as prescribed, to contact doctors if he notice any sudden changes of his symptoms, stroke stoplight, self care measures after stroke, stroke prevention, stroke rehab, aspiration precautions, to check Blood pressure and follow-up appointments. Discharge papers provided to pt.
--- NOTE | 2020-05-21 12:54 | PC.SOCIAL ---
Post D/C phone call. Was reviewing patient's discharge instructions and called patient/spouse to clarify. Patient is needed a referral to [facility]. I explained to patient first, then to spouse that he needs to go to [facility] walk-in at [facility] from 7:30-3:00 pm Thursday-Thursday and request an intake visit. From there, they will get him the help he needs. I stressed that [facility] would not be reaching out to the patient as his discharge instructions state. I also reminded them that [facility] will be calling and they will likely begin services on Thursday. Spouse, Mandi, states she has already heard from them. Mandi/patient have no other questions at this time. Encouraged them to call [facility] with any further questions/concerns.
--- NOTE | 2020-05-21 16:46 | PC.RESP ---
Smoking Cessation sent to patient.
== END 2020-05-20 15:56 | disposition home or self-care (01) | DRG 64 ==
LOC: ER 14:01 → CSU 17:00
PROVIDERS: Emergency Medicine; Admitting Provider Family Medicine; PCP Nurse Practitioner Family; Visit Provider Family Medicine
DX: I63.9 Cerebral infarction, unspecified (principal); G83.5 Locked-in state; G81.91 Hemiplegia, unspecified affecting right dominant side; R47.01 Aphasia; R29.710 NIHSS score 10; R00.1 Bradycardia, unspecified; I10 Essential (primary) hypertension; F17.210 Nicotine dependence, cigarettes, uncomplicated; N40.0 Benign prostatic hyperplasia without lower urinary tract symptoms; F32.9 Major depressive disorder, single episode, unspecified
CPT/HCPCS: 12345; 36415; 36416; 51702; 70450; 70496; 70498; 71045; 80048; 80053; 80061; 81001; 81003; 82962; 83036; 84132; 84443; 85025; 85610; 85730; 92507; 92523; 92526; 92610; 93005; 93306; 96372; 96375; 97110; 97112; 97116; 97140; 97162; 97165; 97530; 97535; 99283; C9113; J1650; J3480; J7040; Q9967

== ENCOUNTER → 2020-06-08 12:21 | Outpatient (BNVA) | payer MEDICARE, SELFPAY | PROVIDERS: PCP Nurse Practitioner Family; Referring Provider Family Medicine; Visit Provider Specialist | DX: I63.512 Cerebral infarction due to unspecified occlusion or stenosis of left middle cerebral artery (principal); I69.30 Unspecified sequelae of cerebral infarction; F17.210 Nicotine dependence, cigarettes, uncomplicated; F32.9 Major depressive disorder, single episode, unspecified; I10 Essential (primary) hypertension | CPT/HCPCS: 99205 ==

== ENCOUNTER 2020-06-15 16:16 | Outpatient (CLI) | payer MEDICARE, SELFPAY ==
--- NOTE | 2020-06-15 16:45 | MRR_ITS ---
PROCEDURE INFORMATION: Exam: MR Head Without Contrast Exam date and time: 06/15/2020 4:21 PM Age: 69 years old Clinical indication: Other: TIA; Additional info: Z86.73 personal history of transient ischemic attack (tia. . . TECHNIQUE: Imaging protocol: MR of the head without contrast. COMPARISON: MRI Head w/wo* [id number] 03/30/2018 9:27 AM FINDINGS: Brain: Chronic infarct of the left zeyad. Mild chronic microvascular ischemic changes. No acute infarct. Ventricles: Normal. No ventriculomegaly. Bones/joints: Unremarkable. Sinuses: Normal as visualized. No acute sinusitis. Mastoid air cells: Effusion in the left mastoid air cells. Orbits: Unremarkable. Soft tissues: Unremarkable. Other findings: No hemorrhage. MR/MR head wo con* [id number] IMPRESSION: 1. No acute intracranial abnormality. 2. Chronic microvascular ischemic changes.
--- NOTE | 2020-06-15 16:45 | MRR_ITS ---
PROCEDURE INFORMATION: Exam: MR Angiogram Head Without Contrast, Arteries Exam date and time: 06/15/2020 4:21 PM Age: 69 years old Clinical indication: Other: TIA; Additional info: Z86.73 personal history of transient ischemic attack (tia. . . TECHNIQUE: Imaging protocol: MR angiogram head without contrast. Exam focused on the arteries. COMPARISON: CT angio headneck* [id number] 05/18/2020 1:16 PM FINDINGS: ANTERIOR CIRCULATION: Right internal carotid artery: Intracranial segment is patent with no significant stenosis. No aneurysm. Right middle cerebral artery: No occlusion or significant stenosis. No aneurysm. Right anterior cerebral artery: No occlusion or significant stenosis. No aneurysm. Left internal carotid artery: Intracranial segment is patent with no significant stenosis. No aneurysm. Left middle cerebral artery: No occlusion or significant stenosis. No aneurysm. Left anterior cerebral artery: No occlusion or significant stenosis. No aneurysm. POSTERIOR CIRCULATION: Right vertebral artery: No occlusion or significant stenosis. No aneurysm. Left vertebral artery: No occlusion or significant stenosis. No aneurysm. Basilar artery: Basilar artery is small in caliber and is likely an anatomical variant. Right posterior cerebral artery: No occlusion or significant stenosis. No aneurysm. Left posterior cerebral artery: No occlusion or significant stenosis. No aneurysm. Other vasculature: origin of bilateral posterior cerebral arteries. MR/MR angio head wo con [id number] IMPRESSION: No acute abnormality.
== END 2020-06-15 16:17 | disposition home or self-care (01) ==
LOC: RADSHAW 16:20
PROVIDERS: PCP Nurse Practitioner Family; Visit Provider Specialist
DX: Z86.73 Personal history of transient ischemic attack (TIA), and cerebral infarction without residual deficits (principal); I67.82 Cerebral ischemia
CPT/HCPCS: 70544; 70551

== ENCOUNTER → 2020-09-11 08:14 | Outpatient (BNVA) | payer MEDICARE, SELFPAY | PROVIDERS: PCP Nurse Practitioner Family; Visit Provider Nurse Practitioner Psychiatric/Mental Health | DX: F33.3 Major depressive disorder, recurrent, severe with psychotic symptoms (principal); F17.210 Nicotine dependence, cigarettes, uncomplicated | CPT/HCPCS: 99214 ==

== ENCOUNTER → 2020-10-08 13:01 | Outpatient (BNVA) | payer MEDICARE, SELFPAY | PROVIDERS: PCP Nurse Practitioner Family; Visit Provider Nurse Practitioner Psychiatric/Mental Health | DX: F33.3 Major depressive disorder, recurrent, severe with psychotic symptoms (principal); F17.210 Nicotine dependence, cigarettes, uncomplicated | CPT/HCPCS: 99214 ==

== ENCOUNTER → 2020-10-24 09:45 | Outpatient (BNVA) | payer MEDICARE, SELFPAY | PROVIDERS: PCP Nurse Practitioner Family; Visit Provider Specialist | DX: F33.3 Major depressive disorder, recurrent, severe with psychotic symptoms (principal); I69.30 Unspecified sequelae of cerebral infarction; F17.210 Nicotine dependence, cigarettes, uncomplicated | CPT/HCPCS: 99214 ==

== ENCOUNTER → 2020-11-19 12:40 | Outpatient (BNVA) | payer MEDICARE, SELFPAY | PROVIDERS: PCP Nurse Practitioner Family; Visit Provider Nurse Practitioner Psychiatric/Mental Health | DX: Z91.14 Patient's other noncompliance with medication regimen (principal); F33.3 Major depressive disorder, recurrent, severe with psychotic symptoms; F17.210 Nicotine dependence, cigarettes, uncomplicated | CPT/HCPCS: 99214 ==

== ENCOUNTER 2021-02-15 20:40 | Inpatient (IN) | payer MEDICARE, SELFPAY ==
[2021-02-15 20:40] VITALS: PULSE 58; RESP 18; TEMP 36.7; O2SAT 98; BMI 31.3
--- NOTE | 2021-02-15 20:43 | CTR_ITS ---
PROCEDURE INFORMATION: Exam: CT Head Without Contrast Exam date and time: 02/15/2021 8:44 PM Age: 70 years old Clinical indication: Weakness, extremity; Patient HX: Right sided weakness and drift. Possible aphasia. ; Additional info: CVA TECHNIQUE: Imaging protocol: Computed tomography of the head without contrast. Radiation optimization: All CT scans at this facility use at least one of these dose optimization techniques: automated exposure control; mA and/or kV adjustment per patient size (includes targeted exams where dose is matched to clinical indication); or iterative reconstruction. Other technique: STROKE PROTOCOL was implemented. COMPARISON: CT head wo con* [id number] 05/18/2020 12:43 PM RADIATION DOSE METRICS: Total DLP (mGy-cm): 855.45 FINDINGS: Brain: Tiny chronic lacunar infarctions are present in the left thalamus and zeyad. Mild atrophy and mild white matter chronic microvascular changes are noted. No hemorrhage or evidence of acute infarction is seen. Cerebral ventricles: No ventriculomegaly. Bones/joints: Unremarkable. No acute fracture. Paranasal sinuses: Visualized sinuses are unremarkable. No fluid levels. Mastoid air cells: Visualized mastoid air cells are well aerated. Soft tissues: Unremarkable. CT/CT head wo con* [id number] IMPRESSION: No acute intracranial abnormality. ASSESSMENT: ASPECTS ([place] Stroke Program Early CT Score) is 10. Radiation Dose CTDIVOL = (mGy): DLP = 855.45 (mGy-cm)
--- NOTE | 2021-02-15 20:43 | CTR_ITS ---
PROCEDURE INFORMATION: Exam: CT Angiography Head With Contrast Exam date and time: 02/15/2021 8:56 PM Age: 70 years old Clinical indication: Patient HX: Right sided weakness and drift. Possible aphasia. ; Additional info: CVA TECHNIQUE: Imaging protocol: Computed tomography angiography of the head with intravenous contrast. 3D rendering (Not supervised by radiologist): MIP and/or 3D reconstructed images were created by the technologist. Radiation optimization: All CT scans at this facility use at least one of these dose optimization techniques: automated exposure control; mA and/or kV adjustment per patient size (includes targeted exams where dose is matched to clinical indication); or iterative reconstruction. Contrast material: VISI 320; Contrast volume: 95 ml; Contrast route: INTRAVENOUS (IV); COMPARISON: CT angio headneck* [id number] 05/18/2020 1:16 PM RADIATION DOSE METRICS: Total DLP (mGy-cm): 2662.73 FINDINGS: ANTERIOR CIRCULATION: Right internal carotid artery: Unremarkable. Intracranial segment is patent with no significant stenosis. No aneurysm. Right middle cerebral artery: Unremarkable. No occlusion or significant stenosis. No aneurysm. Right anterior cerebral artery: Unremarkable. No occlusion or significant stenosis. No aneurysm. Left internal carotid artery: Mild stenosis of the proximal cavernous portion of the left ICA is appreciated. Left middle cerebral artery: Unremarkable. No occlusion or significant stenosis. No aneurysm. Left anterior cerebral artery: Unremarkable. No occlusion or significant stenosis. No aneurysm. POSTERIOR CIRCULATION: Right vertebral artery: Unremarkable. No occlusion or significant stenosis. No aneurysm. Left vertebral artery: Unremarkable. No occlusion or significant stenosis. No aneurysm. Basilar artery: Unremarkable. No occlusion or significant stenosis. No aneurysm. Right posterior cerebral artery: Unremarkable. No occlusion or significant stenosis. No aneurysm. Left posterior cerebral artery: Unremarkable. No occlusion or significant stenosis. No aneurysm. IMPRESSION: Mild stenosis of the proximal intracranial ICA. Otherwise, the intracranial arteries are patent. PROCEDURE INFORMATION: Exam: CT Angiography Neck With Contrast Exam date and time: 02/15/2021 8:56 PM Age: 70 years old Clinical indication: Patient HX: Right sided weakness and drift. Possible aphasia. ; Additional info: CVA TECHNIQUE: Imaging protocol: Computed tomography angiography of the neck with contrast. 3D rendering (Not supervised by radiologist): MIP and/or 3D reconstructed images were created by the technologist. Radiation optimization: All CT scans at this facility use at least one of these dose optimization techniques: automated exposure control; mA and/or kV adjustment per patient size (includes targeted exams where dose is matched to clinical indication); or iterative reconstruction. Contrast material: VISI 320; Contrast volume: 95 ml; Contrast route: INTRAVENOUS (IV); COMPARISON: CT angio headneck* [id number] 05/18/2020 1:16 PM RADIATION DOSE METRICS: Total DLP (mGy-cm): 2662.73 FINDINGS: Right common carotid artery: Noncalcified plaque causes mild stenosis of the mid to distal right common carotid artery and moderate stenosis of the right carotid bulb Right internal carotid artery: Moderate stenosis of the right ICA origin is noted. Right external carotid artery: No occlusion or stenosis of the origin. Right vertebral artery: No stenosis. No dissection or occlusion. Left common carotid artery: Noncalcified plaque causes diffuse [id number]-kcldhbmx stenosis of the entire left common carotid artery. Left internal carotid artery: Mild stenosis of the left ICA origin is appreciated. Left external carotid artery: No occlusion or stenosis of the origin. Left vertebral artery: No stenosis. No dissection or occlusion. Subclavian arteries: Severe stenosis of the proximal left subclavian artery is appreciated. Moderate to severe stenosis of the right subclavian artery origin is also seen. Bones/joints: Pnzo-ir-akwsohto degenerative changes are observed in the mid to lower cervical spine. No acute fracture. Spinal alignment is normal. Soft tissues: Normal. No significant soft tissue swelling. CT/CT angio headneck* [id number] IMPRESSION: 1. Mpnp-np-dkeswbzf stenosis of the entire left common carotid artery. 2. Mild stenosis of the mid to distal right common carotid artery and moderate stenosis of the right carotid bulb. 3. Moderate stenosis of the right ICA origin. 4. Mild stenosis of the left ICA origin. 5. Severe left and moderate to severe right subclavian artery stenoses REFERENCES: NASCET CRITERIA. The degree of internal carotid artery stenosis is based on NASCET criteria. Normal is no stenosis. Mild is less than 50% stenosis. Moderate is 50-69% stenosis. Severe is 70% to 99% stenosis. Total occlusion is no detectable patent lumen. Radiation Dose CTDIVOL = (mGy): DLP = 2662.73~2662.73 (mGy-cm)
--- NOTE | 2021-02-15 20:43 | XRR_ITS ---
PROCEDURE INFORMATION: Exam: XR Chest Exam date and time: 02/15/2021 9:28 PM Age: 70 years old Clinical indication: Shortness of breath; Additional info: AMS TECHNIQUE: Imaging protocol: XR of the chest. Views: 1 view. COMPARISON: CR XR chest 1V portable [id number] 05/18/2020 1:23 PM FINDINGS: Lungs: The lungs are clear. Pleural spaces: Unremarkable. No pleural effusion. No pneumothorax. Heart/Mediastinum: Unremarkable. No cardiomegaly. Bones/joints: Unremarkable. XR/XR chest 1V portable [id number] IMPRESSION: No acute cardiopulmonary abnormality.
--- NOTE | 2021-02-15 20:44 | ECG_ITS ---
[facility] Test Date: 2021-02-15 Pat Name: Kelvin Pressley Department: Room: 256 Gender: Male Casting Tester: : 1950 Requested By: Stuart Ordoñez Order Number: [id number] Hector MD: Trish Fountain M.D. Measurements Intervals [place] Rate: 49 P: -5 [place]: 159 QRS: 57 QRSD: 90 T: 55 QT: 488 QTc: 441 Interpretive Statements SINUS BRADYCARDIA MODERATE ST DEPRESSION [0.05+ mV ST DEPRESSION] Compared to ECG 05/18/2020 13:08:26 No significant changes Electronically Signed On 02-17-2021 10:39:05 CDT by Trish Fountain M.D. [id number] f
[2021-02-15] MEDS: iodixanol 320 mg/mL 100mL Btl IV (20:57)
[2021-02-15 20:58] LABS: Basophils % 0.2 %; Hematocrit 44.4 % (42.0-52.0); Lymphocytes # 0.9 10^3/uL (0.8-4.8); Mean Corpuscular HGB Conc 33.8 g/dL (30.0-36.0); Mean Corpuscular Hemoglobin 32.6 pg (28.0-34.0); Mean Corpuscular Volume 96.5 fL (80-94); Mean Platelet Volume 12.8 fL (7.4-10.4); Monocytes # 0.4 10^3/uL (0.2-0.9); Monocytes % 5.2 %; Neutrophils % 84.4 %; Nucleated Red Blood Cells % 0 %; Platelet Count 187 10^3/cmm (130-400); Red Cell Distribution Width 13.1 % (12.1-15.1); White Blood Count 8.5 10^3/uL (4.0-10.0)
--- NOTE | 2021-02-15 21:00 | PC.NURSE ---
bg 144
[2021-02-15 21:04] LABS: Glucose Point of Care 144 mg/dL (70-110)
--- NOTE | 2021-02-15 21:04 | PC.NURSE ---
EKG taken and given to Dr. Ordoñez
[2021-02-15 21:05] VITALS: BP 240/110; PULSE 47; RESP 15; O2SAT 99
[2021-02-15 21:06] LABS: ABG PCO2 43.7 mmHg (35-45); Arterial Blood Gas Hematocrit 43.9 % (42-52); Base Excess ABG 1.4 mmol/L (-2.0-2.0); Blood Gas Allen Test Pos; Blood Gas Sample Type Arterial; HCO3 ABG 26.7 mmol/L (22-26); PO2 ABG 81.7 mmHg (80.0-100.0)
[2021-02-15 21:07] LABS: Blood Gas Operator Identificat HARKR; Blood Gas Sample Site Radial, left; Oxygen Device ROOM AIR
--- NOTE | 2021-02-15 21:07 | W.ED.NEUROSD ---
HPI - Neuro Symptoms/Deficit General: Chief Complaint: Neuro Symptoms/Deficit Stated Complaint: stroke symptoms Time Seen by Provider: 02/15/21 20:43 Source: family and EMS Mode of arrival: EMS Limitations: altered mental status History of Present Illness: HPI Narrative: 70-year-old male has history of multiple strokes in the past and have his right-sided deficit from previous strokes. Patient here is not able to give any history due to confusion. I did speak to the on the phone is also not a very good historian. She states that over the last 2 days he has just had increasing weakness and some diarrhea. She states that he had multiple falls this morning has been extremely confused. She states that he has had increased weakness to his right side and much more slurred speech and confusion and she is concerned that he has had another stroke. His last known normal was yesterday. Patient here will respond to painful stimuli but unable to get any history from him at all. Review of Systems General: Reports: ROS unobtainable due to mental status [facility] ED PFSH: Medical History BPH (benign prostatic hyperplasia) -had previously been on tamsulosin though not included in med list -with noted difficulty voiding and need for straight catheterization Bradycardia -has been noted to be bradycardic in the past, with HR in the 40s -has had Holter monitoring in 03/2018 showing baseline normal sinus rhythm with frequent PVCs, no significant pauses or bradycardia noted -telemetry monitoring CVA (cerebral vascular accident) Symptoms initially presented on Thursday (05/13) with noted right upper and right lower extremity hemiparesis, progressively increasing expressive aphasia, dysarthria, noted clumsiness and difficulty with ambulation -Patient already has history of prior CVAs with noted residual right-sided weakness and some speech impairment as well -CT head: focal hypodensity within L medial zeyad, may need MRI which can be done as outpatient as will not change current management -CTA H/N: no significant stenosis or occlusion -came in as code stroke, NIHSS-10, [facility] tele-stroke contacted, not tPA appropriate due to window of presentation, recommended against aggressive BP control (threshold of >220/110 for treatment) -telemetry monitoring -hypertensive though still within parameters; continue to monitor vital signs -Echo: EF=65%, G1DD, no RWMA, trace MR; prior one done in 2018 showed EF=65%, no RWMA, mild pulmonary HTN, trace to mild TR, trace MR -bedside dysphagia screening done, ST evaluation appreciated; can start on dysphagia pureed diet with nectar thick liquids -PT/OT evaluations -noted A1c, TSH, lipid panel -on ASA, Plavix, statin Depression -quite emotional following this event, high risk for worsening depression with recurrent CVA -med list does not include antidepressants but may benefit from this if continued depressive symptoms Displaced fracture of distal end of radius History of CVA with residual deficit Hypertension -currently hypertensive, permissive HTN x 24 hrs and avoidance of strict BP control -hypertensive though still within parameters; continue to monitor vital signs Major depressive disorder, recurrent, severe with psychotic symptoms Nicotine dependence, cigarettes, uncomplicated Non compliance w medication regimen Surgical History H/O hand surgery -right hand History of surgery on right wrist Family History Grandfather Stroke Social History Smoking and tobacco status: current every day smoker cigarettes Packs smoked per day: 1 Alcohol intake: never Household members: spouse Marital status: 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 NIH stroke score NIHSS: Level Of Consciousness - 1a: 1 Level Of Consciousness Questions - 1b: Neither Correct Level Of Consciousness Commands - 1c: Both Correct Best Gaze - 2: Normal Visual Villegas - 3: No Visual Loss (unalbe to test) Facial Palsy - 4: Normal Motor Arm Right - 5: Effort Against Danevang Motor Arm Left - 5: No Drift Motor Leg Right - 6: No Effort Against Danevang Motor Leg Left - 6: No Drift Limb Ataxia - 7: Absent Sensory - 8: Normal Best Language - 9: Mild/Moderate Aphasia Dysarthia - 10: Mild/Moderate Dysarthia Extinction And Inattention - 11: 0 Score: Total Score: 10 Physical Exam Const: COMMON NORMALS: negative for patient oriented x3 GENERAL APPEARANCE: ill appearing HENMT: COMMON NORMALS: normocephalic and atraumatic HEAD & SCALP: normocephalic and atraumatic Eye: COMMON NORMALS: Equal, round and reactive pupils present and EOMs intact bilaterally PUPIL: Yes Equal, round and reactive pupils present Neck/C-Spine: COMMON NORMALS: full ROM and supple Chest: COMMONS NORMALS: normal inspection of the chest and normal palpation of entire chest wall Resp: COMMON NORMALS: normal respiratory effort, No retractions, No use of accessory muscles and clear to auscultation bilaterally AUSCULTATION: clear to auscultation bilaterally Cardio: COMMON NORMALS: regular rate, regular rhythm and No murmurs present (Cardio) RATE: regular rate RHYTHM: regular rhythm GI: COMMON NORMALS: Normal to inspection, nondistended, normoactive bowel sounds present, Soft to palpation, non-tender and no masses PALPATION: Yes Soft to palpation Extremity: COMMON NORMALS: normal to inspection and full ROM Neuro: COMMON NORMALS: negative for patient oriented x3 GAIT: Yes Unable to assess gait OTHER: Patient is able to lift his left arm and left leg against gravity. He has minimal movement of the right arm no movement of the right leg. Patient has no clear speech. Psych: COMMON NORMALS: negative for mental status grossly normal Skin: COMMON NORMALS: no rashes or lesions noted and no wounds GENERAL SKIN EXAM: no rashes or lesions noted Course Vital Signs: Vital signs: Vital Signs Temperature 98.0 F 02/15/21 20:40 Pulse Rate 52 L 02/15/21 22:46 Respiratory Rate 19 H 02/15/21 22:46 Blood Pressure 200/90 02/15/21 22:46 Pulse Oximetry 100 02/15/21 22:46 MDM - Neuro Symptoms/Deficit MDM Narrative: Medical decision making narrative: Patient presents with altered mental status weakness. Started determine if his weakness is actually new or from his old stroke. No history is really available from patient and his is not a regular story. He is quite confused and after talking to he is quite confused and weak from his baseline. His head CT and CTA showed no acute findings. He is not in any treatment window as his last known normal was yesterday. I spoke to the hospitalist will admit. Lab Data: Labs: Lab Results 02/15/21 02/15/21 02/15/21 Range/Units 20:45 20:56 20:59 WBC 8.5 (4.0-10.0) 10^3/ uL RBC 4.60 (4.1-5.3) 10^6/u L Hgb 15.0 (11.7-16.6) g/dL Hct 44.4 (42.0-52.0) % MCV 96.5 H (80-94) fL MCH 32.6 (28.0-34.0) pg MCHC 33.8 (30.0-36.0) g/dL RDW 13.1 (12.1-15.1) % Plt Count 187 (130-400) 10^3/c mm MPV 12.8 H (7.4-10.4) fL Neut % (Auto) 84.4 % Lymph % (Auto) 10.0 % Barbour % (Auto) 5.2 % Eos % (Auto) 0.0 % Baso % (Auto) 0.2 % Neut # (Auto) 7.20 (1.8-7.7) 10^3/u L Lymph # (Auto) 0.9 (0.8-4.8) 10^3/u L Barbour # (Auto) 0.4 (0.2-0.9) 10^3/u L Eos # (Auto) 0.0 (0.0-0.8) 10^3/u L Baso # (Auto) 0.0 (0.0-0.1) 10^3/u L Nucleated RBC % (a uto) 0 % Nucleated RBCs # 0.0 /100WBC PT (12.1-14.9) SECO NDS INR (0.8-1.2) Specimen Type Arterial Sample Site Radial, left ABG pH 7.40 (7.35-7.45) ABG pCO2 43.7 (35-45) mmHg ABG pO2 81.7 (80.0-100.0) mmH g ABG HCO3 26.7 H (22-26) mmol/L ABG Base Excess 1.4 (-2.0-2.0) mmol/ L Calderon Test Pos Hematocrit 43.9 (42-52) % O2 Delivery Device Room air FiO2 21.0 % Stationary Engineer Refrigeration ID Harkr Sodium (136-145) mmol/L Potassium (3.5-5.1) mmol/L Chloride (98-107) mmol/L Carbon Dioxide (22-29) mmol/L Anion Gap (5-19) BUN (8-23) mg/dL Creatinine (0.7-1.2) mg/dL GFR Calculation (90-130) mL/min Glucose (65-115) mg/dL POC Glucose 144 H (70-110) mg/dL Calculated Osmolal ity (285-295) mOsm/k g Calcium (8.5-10.5) mg/dL Total Bilirubin (0.15-1.2) mg/dL AST (0-40) U/L ALT (0-41) U/L Alkaline Phosphata se (40-130) IU/L Troponin T Baselin e (0-15) ng/L Total Protein (6.6-8.7) g/dL Albumin (3.5-5.2) g/dL Globulin (1.3-4.6) g/dL Urine Color (Yellow) Urine Appearance (CLEAR) Urine pH (5-7) Ur Specific Gravit y (1.005-1.030) Urine Protein (Negative) Urine Glucose (UA) (Normal) Urine Ketones (Negative) Urine Blood (Negative) Urine Nitrate (Negative) Urine Bilirubin (Negative) Urine Urobilinogen (Negative) mg/dL Ur Leukocyte Ranjana ase (Negative) Urine RBC (0-2) /hpf Urine WBC (0-5) /hpf Ur Squamous Epith Cells (0-5) /hpf Amorphous Sediment /hpf Urine Bacteria (NONE) /hpf 02/15/21 02/15/21 02/15/21 Range/Units 21:25 21:25 21:25 WBC (4.0-10.0) 10^3/ uL RBC (4.1-5.3) 10^6/u L Hgb (11.7-16.6) g/dL Hct (42.0-52.0) % MCV (80-94) fL MCH (28.0-34.0) pg MCHC (30.0-36.0) g/dL RDW (12.1-15.1) % Plt Count (130-400) 10^3/c mm MPV (7.4-10.4) fL Neut % (Auto) % Lymph % (Auto) % Barbour % (Auto) % Eos % (Auto) % Baso % (Auto) % Neut # (Auto) (1.8-7.7) 10^3/u L Lymph # (Auto) (0.8-4.8) 10^3/u L Barbour # (Auto) (0.2-0.9) 10^3/u L Eos # (Auto) (0.0-0.8) 10^3/u L Baso # (Auto) (0.0-0.1) 10^3/u L Nucleated RBC % (a uto) % Nucleated RBCs # /100WBC PT 14.60 (12.1-14.9) SECO NDS INR 1.11 (0.8-1.2) Specimen Type Sample Site ABG pH (7.35-7.45) ABG pCO2 (35-45) mmHg ABG pO2 (80.0-100.0) mmH g ABG HCO3 (22-26) mmol/L ABG Base Excess (-2.0-2.0) mmol/ L Calderon Test Hematocrit (42-52) % O2 Delivery Device FiO2 % Stationary Engineer Refrigeration ID Sodium 136 (136-145) mmol/L Potassium 3.4 L (3.5-5.1) mmol/L Chloride 97 L (98-107) mmol/L Carbon Dioxide 24 (22-29) mmol/L Anion Gap 18.4 (5-19) BUN 9 (8-23) mg/dL Creatinine 0.8 (0.7-1.2) mg/dL GFR Calculation 95.6 (90-130) mL/min Glucose 157 H (65-115) mg/dL POC Glucose (70-110) mg/dL Calculated Osmolal ity 284 L (285-295) mOsm/k g Calcium 9.2 (8.5-10.5) mg/dL Total Bilirubin 0.6 (0.15-1.2) mg/dL AST 11 (0-40) U/L ALT 14 (0-41) U/L Alkaline Phosphata se 85 (40-130) IU/L Troponin T Baselin e 31 H (0-15) ng/L Total Protein 7.3 (6.6-8.7) g/dL Albumin 4.4 (3.5-5.2) g/dL Globulin 2.9 (1.3-4.6) g/dL Urine Color (Yellow) Urine Appearance (CLEAR) Urine pH (5-7) Ur Specific Gravit y (1.005-1.030) Urine Protein (Negative) Urine Glucose (UA) (Normal) Urine Ketones (Negative) Urine Blood (Negative) Urine Nitrate (Negative) Urine Bilirubin (Negative) Urine Urobilinogen (Negative) mg/dL Ur Leukocyte Ranjana ase (Negative) Urine RBC (0-2) /hpf Urine WBC (0-5) /hpf Ur Squamous Epith Cells (0-5) /hpf Amorphous Sediment /hpf Urine Bacteria (NONE) /hpf 02/15/21 Range/Units 21:59 WBC (4.0-10.0) 10^3/ uL RBC (4.1-5.3) 10^6/u L Hgb (11.7-16.6) g/dL Hct (42.0-52.0) % MCV (80-94) fL MCH (28.0-34.0) pg MCHC (30.0-36.0) g/dL RDW (12.1-15.1) % Plt Count (130-400) 10^3/c mm MPV (7.4-10.4) fL Neut % (Auto) % Lymph % (Auto) % Barbour % (Auto) % Eos % (Auto) % Baso % (Auto) % Neut # (Auto) (1.8-7.7) 10^3/u L Lymph # (Auto) (0.8-4.8) 10^3/u L Barbour # (Auto) (0.2-0.9) 10^3/u L Eos # (Auto) (0.0-0.8) 10^3/u L Baso # (Auto) (0.0-0.1) 10^3/u L Nucleated RBC % (a uto) % Nucleated RBCs # /100WBC PT (12.1-14.9) SECO NDS INR (0.8-1.2) Specimen Type Sample Site ABG pH (7.35-7.45) ABG pCO2 (35-45) mmHg ABG pO2 (80.0-100.0) mmH g ABG HCO3 (22-26) mmol/L ABG Base Excess (-2.0-2.0) mmol/ L Calderon Test Hematocrit (42-52) % O2 Delivery Device FiO2 % Stationary Engineer Refrigeration ID Sodium (136-145) mmol/L Potassium (3.5-5.1) mmol/L Chloride (98-107) mmol/L Carbon Dioxide (22-29) mmol/L Anion Gap (5-19) BUN (8-23) mg/dL Creatinine (0.7-1.2) mg/dL GFR Calculation (90-130) mL/min Glucose (65-115) mg/dL POC Glucose (70-110) mg/dL Calculated Osmolal ity (285-295) mOsm/k g Calcium (8.5-10.5) mg/dL Total Bilirubin (0.15-1.2) mg/dL AST (0-40) U/L ALT (0-41) U/L Alkaline Phosphata se (40-130) IU/L Troponin T Baselin e (0-15) ng/L Total Protein (6.6-8.7) g/dL Albumin (3.5-5.2) g/dL Globulin (1.3-4.6) g/dL Urine Color Yellow (Yellow) Urine Appearance Clear (CLEAR) Urine pH 7 (5-7) Ur Specific Gravit y 1.010 (1.005-1.030) Urine Protein 1+ H (Negative) Urine Glucose (UA) Norm (Normal) Urine Ketones Negative (Negative) Urine Blood 3+ H (Negative) Urine Nitrate Negative (Negative) Urine Bilirubin Neg (Negative) Urine Urobilinogen Norm (Negative) mg/dL Ur Leukocyte Ranjana ase Negative (Negative) Urine RBC 15-25 H (0-2) /hpf Urine WBC 0-4 H (0-5) /hpf Ur Squamous Epith Cells 0-4 H (0-5) /hpf Amorphous Sediment 1+ /hpf Urine Bacteria 1+ H (NONE) /hpf Imaging Data^: CT Head: Radiologist's impression: [address] [place] [address] CT Scan Report Signed Patient: Kelvin Pressley Unit #: [id number] : 1950 Age/Sex: 70 / M ADM Date: 02/15/21 Loc: ER Room/Bed: Attending Dr: Ordering Provider/Ordering MD: Stuart Ordoñez MD Date of Service: 02/15/21 Procedure(s): CT head wo con* [id number] Accession Number(s): [id number] Report Number: [id number] PROCEDURE INFORMATION: Exam: CT Head Without Contrast Exam date and time: 02/15/2021 8:44 PM Age: 70 years old Clinical indication: Weakness, extremity; Patient HX: Right sided weakness and drift. Possible aphasia. ; Additional info: CVA TECHNIQUE: Imaging protocol: Computed tomography of the head without contrast. Radiation optimization: All CT scans at this facility use at least one of these dose optimization techniques: automated exposure control; mA and/or kV adjustment per patient size (includes targeted exams where dose is matched to clinical indication); or iterative reconstruction. Other technique: STROKE PROTOCOL was implemented. COMPARISON: CT head wo con* [id number] 05/18/2020 12:43 PM RADIATION DOSE METRICS: Total DLP (mGy-cm): 855.45 FINDINGS: Brain: Tiny chronic lacunar infarctions are present in the left thalamus and zeyad. Mild atrophy and mild white matter chronic microvascular changes are noted. No hemorrhage or evidence of acute infarction is seen. Cerebral ventricles: No ventriculomegaly. Bones/joints: Unremarkable. No acute fracture. Paranasal sinuses: Visualized sinuses are unremarkable. No fluid levels. Mastoid air cells: Visualized mastoid air cells are well aerated. Soft tissues: Unremarkable. CT/CT head wo con* [id number] IMPRESSION: No acute intracranial abnormality CXR: Radiologist's impression: [address] [address] XRay Report Signed Patient: Kelvin Pressley Unit #: [id number] : 1950 Age/Sex: 70 / M ADM Date: 02/15/21 Loc: ER Room/Bed: Attending Dr: Ordering Provider/Ordering MD: Stuart Ordoñez MD Date of Service: 02/15/21 Procedure(s): XR chest 1V portable [id number] Accession Number(s): [id number] Report Number: [id number] PROCEDURE INFORMATION: Exam: XR Chest Exam date and time: 02/15/2021 9:28 PM Age: 70 years old Clinical indication: Shortness of breath; Additional info: AMS TECHNIQUE: Imaging protocol: XR of the chest. Views: 1 view. COMPARISON: CR XR chest 1V portable [id number] 05/18/2020 1:23 PM FINDINGS: Lungs: The lungs are clear. Pleural spaces: Unremarkable. No pleural effusion. No pneumothorax. Heart/Mediastinum: Unremarkable. No cardiomegaly. Bones/joints: Unremarkable. XR/XR chest 1V portable [id number] IMPRESSION: No acute cardiopulmonary abnormality. Other CT: Radiologist's impression: [address] [place] [address] CT Scan Report Signed Patient: Kelvin Pressley Unit #: [id number] : 1950 Age/Sex: 70 / M ADM Date: 02/15/21 Loc: ER Room/Bed: Attending Dr: Ordering Provider/Ordering MD: Stuart Ordoñez MD Date of Service: 02/15/21 Procedure(s): CT angio headneck* [id number] Accession Number(s): [id number] Report Number: [id number] PROCEDURE INFORMATION: Exam: CT Angiography Head With Contrast Exam date and time: 02/15/2021 8:56 PM Age: 70 years old Clinical indication: Patient HX: Right sided weakness and drift. Possible aphasia. ; Additional info: CVA TECHNIQUE: Imaging protocol: Computed tomography angiography of the head with intravenous contrast. 3D rendering (Not supervised by radiologist): MIP and/or 3D reconstructed images were created by the technologist. Radiation optimization: All CT scans at this facility use at least one of these dose optimization techniques: automated exposure control; mA and/or kV adjustment per patient size (includes targeted exams where dose is matched to clinical indication); or iterative reconstruction. Contrast material: VISI 320; Contrast volume: 95 ml; Contrast route: INTRAVENOUS (IV); COMPARISON: CT angio headneck* [id number] 05/18/2020 1:16 PM RADIATION DOSE METRICS: Total DLP (mGy-cm): 2662.73 FINDINGS: ANTERIOR CIRCULATION: Right internal carotid artery: Unremarkable. Intracranial segment is patent with no significant stenosis. No aneurysm. Right middle cerebral artery: Unremarkable. No occlusion or significant stenosis. No aneurysm. Right anterior cerebral artery: Unremarkable. No occlusion or significant stenosis. No aneurysm. Left internal carotid artery: Mild stenosis of the proximal cavernous portion of the left ICA is appreciated. Left middle cerebral artery: Unremarkable. No occlusion or significant stenosis. No aneurysm. Left anterior cerebral artery: Unremarkable. No occlusion or significant stenosis. No aneurysm. POSTERIOR CIRCULATION: Right vertebral artery: Unremarkable. No occlusion or significant stenosis. No aneurysm. Left vertebral artery: Unremarkable. No occlusion or significant stenosis. No aneurysm. Basilar artery: Unremarkable. No occlusion or significant stenosis. No aneurysm. Right posterior cerebral artery: Unremarkable. No occlusion or significant stenosis. No aneurysm. Left posterior cerebral artery: Unremarkable. No occlusion or significant stenosis. No aneurysm. IMPRESSION: Mild stenosis of the proximal intracranial ICA. Otherwise, the intracranial arteries are patent. PROCEDURE INFORMATION: Exam: CT Angiography Neck With Contrast Exam date and time: 02/15/2021 8:56 PM Age: 70 years old Clinical indication: Patient HX: Right sided weakness and drift. Possible aphasia. ; Additional info: CVA TECHNIQUE: Imaging protocol: Computed tomography angiography of the neck with contrast. 3D rendering (Not supervised by radiologist): MIP and/or 3D reconstructed images were created by the technologist. Radiation optimization: All CT scans at this facility use at least one of these dose optimization techniques: automated exposure control; mA and/or kV adjustment per patient size (includes targeted exams where dose is matched to clinical indication); or iterative reconstruction. Contrast material: VISI 320; Contrast volume: 95 ml; Contrast route: INTRAVENOUS (IV); COMPARISON: CT angio headneck* [id number] 05/18/2020 1:16 PM RADIATION DOSE METRICS: Total DLP (mGy-cm): 2662.73 FINDINGS: Right common carotid artery: Noncalcified plaque causes mild stenosis of the mid to distal right common carotid artery and moderate stenosis of the right carotid bulb Right internal carotid artery: Moderate stenosis of the right ICA origin is noted. Right external carotid artery: No occlusion or stenosis of the origin. Right vertebral artery: No stenosis. No dissection or occlusion. Left common carotid artery: Noncalcified plaque causes diffuse [id number] stenosis of the entire left common carotid artery. Left internal carotid artery: Mild stenosis of the left ICA origin is appreciated. Left external carotid artery: No occlusion or stenosis of the origin. Left vertebral artery: No stenosis. No dissection or occlusion. Subclavian arteries: Severe stenosis of the proximal left subclavian artery is appreciated. Moderate to severe stenosis of the right subclavian artery origin is also seen. Bones/joints: Fopw-su-[id number] degenerative changes are observed in the mid to lower cervical spine. No acute fracture. Spinal alignment is normal. Soft tissues: Normal. No significant soft tissue swelling. CT/CT angio headneck* [id number] IMPRESSION: 1. Poor-dw-ozscsgwv stenosis of the entire left common carotid artery. 2. Mild stenosis of the mid to distal right common carotid artery and moderate stenosis of the right carotid bulb. 3. Moderate stenosis of the right ICA origin. 4. Mild stenosis of the left ICA origin. 5. Severe left and moderate to severe right subclavian artery stenoses EKG Data^: EKG 1: Attestation: I personally reviewed and interpreted this EKG as follows: EKG interpretation date: 02/15/21 EKG interpretation time: 20:58 Interpretation: sinus debora hr [address] or t wave abnormalities qrs 90 qt 456 Discharge Plan Discharge Patient Disposition: Admitted As Inpatient Admit Provider: Corrine Sarkar Clinical Impression: Cerebrovascular accident Qualifiers: CVA mechanism: unspecified Qualified Code(s): I63.9 - Cerebral infarction, unspecified Altered mental status Qualifiers: Altered mental status type: unspecified Qualified Code(s): R41.82 - Altered mental status, unspecified Condition: Stable Coding Level of Care Code ED [employer] for [facility] Fwd Exam Comprehensive
[2021-02-15] MEDS: labetalol 5 mg/mL SDV 20mL 10 MG IVP ×2 (21:16→22:43)
[2021-02-15 21:38] LABS: INR 1.11 (0.8-1.2)
[2021-02-15 21:43] VITALS: PULSE 45; RESP 15; O2SAT 96
[2021-02-15 21:46] VITALS: BP 195/93; PULSE 45; RESP 15; O2SAT 96
[2021-02-15 21:49] LABS: Troponin(5th) Baseline 31 ng/L (0-15)
[2021-02-15 21:51] LABS: Alanine Aminotransferase 14 U/L (0-41); Albumin Level 4.4 g/dL (3.5-5.2); Alkaline Phosphatase 85 IU/L (40-130); Anion Gap 18.4 (5-19); Aspartate Amino Transferase 11 U/L (0-40); Blood Urea Nitrogen 9 mg/dL (8-23); Calcium 9.2 mg/dL (8.5-10.5); Carbon Dioxide 24 mmol/L (22-29); Chloride 97 mmol/L (98-107); Globulin 2.9 g/dL (1.3-4.6); Glomerular Filtration Rate 95.6 mL/min (90-130); Glucose 157 mg/dL (65-115); Osmolality Calculated 284 mOsm/kg (285-295); Potassium 3.4 mmol/L (3.5-5.1); Sodium 136 mmol/L (136-145); Total Bilirubin 0.6 mg/dL (0.15-1.2); Total Protein 7.3 g/dL (6.6-8.7)
[2021-02-15 22:25] LABS: Add Urine Culture? Yes; Add Urine Microscopic? YES; Amorphous Sediment Urine 1+ /hpf; Bacteria Urine 1+ /hpf; Bilirubin Urine Neg (Negative); Blood Urine 3+ (Negative); Glucose Urine UA Norm (Normal); Ketones Urine Negative (Negative); Leukocyte Esterase Urine Negative (Negative); Nitrate Urine Negative (Negative); Protein Urine 1+ (Negative); RBC Urine 15-25 /hpf (0-2); Squamous Epithelial Cell Urine 0-4 /hpf (0-5); Urine Appearance Clear (CLEAR); Urine Color Yellow (Yellow); Urobilinogen Urine Norm (Negative); WBC Urine 0-4 /hpf (0-5); pH Urine 7 (5-7)
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
[2021-02-15 22:46] VITALS: BP 200/90; PULSE 52; RESP 19; O2SAT 100
[2021-02-15 23:20] LABS: Troponin 5 2HR 35.06 ng/L (0-15); Troponin 5 2HR Delta 4.06 ABS# (0-10)
[2021-02-16] VITALS (7 sets, daily range): BP systolic 125–185; BP diastolic 74–99; PULSE 43–58; RESP 16–18; TEMP 36.8–37.2; O2SAT 94–97
[2021-02-16] MEDS: enoxaparin 40 mg/0.4 mL Syringe SUBCUT (01:01)
[2021-02-16] MEDS: lisinopril 20 mg Tablet 40 MG PO (10:07)
[2021-02-16] MEDS: amlodipine 10 mg Tablet PO (10:07)
[2021-02-16] MEDS: tamsulosin 0.4 mg Capsule 0.8 MG PO (10:08)
[2021-02-16] MEDS: aspirin 81 mg EC Tablet PO (10:08)
[2021-02-16] MEDS: clopidogrel 75 mg Tablet PO (10:08)
--- NOTE | 2021-02-16 20:13 | P.PN_ITS ---
Subjective Subjective: Interval history: He is intermittently feeling dizzy. Had an episode earlier. Not currently. Reports right side is feeling weak. Reports chronic dysarthria, mild to moderate aphasia. Denies chest pain or pressure. No trouble breathing. Appetite is okay. Reports continues to smoke. Reports is aware that smoking leads to stroke among other complications. Reports has not been taking aspirin, when asked why states that he has not gotten into the habit, although knows that he should be taking it. Denies nicotine craving at this time. Declines nicotine patch or gum. Vitals/I&O/Wt Last Vital Signs Temp 98.9 F 02/16/21 19:35 Pulse 58 L 02/16/21 19:35 Resp 18 02/16/21 19:35 BP 125/76 02/16/21 19:35 Pulse Ox 95 02/16/21 19:35 02/16/21 02/16/21 02/16/21 06:59 14:59 22:59 Intake Total 0 / 0 240 / 240 240 / 480 Output Total 275 / 275 Balance 0 / 0 240 / 240 -35 / 205 Weight last 48 hrs Weight 96.162 kg Physical Exam Const: COMMON NORMALS: no acute distress and patient oriented x3 GENERAL APPEARANCE: cooperative ORIENTATION/CONSCIOUSNESS: Yes awake OTHER: Laying in bed diagonally. HENMT: COMMON NORMALS: oropharynx normal Neck/C-Spine: COMMON NORMALS: no JVD Resp: COMMON NORMALS: normal respiratory effort and clear to auscultation bilaterally AUSCULTATION: clear to auscultation bilaterally Cardio: COMMON NORMALS: no JVD, regular rhythm, S1 normal heart sound present, S2 normal heart sound present and No murmurs present (Cardio) RHYTHM: regular rhythm HEART SOUNDS: S1 normal heart sound present and S2 normal heart sound present GI: COMMON NORMALS: Normal to inspection, nondistended, normoactive bowel sounds present, Soft to palpation and non-tender PALPATION: Yes Soft to palpation Extremity: COMMON NORMALS: no joint enlargement and no pedal edema Neuro: COMMON NORMALS: patient oriented x3 and moves all extremities Skin: COMMON NORMALS: no rashes or lesions noted GENERAL SKIN EXAM: no rashes or lesions noted Urinary Catheter Management^: Adorno: Cath Placed During This Visit: yes Reason for Continuing Indwelling Catheter: Acute Urinary Retention or Obstruction Urinary Catheter Date of Insertion: 02/15/21 Urinary Catheter Time of Insertion: 22:00 Data : 02/15/21 20:45 02/15/21 21:25 A&P Assessment and plan (1) Dizzy spells: He reports dizziness leading to him falling out of the truck. Reports intermittent episodes of dizziness again here in the hospital. Concern is that these episodes may be linked to new ischemia, possibly cerebellar or brainstem. At this time we will continue monitoring in the hospital due to danger these types of CVA may present. Monitor blood pressure. Avoid hypotension. Gentle IV hydration if blood pressure is becoming low. Alternatively also possible subclavian steal? Noted severe left and moderate to severe right subclavian artery stenosis. Continue PAD medications. Encourage smoking cessation, although he has not been willing to quit so far. Assess arterial duplex upper extremities. Status: Acute (2) Fall: PT OT. Recurrent CVA, poor balance, risk of recurrent falls, would benefit from rehabilitation. Discharge planning working with him and family. 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 Continue statin. Continue to reinforce importance of smoking cessation. Blood pressure control. Status: Acute (4) Non compliance w medication regimen: Reports he is not taking aspirin at home due to not getting into the habit. Discussed with him importance of aspirin in preventing additional CVA. He verbalized understanding. Status: Chronic (5) Nicotine dependence, cigarettes, uncomplicated: We spent 5 minutes discussing smoking cessation. He has not been willing to quit 4. states he understands importance of smoking in relation to recurrent CVA and the absolute need to stop. Declines nicotine patches or gum. Status: Chronic (6) Hypertension: Resistant hypertension. At this time continues on lisinopril, Mod[place], tamsulosin. Monitor blood pressures. Avoid overly rapid decline. Avoid medications that may slow his heart rate as he is at baseline bradycardic which appears to be chronic. Status: Acute (7) Left acute arterial ischemic stroke, MCA (middle cerebral artery): Status: Acute Additional A&P Information Dysarthria, dysphagia: Speech therapy evaluation BPH: Complaining of urinary tension will do bladder scan as needed, continue tamsulosin Full code DVT prophylaxis Lovenox Attestations Medical Necessity Statement*: Admission of over 2 midnights is needed for assessment and management of recurrent CVA, dizzy spells, possible recent cerebe llar or brainstem CVA, poorly controlled hypertension in a gentleman who is a continued active smoker, with poor adherence to recommended medical therapy. Disposition planning and arrangement. Coding Level of Care Code Acute Predatory Animal Trapper for Chg Fwd Diagnoses Dizzy spells R42 Fall W19.XXXA 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 I69.30 Non compliance w medication regimen Z91.14 Nicotine dependence, cigarettes, uncomplicated F17.210 Hypertension I10 Left acute arterial ischemic stroke, MCA (middle cerebral artery) I63.512
[2021-02-16] MEDS: atorvastatin 40 mg Tablet 80 MG PO (21:26)
[2021-02-17] VITALS: BP 110/67; PULSE 52; RESP 16; TEMP 37; O2SAT 98
[2021-02-17] MEDS: enoxaparin 40 mg/0.4 mL Syringe SUBCUT (01:42)
[2021-02-17 03:41] VITALS: BP 100/55; PULSE 54; RESP 18; TEMP 36.6; O2SAT 99
[2021-02-17 07:15] LABS: Basophils % 0.4 %; Eosinophils % 0.3 %; Hematocrit 42.1 % (42.0-52.0); Hemoglobin 14.2 g/dL (11.7-16.6); Lymphocytes # 1.9 10^3/uL (0.8-4.8); Lymphocytes % 24.4 %; Mean Corpuscular HGB Conc 33.7 g/dL (30.0-36.0); Mean Corpuscular Hemoglobin 32.8 pg (28.0-34.0); Mean Corpuscular Volume 97.2 fL (80-94); Mean Platelet Volume 12.9 fL (7.4-10.4); Monocytes # 0.7 10^3/uL (0.2-0.9); Monocytes % 8.8 %; Neutrophils # 5.16 10^3/uL (1.8-7.7); Neutrophils % 65.8 %; Nucleated Red Blood Cells % 0 %; Platelet Count 166 10^3/cmm (130-400); Red Blood Count 4.33 10^6/uL (4.1-5.3); Red Cell Distribution Width 13.2 % (12.1-15.1); White Blood Count 7.8 10^3/uL (4.0-10.0)
[2021-02-17 07:29] VITALS: BP 124/63; PULSE 48; RESP 18; TEMP 36.7; O2SAT 97
[2021-02-17 07:34] LABS: Blood Urea Nitrogen 18 mg/dL (8-23); Calcium 8.9 mg/dL (8.5-10.5); Carbon Dioxide 28 mmol/L (22-29); Chloride 101 mmol/L (98-107); Glomerular Filtration Rate 83.4 mL/min (90-130); Glucose 92 mg/dL (65-115); Osmolality Calculated 290 mOsm/kg (285-295); Sodium 139 mmol/L (136-145)
[2021-02-17] MEDS: aspirin 81 mg EC Tablet PO (08:08)
[2021-02-17] MEDS: clopidogrel 75 mg Tablet PO (08:09)
[2021-02-17] MEDS: amlodipine 10 mg Tablet PO (08:09)
[2021-02-17] MEDS: tamsulosin 0.4 mg Capsule 0.8 MG PO (08:09)
[2021-02-17] MEDS: lisinopril 20 mg Tablet 40 MG PO (08:11)
[2021-02-17 08:13] LABS: Anion Gap 13.3 (5-19); Potassium 3.3 mmol/L (3.5-5.1)
--- NOTE | 2021-02-17 10:37 | PC.CHAP ---
Pastoral Care Encounter/Spiritual Assessment Type of Contact [] Declined reproducer visit [] Patient/Family/Request visit [] Outpatient visit [] Follow-up visit [] Physician referral [] Code/Alert [x] Routine visit [] Staff referral [] Actively dying [] Patient sleeping [] Family support [] [] Out of room [] Palliative care [] [] Receiving care in room [] Pre-surgical visit [] Trauma [] Long length of stay [] ICU visit [] Other: Relational/Emotional Strength [x] Patient feels connected with others/family/visitors/staff [] Distress [] Loneliness/isolation [] Abandonment Spirituality of Patient [] Person of Sarah [] Attends Scientology of their Sarah [] Believes in Prayer [] Reads Bible or Tenriism materials [x] There are Spiritual issues to be addressed Legislative Assistant Interventions [] Prayer [x] Active listening [x] Non-anxious presence [x] Spiritual/emotional support [] Crisis/trauma care [] Spiritual counseling [] Bereavement support [] Provided bereavement packet [] Provided Bible/devotional materials [] Provided toy/stuffed animal, coloring book to patient or family member [] Provided Communion [] Anointing/Wilson [] Salvation [x] Completed spiritual assessment [] Other: Impact on Illness or Injury [] Angry [] Fearful [] Anxious [] Often cries [] Exhaustion [] Unable to work [] Unable to attend jehovah's witness [] Unable to walk/stand [] Unable to read [] Unable to drive [] Unable to eat/drink [] Unable to sleep [] Unable to be with family [] Patient intubated [] Other: Summary Pt not very open to a visit. Legislative Assistant was able to determine he has outside contacts and support. Time spent with patient 5m
[2021-02-17 11:34] VITALS: BP 151/72; PULSE 46; RESP 18; TEMP 37.1; O2SAT 99
[2021-02-17 15:30] VITALS: BP 139/69; PULSE 46; RESP 17; TEMP 37.2; O2SAT 97
--- NOTE | 2021-02-17 19:10 | PC.NURSE ---
Report to Yarely HERNANDEZ at this time.
--- NOTE | 2021-02-17 19:32 | PM.PN ---
Subjective Subjective: Interval history: Today he feels he is improving. Strength on right side is getting little bit better. Denies new changes in his vision, speech, sensation. Denies any additional episodes of dizziness. Vitals/I&O/Wt Last Vital Signs Temp 99.0 F 02/17/21 15:30 Pulse 46 L 02/17/21 15:30 Resp 17 02/17/21 15:30 BP 139/69 02/17/21 15:30 Pulse Ox 97 02/17/21 15:30 02/17/21 02/17/21 02/17/21 06:59 14:59 22:59 Intake Total 240 / 240 120 / 360 Output Total 50 / 325 Balance -50 / 155 240 / 240 120 / 360 Weight last 48 hrs Weight 96.162 kg Physical Exam Const: COMMON NORMALS: no acute distress and patient oriented x3 GENERAL APPEARANCE: cooperative ORIENTATION/CONSCIOUSNESS: Yes awake OTHER: Sitting up in bed. HENMT: COMMON NORMALS: oropharynx normal Neck/C-Spine: COMMON NORMALS: no meningeal signs and no JVD Resp: COMMON NORMALS: normal respiratory effort and clear to auscultation bilaterally AUSCULTATION: clear to auscultation bilaterally Cardio: COMMON NORMALS: no JVD, regular rhythm, S1 normal heart sound present, S2 normal heart sound present and No murmurs present (Cardio) RHYTHM: regular rhythm HEART SOUNDS: S1 normal heart sound present and S2 normal heart sound present GI: COMMON NORMALS: Normal to inspection, nondistended, normoactive bowel sounds present, Soft to palpation and non-tender PALPATION: Yes Soft to palpation Extremity: COMMON NORMALS: no joint enlargement and no pedal edema Neuro: COMMON NORMALS: patient oriented x3 and moves all extremities MENINGEAL SIGNS: Yes no meningeal signs COORDINATION/BALANCE: [id number] test normal (Although somewhat sluggish) SPEECH: abnormal speech Details: slurred MOTOR EXAM: Pronator motor function present (RUE) and Other motor observations present (Right upper extremity with improvement in strength today after about 3+-4) COORDINATION: [id number] test normal (Although somewhat sluggish) OTHER: Visual oliva full to confrontation. No trouble tracking. Skin: COMMON NORMALS: no rashes or lesions noted GENERAL SKIN EXAM: no rashes or lesions noted Urinary Catheter Management^: Adorno: Cath Placed During This Visit: yes Reason for Continuing Indwelling Catheter: Acute Urinary Retention or Obstruction Urinary Catheter Date of Insertion: 02/15/21 Urinary Catheter Time of Insertion: 22:00 Data : 02/17/21 07:01 02/17/21 07:01 Micro: Microbiology 02/15/21 21:59 Urine Culture - Preliminary Urine Catheterized A&P Assessment and plan (1) Dizzy spells: Blood pressure appears to be improving. Dizziness also appears to be improving. Today he is feeling stronger. Does appear to have recovery of strength on the right side. Dysarthria is little bit better as well. We also assess duplex upper extremities to assess for possible subclavian steal. This does not appear to be observed. Due to decreased endurance, poor balance, poor safety awareness, poor trunk/head control would benefit from continued rehabilitation. Discharge planning working on placement to SNF. If continues to do well may be able to discharge tomorrow. Would set him up with monitor for bradycardia. Status: Acute (2) Bradycardia: Sinus bradycardia. Appears chronic, in 40s-50s. However, with dizzy spells, recurrent CVA would benefit from extended monitoring. Status: Acute (3) Fall: PT OT. Recurrent CVA, poor balance, risk of recurrent falls, would benefit from rehabilitation. Discharge planning working with him and family. 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 Continue statin. Continue to reinforce importance of smoking cessation. Blood pressure control. Possible recent CVA. Symptoms appear to be gradually improving, with slowly regaining some strength on the right side. Improvement in dysarthria. Status: Acute (5) Non compliance w medication regimen: Reports he is not taking aspirin at home due to not getting into the habit. Discussed with him importance of aspirin in preventing additional CVA. He verbalized understanding. Status: Chronic (6) Nicotine dependence, cigarettes, uncomplicated: Continue to encourage cessation. Declines nicotine patches or gum. Status: Chronic (7) Hypertension: Blood pressure with improvement. Continue current medications. Continue to optimize. Resistant hypertension. At this time continues on lisinopril, Amlodipine, tamsulosin. Monitor blood pressures. Avoid overly rapid decline. Avoid medications that may slow his heart rate as he is at baseline bradycardic which appears to be chronic. Status: Acute (8) Left acute arterial ischemic stroke, MCA (middle cerebral artery): Status: Acute Additional A&P Information Dysarthria, dysphagia: Speech therapy BPH: Complaining of urinary tension will do bladder scan as needed, continue tamsulosin Full code DVT prophylaxis Lovenox Attestations Medical Necessity Statement*: Continue admission for assessment management of recurrent falls, dizziness, recurrent CVA, in a gentleman who is a continued active smoker, with poor adherence to medications, optimization of hypertension. Arrangements for rehabilitation at SNF. 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
[2021-02-17 20:00] VITALS: BP 151/75; PULSE 47; RESP 20; TEMP 36.6; O2SAT 98
--- NOTE | 2021-02-17 20:28 | USR_ITS ---
PROCEDURE INFORMATION: Exam: US Duplex Upper Extremity Arteries Exam date and time: 02/17/2021 12:06 PM Age: 70 years old Clinical indication: Abnormal findings; Abnormal imaging study of limbs; Subclavian arteries; Cta; Additional info: Possible subclavian steal, recurrent neuro symptoms TECHNIQUE: Imaging protocol: Real-time ultrasound scan of the arteries of the bilateral upper extremities with 2-D wood scale, color Doppler flow and spectral waveform analysis. COMPARISON: No relevant prior studies available. FINDINGS: Right subclavian artery: No occlusion or significant stenosis. Normal waveform. Right axillary artery: No occlusion or significant stenosis. Biphasic waveform. Right brachial artery: No occlusion or significant stenosis. Normal waveform. Right radial artery: No occlusion or significant stenosis. Normal waveform. Right ulnar artery: No occlusion or significant stenosis. Biphasic waveform. Left subclavian artery: There is proximal stenosis. Monophasic waveform. There is spectral broadening with elevated velocity of 313 cm/s. Left axillary artery: No occlusion or significant stenosis. Biphasic waveform. Left brachial artery: No occlusion or significant stenosis. Normal waveform. Left radial artery: No occlusion or significant stenosis. Normal waveform. Left ulnar artery: No occlusion or significant stenosis. Normal waveform. Other arteries: Bilateral vertebral arteries are patent with antegrade flow. US/[place] [id number] IMPRESSION: 1. No findings of subclavian steal. Bilateral vertebral arteries are patent with antegrade flow. 2. There is stenosis of the proximal left subclavian artery.
[2021-02-17] MEDS: atorvastatin 40 mg Tablet 80 MG PO (20:33)
[2021-02-18] VITALS: BP 118/75; PULSE 50; RESP 20; TEMP 36.4; O2SAT 98
[2021-02-18] MEDS: enoxaparin 40 mg/0.4 mL Syringe SUBCUT (01:56)
[2021-02-18 04:00] VITALS: BP 123/72; PULSE 43; RESP 20; TEMP 36.6; O2SAT 99
[2021-02-18 05:45] LABS: Basophils % 0.4 %; Eosinophils # 0.1 10^3/uL (0.0-0.8); Eosinophils % 0.7 %; Hematocrit 41.6 % (42.0-52.0); Lymphocytes # 1.8 10^3/uL (0.8-4.8); Lymphocytes % 25.4 %; Mean Corpuscular HGB Conc 33.7 g/dL (30.0-36.0); Mean Corpuscular Hemoglobin 32.3 pg (28.0-34.0); Mean Corpuscular Volume 96.1 fL (80-94); Mean Platelet Volume 12.9 fL (7.4-10.4); Monocytes # 0.7 10^3/uL (0.2-0.9); Monocytes % 9.6 %; Neutrophils # 4.48 10^3/uL (1.8-7.7); Neutrophils % 63.6 %; Nucleated Red Blood Cells % 0 %; Platelet Count 159 10^3/cmm (130-400); Red Blood Count 4.33 10^6/uL (4.1-5.3); Red Cell Distribution Width 12.9 % (12.1-15.1); White Blood Count 7.1 10^3/uL (4.0-10.0)
[2021-02-18 06:08] LABS: Anion Gap 12.4 (5-19); Blood Urea Nitrogen 20 mg/dL (8-23); Calcium 8.7 mg/dL (8.5-10.5); Carbon Dioxide 27 mmol/L (22-29); Chloride 102 mmol/L (98-107); Glomerular Filtration Rate 83.4 mL/min (90-130); Glucose 91 mg/dL (65-115); Osmolality Calculated 288 mOsm/kg (285-295); Potassium 3.4 mmol/L (3.5-5.1); Sodium 138 mmol/L (136-145)
[2021-02-18 07:42] VITALS: BP 120/77; PULSE 55; RESP 18; TEMP 36.7; O2SAT 98
[2021-02-18] MEDS: lisinopril 20 mg Tablet 40 MG PO (07:54)
[2021-02-18] MEDS: clopidogrel 75 mg Tablet PO (07:54)
[2021-02-18] MEDS: aspirin 81 mg EC Tablet PO (07:54)
[2021-02-18] MEDS: amlodipine 10 mg Tablet PO (07:54)
[2021-02-18] MEDS: tamsulosin 0.4 mg Capsule 0.8 MG PO (07:54)
--- NOTE | 2021-02-18 11:30 | PC.NURSE ---
Patient's Adorno Catheter removed at this time. Patient tolerated well. No need voiced at this time.
[2021-02-18 11:36] VITALS: BP 142/69; PULSE 55; RESP 18; TEMP 36.7; O2SAT 99
--- NOTE | 2021-02-18 12:27 | PC.NURSE ---
Patient's daughter states that any of the doctor's or psych social worker can call her at any time. She would like psych social worker to call her and patient's physical to call her. she is concerned about patient going home and what will happen after Home Health because patient is non-compliant with taking care of himself at home and his has her own health issues. A message sent to Dr. James and psych social worker.
--- NOTE | 2021-02-18 15:25 | PM.PN ---
Subjective Subjective: Interval history: Hospital course, labs and vitals appreciated. On examination patient lying comfortably in bed. Mildly distressed for discharge planning. States there is no way that he is going to SNF. States he is feeling little better. States weakness seems to have improved. Denies new changes in his vision, speech, sensation. Denies any additional episodes of dizziness. Patient states he has been dealing with weakness since his stroke 8 years ago and the weakness has not worsened over the course of years. He has had home health in the past and is agreeable for the same. Vitals/I&O/Wt Last Vital Signs Temp 98.0 F 02/18/21 11:36 Pulse 55 L 02/18/21 11:36 Resp 18 02/18/21 11:36 BP 142/69 02/18/21 11:36 Pulse Ox 99 02/18/21 11:36 02/18/21 02/18/21 02/18/21 06:59 14:59 22:59 Intake Total 200 / 560 600 / 600 Balance 200 / 560 600 / 600 Physical Exam Const: COMMON NORMALS: no acute distress and patient oriented x3 GENERAL APPEARANCE: cooperative ORIENTATION/CONSCIOUSNESS: Yes awake OTHER: Sitting up in bed. HENMT: COMMON NORMALS: oropharynx normal Neck/C-Spine: COMMON NORMALS: no meningeal signs and no JVD Resp: COMMON NORMALS: normal respiratory effort and clear to auscultation bilaterally AUSCULTATION: clear to auscultation bilaterally Cardio: COMMON NORMALS: no JVD, regular rhythm, S1 normal heart sound present, S2 normal heart sound present and No murmurs present (Cardio) RHYTHM: regular rhythm HEART SOUNDS: S1 normal heart sound present and S2 normal heart sound present GI: COMMON NORMALS: Normal to inspection, nondistended, normoactive bowel sounds present, Soft to palpation and non-tender PALPATION: Yes Soft to palpation Extremity: COMMON NORMALS: no joint enlargement and no pedal edema Neuro: COMMON NORMALS: patient oriented x3 and moves all extremities MENINGEAL SIGNS: Yes no meningeal signs COORDINATION/BALANCE: porhnj-ou-wdcd test normal (Although somewhat sluggish) SPEECH: abnormal speech Details: slurred MOTOR EXAM: Pronator motor function present (RUE) and Other motor observations present (Right upper extremity with improvement in strength today after about 3+-4) COORDINATION: dedsdx-vz-gnjm test normal (Although somewhat sluggish) OTHER: Visual oliva full to confrontation. No trouble tracking. Skin: COMMON NORMALS: no rashes or lesions noted GENERAL SKIN EXAM: no rashes or lesions noted Urinary Catheter Management^: Adorno: Cath Placed During This Visit: yes, but has since been removed by the nurse Reason for Continuing Indwelling Catheter: Decision to DC Catheter Urinary Catheter Date of Insertion: 02/15/21 Urinary Catheter Time of Insertion: 22:00 Date Urinary Catheter Removed: 02/18/21 Time Urinary Catheter Discontinued: 11:30 Data : 02/18/21 05:04 02/18/21 05:04 Micro: Microbiology 02/15/21 21:59 Urine Culture - Preliminary Urine Catheterized Staphylococcus sp coag neg A&P Assessment and plan (1) Dizzy spells: Blood pressure appears to be improving. Dizziness also appears to be improving. Today he is feeling stronger. Does appear to have recovery of strength on the right side. Dysarthria is little bit better as well. We also assess duplex upper extremities to assess for possible subclavian steal. This does not appear to be observed. Due to decreased endurance, poor balance, poor safety awareness, poor trunk/head control would benefit from continued rehabilitation. But patient is refusing to go to SNF anywhere after multiple attempts is adamant on going home. We will try to arrange home health. Care discussed with care management. Would set him up with monitor for bradycardia. Status: Acute (2) Bradycardia: Sinus bradycardia. Appears chronic, in 40s-50s. However, with dizzy spells, recurrent CVA would benefit from extended monitoring. Status: Acute (3) Fall: PT OT. Recurrent CVA, poor balance, risk of recurrent falls, would benefit from rehabilitation. Discharge planning working with him and family. 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 Continue statin. Continue to reinforce importance of smoking cessation. Blood pressure control. Possible recent CVA. Symptoms appear to be gradually improving, with slowly regaining some strength on the right side. Improvement in dysarthria. Status: Acute (5) Non compliance w medication regimen: Reports he is not taking aspirin at home due to not getting into the habit. Discussed with him importance of aspirin in preventing additional CVA. He verbalized understanding. Status: Chronic (6) Nicotine dependence, cigarettes, uncomplicated: Continue to encourage cessation. Declines nicotine patches or gum. Status: Chronic (7) Hypertension: Blood pressure with improvement. Continue current medications. Continue to optimize. Resistant hypertension. At this time continues on lisinopril, Amlodipine, tamsulosin. Monitor blood pressures. Avoid overly rapid decline. Avoid medications that may slow his heart rate as he is at baseline bradycardic which appears to be chronic. Status: Acute (8) Left acute arterial ischemic stroke, MCA (middle cerebral artery): Status: Acute Additional A&P Information Dysarthria, dysphagia: Speech therapy BPH: Complaining of urinary tension will do bladder scan as needed, continue tamsulosin Full code DVT prophylaxis Lovenox Discharge planning: Discussed in detail with patient regarding possible need of SNF for all the above reasons. Patient is AOx3 and continues to decline SNF placement though is agreeable to home health. Patient's care discussed with his daughter over the phone who lives in [place]. All the questions were answered. We did discuss that patient is AOx3 and is capable of making his own decisions and for now is adamant of not going to SNF though is agreeable to home health. Daughter states she would try to talk to her father again for possible SNF placement if not then she will try to speak to one of his friends for more monitored settings at home. Daughter is agreeable for home health as well. Attestations Medical Necessity Statement*: Patient requires further hospitalization for management of dysarthria because of chronic CVA while safe discharge planning is sought. Time Spent in Patient Care: Greater than 35 minutes (>than 50% of time spent in counselling and/or direct pt care on unit). Coding Level of Care Code Acute Pad Making Machine Operator for Shai Valenzuelad Diagnoses Dizzy spells R42 Bradycardia R00.1 Fall W19.XXXA 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 I69.30 Non compliance w medication regimen Z91.14 Nicotine dependence, cigarettes, uncomplicated F17.210 Hypertension I10 Left acute arterial ischemic stroke, MCA (middle cerebral artery) I63.512
[2021-02-18 15:31] VITALS: BP 171/62; PULSE 51; RESP 18; TEMP 36.7; O2SAT 99
--- NOTE | 2021-02-18 18:58 | PC.NURSE ---
Report to Yarely Soto LPN.
[2021-02-18 19:58] VITALS: BP 185/74; PULSE 51; RESP 18; TEMP 36.8; O2SAT 99
[2021-02-18] MEDS: atorvastatin 40 mg Tablet 80 MG PO (20:48)
[2021-02-19] VITALS: BP 164/86; PULSE 42; RESP 18; TEMP 36.9; O2SAT 96
[2021-02-19] MEDS: enoxaparin 40 mg/0.4 mL Syringe SUBCUT (01:35)
[2021-02-19 03:33] VITALS: BP 166/89; PULSE 60; RESP 18; TEMP 36.9; O2SAT 98
[2021-02-19 06:50] LABS: Basophils % 0.6 %; Eosinophils # 0.1 10^3/uL (0.0-0.8); Eosinophils % 1.6 %; Hematocrit 40.5 % (42.0-52.0); Hemoglobin 13.8 g/dL (11.7-16.6); Lymphocytes # 1.6 10^3/uL (0.8-4.8); Lymphocytes % 25.6 %; Mean Corpuscular HGB Conc 34.1 g/dL (30.0-36.0); Mean Corpuscular Hemoglobin 32.5 pg (28.0-34.0); Mean Corpuscular Volume 95.3 fL (80-94); Mean Platelet Volume 13.2 fL (7.4-10.4); Monocytes # 0.6 10^3/uL (0.2-0.9); Monocytes % 9.9 %; Neutrophils # 3.83 10^3/uL (1.8-7.7); Neutrophils % 62.1 %; Nucleated Red Blood Cells % 0 %; Platelet Count 164 10^3/cmm (130-400); Red Blood Count 4.25 10^6/uL (4.1-5.3); Red Cell Distribution Width 12.8 % (12.1-15.1); White Blood Count 6.2 10^3/uL (4.0-10.0)
[2021-02-19 07:09] LABS: Anion Gap 11.2 (5-19); Blood Urea Nitrogen 18 mg/dL (8-23); Calcium 8.9 mg/dL (8.5-10.5); Carbon Dioxide 28 mmol/L (22-29); Chloride 102 mmol/L (98-107); Glomerular Filtration Rate 95.6 mL/min (90-130); Glucose 83 mg/dL (65-115); Osmolality Calculated 287 mOsm/kg (285-295); Potassium 3.2 mmol/L (3.5-5.1); Sodium 138 mmol/L (136-145)
[2021-02-19 08:00] VITALS: BP 136/73; PULSE 54; RESP 17; TEMP 36.8; O2SAT 95
[2021-02-19] MEDS: lisinopril 20 mg Tablet 40 MG PO (08:10)
[2021-02-19] MEDS: clopidogrel 75 mg Tablet PO (08:10)
[2021-02-19] MEDS: tamsulosin 0.4 mg Capsule 0.8 MG PO (08:10)
[2021-02-19] MEDS: amlodipine 10 mg Tablet PO (08:10)
[2021-02-19] MEDS: aspirin 81 mg EC Tablet PO (08:10)
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
[2021-02-19 12:00] VITALS: BP 140/81; PULSE 62; RESP 18; TEMP 37; O2SAT 98
--- NOTE | 2021-02-19 12:40 | PC.NURSE ---
Patient was unable to sign his discharge papers because he can no longer sign his name becasue of his stroke. Patient made an X on the signature line and was witnessed by this RN and rTisha HAY
--- NOTE | 2021-02-19 12:40 | PC.NURSE ---
Patient unable to sign signature line because of his stroke. X marked on the signature line by patient and witness by this RN and Trisha HAY.
--- NOTE | 2021-02-19 12:44 | PC.SOCIAL ---
Pg 2 IMM Explained to pt Pg 2 IMM. No questions voiced. Provided pt a copy. Signed, dated, & timed a copy & placed in chart.
[2021-02-19 13:04] VITALS: BP 140/81; PULSE 62; RESP 18; TEMP 37; O2SAT 98
--- NOTE | 2021-02-19 13:06 | PC.NURSE ---
Reviewed discharge with patient at this time. Patient verbalized understanding of discharge instructions: Following up with primary care provider in 10 days and the need to pickle cutter his medications at his pharmacy- [facility]. Patient verbalized understanding of the need to take all of the medications as prescribed. Patient verbalized understanding of the signs ans symptoms of a stroke and to call 911. Patient is A&Ox3. Respirations even and non-labored on room air. Bilateral IV's removed. Patient tolerated well. Patient wheel chaired to private car at this time.
--- NOTE | 2021-02-20 17:16 | PC.RESP ---
Smoking Cessation information sent to patient.
== END 2021-02-19 12:45 | disposition home health service (06) | DRG 65 ==
LOC: ER 22:12 → MEDSURG 02-16 07:43
PROVIDERS: Internal Medicine; Admitting Provider Internal Medicine; Emergency Provider Emergency Medicine; PCP Nurse Practitioner Family; Visit Provider Student in an Organized Health Care Education/Training Program
DX: I63.512 Cerebral infarction due to unspecified occlusion or stenosis of left middle cerebral artery (principal); I69.351 Hemiplegia and hemiparesis following cerebral infarction affecting right dominant side; F33.3 Major depressive disorder, recurrent, severe with psychotic symptoms; I69.328 Other speech and language deficits following cerebral infarction; I10 Essential (primary) hypertension; N40.1 Benign prostatic hyperplasia with lower urinary tract symptoms; R33.8 Other retention of urine; R39.12 Poor urinary stream; R31.9 Hematuria, unspecified; I95.9 Hypotension, unspecified; E87.6 Hypokalemia; I65.23 Occlusion and stenosis of bilateral carotid arteries; F17.210 Nicotine dependence, cigarettes, uncomplicated; Z91.14 Patient's other noncompliance with medication regimen; W19.XXXA Unspecified fall, initial encounter
CPT/HCPCS: 36415; 36416; 36600; 51702; 70450; 70496; 70498; 71045; 80048; 80053; 81001; 82803; 82962; 84484; 85025; 85610; 87077; 87086; 87186; 92523; 92526; 92610; 93005; 93930; 96372; 96374; 97110; 97112; 97116; 97161; 97166; 97535; 99291; G0378; J1650; J3490; Q9967

== ENCOUNTER → 2021-03-04 12:59 | Outpatient (BNVA) | payer MEDICARE, SELFPAY | PROVIDERS: PCP Nurse Practitioner Family; Visit Provider Nurse Practitioner Psychiatric/Mental Health | DX: Z91.14 Patient's other noncompliance with medication regimen (principal); F33.3 Major depressive disorder, recurrent, severe with psychotic symptoms; F17.210 Nicotine dependence, cigarettes, uncomplicated | CPT/HCPCS: 99214 ==

== ENCOUNTER → 2021-06-03 12:36 | Outpatient (BNVA) | payer MEDICARE, SELFPAY | PROVIDERS: PCP Nurse Practitioner Family; Visit Provider Nurse Practitioner Psychiatric/Mental Health | DX: F33.3 Major depressive disorder, recurrent, severe with psychotic symptoms (principal); F17.210 Nicotine dependence, cigarettes, uncomplicated; Z91.14 Patient's other noncompliance with medication regimen | CPT/HCPCS: 99214 ==

== ENCOUNTER → 2021-09-03 12:42 | Outpatient (BNVA) | payer MEDICARE, SELFPAY | PROVIDERS: PCP Nurse Practitioner Family; Visit Provider Nurse Practitioner Psychiatric/Mental Health | DX: F33.3 Major depressive disorder, recurrent, severe with psychotic symptoms (principal); Z79.899 Other long term (current) drug therapy; Z91.14 Patient's other noncompliance with medication regimen; F17.210 Nicotine dependence, cigarettes, uncomplicated | CPT/HCPCS: 99214 ==

== ENCOUNTER 2021-09-05 15:26 | Emergency (ER) | payer MEDICARE, SELFPAY ==
[2021-09-05 15:41] VITALS: BP 155/92; PULSE 52; RESP 16; TEMP 36.9; O2SAT 100
[2021-09-05 16:02] VITALS: BP 168/74; PULSE 48; O2SAT 96
--- NOTE | 2021-09-05 16:19 | ECG_ITS ---
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 Measurements Intervals [place] Rate: 46 P: 62 SD: 167 QRS: 38 QRSD: 80 T: 51 QT: 447 QTc: 395 Interpretive Statements SINUS BRADYCARDIA WITH SINUS ARRHYTHMIA MODERATE ST DEPRESSION [0.05+ mV ST DEPRESSION] Compared to ECG 02/15/2021 20:58:04 No significant changes Electronically Signed On 09-05-2021 17:00:39 CDT by Nick Lopez M.D. [email or web address]
--- NOTE | 2021-09-05 16:19 | XRR_ITS ---
PROCEDURE INFORMATION: Exam: XR Chest Exam date and time: 09/05/2021 4:19 PM Age: 71 years old Clinical indication: Shortness of breath; Additional info: Dyspnea/cough TECHNIQUE: Imaging protocol: XR of the chest. Views: 1 view. COMPARISON: CR XR chest 1V portable [id number] 02/15/2021 9:18 PM FINDINGS: Lungs: Unremarkable. No consolidation. Pleural spaces: Unremarkable. No pleural effusion. No pneumothorax. Heart/Mediastinum: Unremarkable. No cardiomegaly. Bones/joints: Unremarkable. XR/XR chest 1V portable [id number] IMPRESSION: No acute findings. Radiation Dose CTDIVOL = (mGy): DLP = (mGy-cm)
--- NOTE | 2021-09-05 16:19 | CTR_ITS ---
PROCEDURE INFORMATION: Exam: CT Head Without Contrast Exam date and time: 09/05/2021 4:19 PM Age: 71 years old Clinical indication: Visual disturbance and weakness, extremity; Right; Additional info: Dbl vision, R sided weakness TECHNIQUE: Imaging protocol: Computed tomography of the head without contrast. Radiation optimization: All CT scans at this facility use at least one of these dose optimization techniques: automated exposure control; mA and/or kV adjustment per patient size (includes targeted exams where dose is matched to clinical indication); or iterative reconstruction. COMPARISON: CT head wo con* [id number] 02/15/2021 8:55 PM RADIATION DOSE METRICS: Total DLP (mGy-cm): 866.75 FINDINGS: Brain: Mild cortical volume loss. Mild hypodensities in supratentorial periventricular and subcortical white matter, consistent with microangiopathy. No intracranial hemorrhage. Chronic lacunar infarcts in the left caudate head, right lentiform nucleus, left zeyad, and superior right cerebellum. Cerebral ventricles: No ventriculomegaly. Paranasal sinuses: Visualized sinuses are unremarkable. No fluid levels. Mastoid air cells: Stable small left mastoid effusion with inferior sclerosis. The right mastoid is clear. Vasculature: No hyperdense artery. Bones/joints: Unremarkable. No acute fracture. Soft tissues: Unremarkable. CT/CT head wo con* [id number] IMPRESSION: 1. No acute intracranial abnormality. Radiation Dose CTDIVOL = (mGy): DLP = 866.75 (mGy-cm)
--- NOTE | 2021-09-05 16:23 | W.ED.DIZZY ---
Documented by User: Eric Burton DO 09/11/21 08:59 HPI - Dizziness General: Chief Complaint: Dizziness Stated Complaint: NUMB, DOUBLE VISION, SWELLING:NEURO SX Time Seen by Provider: 09/05/21 15:48 History of Present Illness: HPI Narrative: 71-year-old male presents to the emergency room with complaint of lightheadedness and dizziness today. He was walking him [place] got lightheaded and dizzy. He also has double vision however the double vision has been present for the last several months. He has right-sided weakness which is persistent from previous stroke he has had 2 strokes in the past. He has some mild dysarthria. Has persistent weakness on the right side leg is worse than the arm. He denies any chest or pain or shortness of breath today. No falls or injuries. At this point he feels like he is back down to his baseline he does still take clopidogrel. He is also on quetiapine. MD elicited complaint: dizziness and lightheadedness Onset (ago): hour(s) Timing: gradual onset Severity: mild Description: sense of movement History of similar symptoms: Yes Exacerbating factors: nothing Associated symptoms: Reports abnormal vaginal bleeding and weakness ( Present from previous strokes); Denies change in hearing, chest pain, chills, cough, diaphoresis, ear discharge, ear pressure, fevers/chills, headache(s), malaise, nausea, nasal congestion, palpitations, rash, short of breath, syncope, tinnitus or vomiting Associated neuro symptoms: Reports extremity weakness, gait changes and visual changes (Present times several months); Deny confusion, difficulty speaking, dysphagia, diplopia, facial numbness, facial weakness or numbness in extremities Review of Systems Const: Denies: chills, malaise or diaphoresis ENMT: Denies: ear discharge, change in hearing, tinnitus or nasal congestion Card: Denies: chest pain, palpitations or syncope Resp: Denies: dyspnea, productive cough or non-productive cough GI: Denies: nausea, vomiting or dysphagia : Denies: flank pain, dysuria, urinary frequency or urinary urgency Skin/Breast: Denies: rash or pruritus Neuro: Denies: headache(s), numbness in extremities or confusion PFSH ED PFSH: Medical History BPH (benign prostatic hyperplasia) Bradycardia CVA (cerebral vascular accident) Depression Displaced fracture of distal end of radius History of CVA with residual deficit Hypertension Major depressive disorder, recurrent, severe with psychotic symptoms Nicotine dependence, cigarettes, uncomplicated Non compliance w medication regimen Surgical History H/O hand surgery -right hand History of surgery on right wrist Family History Grandfather Stroke Social History Smoking and tobacco status: current every day smoker cigarettes Packs smoked per day: 1 Alcohol intake: never Household members: spouse Marital status: 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 Physical Exam Const: COMMON NORMALS: no acute distress GENERAL APPEARANCE: cooperative and comfortable ORIENTATION/CONSCIOUSNESS: Yes awake, Yes oriented to person, Yes oriented to place and Yes oriented to time HENMT: COMMON NORMALS: normocephalic, atraumatic, hearing grossly normal bilaterally, external ears normal, EAC's normal, TM's normal bilaterally, Normal nasal mucous membranes and turbinates present, moist oral mucous membranes and oropharynx normal HEAD & SCALP: normocephalic and atraumatic NOSE: Normal nasal mucous membranes and turbinates present EXTERNAL EAR: Yes external ears normal EXTERNAL AUDITORY CANAL: EAC's normal TYMPANIC MEMBRANE: TM's normal bilaterally Eye: COMMON NORMALS: Equal, round and reactive pupils present, EOMs intact bilaterally, conjunctivae normal and no scleral icterus CONJUNCTIVA: Yes conjunctivae normal PUPIL: Yes Equal, round and reactive pupils present Neck/C-Spine: COMMON NORMALS: no JVD Resp: COMMON NORMALS: normal respiratory effort, No retractions, No use of accessory muscles and clear to auscultation bilaterally AUSCULTATION: clear to auscultation bilaterally Cardio: COMMON NORMALS: no JVD, regular rate, regular rhythm and No murmurs present (Cardio) RATE: regular rate RHYTHM: regular rhythm GI: COMMON NORMALS: Soft to palpation and No hepatosplenomegaly present AUSCULTATION: Yes normoactive bowel sounds PALPATION: Yes Soft to palpation, No Tenderness to palpation present (GI), No Guarding due to palpation present (GI) and Yes No hepatosplenomegaly present Extremity: COMMON NORMALS: normal to inspection, capillary refill normal, no clubbing, cyanosis or edema, no calf tenderness and no pedal edema Neuro: SENSORIUM/ORIENTATION: Yes oriented to person, Yes oriented to place and Yes oriented to time Skin: COMMON NORMALS: no rashes or lesions noted GENERAL SKIN EXAM: no rashes or lesions noted Course Vital Signs: Vital signs: Vital Signs Temperature 98.5 F 09/05/21 20:23 Pulse Rate 48 L 09/05/21 20:23 Respiratory Rate 18 09/05/21 20:23 Blood Pressure 188/146 09/05/21 20:23 Pulse Oximetry 96 09/05/21 20:23 MDM - Dizziness MDM Narrative: Medical decision making narrative: Care turned over to Dr. Ordoñez at change of shift. Patient has elevated stroke score however is confounded by previous strokes contributing to it. Lab Data: Labs: Lab Results 09/05/21 09/05/21 09/05/21 16:15 16:15 18:08 WBC 5.8 10^3/uL 10^3/ uL (4.0-10.0) RBC 3.77 10^6/uL L 10 ^6/uL (4.1-5.3) Hgb 12.2 g/dL g/dL (11.7-16.6) Hct 37.0 % L % (42.0-52.0) MCV 98.1 fl H fl (80-94) MCH 32.4 pg pg (28.0-34.0) MCHC 33.0 g/dL g/dL (30.0-36.0) RDW 14.2 % % (12.1-15.1) Plt Count 202 10^3/cmm 10^3 /cmm (130-400) MPV 11.6 fL H fL (7.4-10.4) Neut % (Auto) 57.9 % % Lymph % (Auto) 30.0 % % [place] % (Auto) 10.0 % % Eos % (Auto) 1.4 % % Baso % (Auto) 0.5 % % Neut # (Auto) 3.36 10^3/uL 10^3 /uL (1.8-7.7) Lymph # (Auto) 1.7 10^3/uL 10^3/ uL (0.8-4.8) [place] # (Auto) 0.6 10^3/uL 10^3/ uL (0.2-0.9) Eos # (Auto) 0.1 10^3/uL 10^3/ uL (0.0-0.8) Baso # (Auto) 0.0 10^3/uL 10^3/ uL (0.0-0.1) Nucleated RBC % (a uto) 0 % % Nucleated RBCs # 0.0 /100WBC /100W BC Sodium 140 mmol/L mmol/L (136-145) Potassium 4.1 mmol/L mmol/L (3.5-5.1) Chloride 102 mmol/L mmol/L (98-107) Carbon Dioxide 28 mmol/L mmol/L (22-29) Anion Gap 14.1 (5-19) BUN 15 mg/dL mg/dL (8-23) Creatinine 0.8 mg/dL mg/dL (0.7-1.2) GFR Calculation Not Reportable Glucose 81 mg/dL mg/dL (65-115) Calculated Osmolal ity 290 mOsm/kg mOsm/ kg (285-295) Calcium 9.1 mg/dL mg/dL (8.5-10.5) Total Bilirubin 0.2 mg/dL mg/dL (0.15-1.2) AST 12 U/L U/L (0-40) ALT 21 U/L U/L (0-41) Alkaline Phosphata se 77 IU/L IU/L (40-130) Creatine Kinase 334 U/L H* U/L (39-308) Total Protein 6.2 g/dL L g/dL (6.6-8.7) Albumin 4.0 g/dL g/dL (3.5-5.2) Globulin 2.2 g/dL g/dL (1.3-4.6) Urine Color Yellow (Yellow) Urine Appearance Hazy A (CLEAR) Urine pH 7 (5-7) Ur Specific Gravit y 1.015 (1.005-1.030) Urine Protein Neg (Negative) Urine Glucose (UA) Norm (Normal) Urine Ketones Negative (Negative) Urine Blood Neg (Negative) Urine Nitrate Negative (Negative) Urine Bilirubin Neg (Negative) Urine Urobilinogen Norm mg/dL mg/dL (Negative) Ur Leukocyte Ranjana ase 1+ H (Negative) Urine RBC 0-4 /hpf H /hpf (0-2) Urine WBC >100 /hpf H /hpf (0-5) Ur Squamous Epith Cells 0-4 /hpf H /hpf (0-5) Amorphous Sediment Not Reportable Urine Bacteria Trace /hpf /hpf (NONE) Urine Mucus Trace /hpf /hpf Discharge Plan Discharge Patient Disposition: Home Clinical Impression: Blurred vision Condition: Stable Prescriptions: No Action atorvastatin 40 mg tablet 40 mg PO DAILY RF: 0 tamsulosin [Flomax] 0.4 mg capsule 0.4 mg PO DAILY RF: 0 fluoxetine [Prozac] 20 mg capsule 20 mg PO .morning Qty: 30 RF: 6 quetiapine [Seroquel] 25 mg tablet 12.5 mg PO BEDTIME PRN (Reason: sleep) Qty: 30 RF: 1 lisinopril 40 mg tablet 40 mg PO DAILY 30 Days Qty: 30 RF: 3 amlodipine 10 mg Tablet 10 mg PO DAILY Qty: 30 RF: 0 aspirin 81 mg Tablet,Delayed Release (Dr/Ec) 81 mg PO DAILY Qty: 30 RF: 0 clopidogrel 75 mg Tablet 75 mg PO DAILY Qty: 30 RF: 0 Discharge Orders: Discharge ED (Routine); Ordered 09/05/21 Ordered By: Stuart Ordoñez Referrals: Coretta Vu APN [Primary Care Provider] - Discharge Diet: Advance as tolerated Discharge Activity: Resume usual activity Patient Instructions: Blurred Vision (ED) Coding Level of Care Code ED Agricultural Equipment Design Engineer for Rollyg Fwd Exam Comprehensive NIH stroke score NIHSS Level Of Consciousness - 1a: 0 Level Of Consciousness Questions - 1b: Both Correct Level Of Consciousness Commands - 1c: Both Correct Best Gaze - 2: Partial Gaze Palsy Visual [place] - 3: No Visual Loss Facial Palsy - 4: Normal Motor Arm Right - 5: Drift Motor Arm Left - 5: No Drift Motor Leg Right - 6: Effort Against [place] Motor Leg Left - 6: No Drift Limb Ataxia - 7: Present In One Limb Sensory - 8: Normal Best Language - 9: Mild/Moderate Aphasia Dysarthia - 10: Mild/Moderate Dysarthia Extinction And Inattention - 11: 0 Score Total Score: 7 Documented by User: Stuart Ordoñez MD 09/05/21 20:17 HPI - Dizziness General: Chief Complaint: Dizziness Stated Complaint: NUMB, DOUBLE VISION, SWELLING:NEURO SX Time Seen by Provider: 09/05/21 15:48 PFSH ED PFSH: Medical History BPH (benign prostatic hyperplasia) Bradycardia CVA (cerebral vascular accident) Depression Displaced fracture of distal end of radius History of CVA with residual deficit Hypertension Major depressive disorder, recurrent, severe with psychotic symptoms Nicotine dependence, cigarettes, uncomplicated Non compliance w medication regimen Surgical History H/O hand surgery -right hand History of surgery on right wrist Family History Grandfather Stroke Social History Smoking and tobacco status: current every day smoker cigarettes Packs smoked per day: 1 Alcohol intake: never Household members: spouse Marital status: 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 Course Vital Signs: Vital signs: Vital Signs Temperature 98.5 F 09/05/21 20:23 Pulse Rate 48 L 09/05/21 20:23 Respiratory Rate 18 09/05/21 20:23 Blood Pressure 188/146 09/05/21 20:23 Pulse Oximetry 96 09/05/21 20:23 MDM - Dizziness MDM Narrative: Medical decision making narrative: Patient presents for blurred vision has been going on a little over a month he also had some right-sided weakness due to previous stroke. His head CT here shows no acute findings I did offer him admission for MRI he refuses states that he feels improved and would rather follow-up his PCP outpatient patient was able to ambulate in the halls he is to follow-up with PCP in 2 to 4 days return if he worsens or changes his mind he understands agrees to plan. Lab Data: Labs: Lab Results 09/05/21 09/05/21 09/05/21 16:15 16:15 18:08 WBC 5.8 10^3/uL 10^3/ uL (4.0-10.0) RBC 3.77 10^6/uL L 10 ^6/uL (4.1-5.3) Hgb 12.2 g/dL g/dL (11.7-16.6) Hct 37.0 % L % (42.0-52.0) MCV 98.1 fl H fl (80-94) MCH 32.4 pg pg (28.0-34.0) MCHC 33.0 g/dL g/dL (30.0-36.0) RDW 14.2 % % (12.1-15.1) Plt Count 202 10^3/cmm 10^3 /cmm (130-400) MPV 11.6 fL H fL (7.4-10.4) Neut % (Auto) 57.9 % % Lymph % (Auto) 30.0 % % [place] % (Auto) 10.0 % % Eos % (Auto) 1.4 % % Baso % (Auto) 0.5 % % Neut # (Auto) 3.36 10^3/uL 10^3 /uL (1.8-7.7) Lymph # (Auto) 1.7 10^3/uL 10^3/ uL (0.8-4.8) [place] # (Auto) 0.6 10^3/uL 10^3/ uL (0.2-0.9) Eos # (Auto) 0.1 10^3/uL 10^3/ uL (0.0-0.8) Baso # (Auto) 0.0 10^3/uL 10^3/ uL (0.0-0.1) Nucleated RBC % (a uto) 0 % % Nucleated RBCs # 0.0 /100WBC /100W BC Sodium 140 mmol/L mmol/L (136-145) Potassium 4.1 mmol/L mmol/L (3.5-5.1) Chloride 102 mmol/L mmol/L (98-107) Carbon Dioxide 28 mmol/L mmol/L (22-29) Anion Gap 14.1 (5-19) BUN 15 mg/dL mg/dL (8-23) Creatinine 0.8 mg/dL mg/dL (0.7-1.2) GFR Calculation Not Reportable Glucose 81 mg/dL mg/dL (65-115) Calculated Osmolal ity 290 mOsm/kg mOsm/ kg (285-295) Calcium 9.1 mg/dL mg/dL (8.5-10.5) Total Bilirubin 0.2 mg/dL mg/dL (0.15-1.2) AST 12 U/L U/L (0-40) ALT 21 U/L U/L (0-41) Alkaline Phosphata se 77 IU/L IU/L (40-130) Creatine Kinase 334 U/L H* U/L (39-308) Total Protein 6.2 g/dL L g/dL (6.6-8.7) Albumin 4.0 g/dL g/dL (3.5-5.2) Globulin 2.2 g/dL g/dL (1.3-4.6) Urine Color Yellow (Yellow) Urine Appearance Hazy A (CLEAR) Urine pH 7 (5-7) Ur Specific Gravit y 1.015 (1.005-1.030) Urine Protein Neg (Negative) Urine Glucose (UA) Norm (Normal) Urine Ketones Negative (Negative) Urine Blood Neg (Negative) Urine Nitrate Negative (Negative) Urine Bilirubin Neg (Negative) Urine Urobilinogen Norm mg/dL mg/dL (Negative) Ur Leukocyte Ranjana ase 1+ H (Negative) Urine RBC 0-4 /hpf H /hpf (0-2) Urine WBC >100 /hpf H /hpf (0-5) Ur Squamous Epith Cells 0-4 /hpf H /hpf (0-5) Amorphous Sediment Not Reportable Urine Bacteria Trace /hpf /hpf (NONE) Urine Mucus Trace /hpf /hpf Imaging Data^: CT Head: Attestation: I personally reviewed and interpreted this imaging study as follows: Radiologist's impression: [address] [address] [address] Scan Report Signed Patient: Kelvin Pressley Unit #: [id number] : 1950 Age/Sex: 71 / M ADM Date: 09/05/21 Loc: ER Room/Bed: Attending Dr: Ordering Provider/Ordering MD: Eric Burton DO Date of Service: 09/05/21 Procedure(s): CT head wo con* [id number] Accession Number(s): [id number] Report Number: [id number] PROCEDURE INFORMATION: Exam: CT Head Without Contrast Exam date and time: 09/05/2021 4:19 PM Age: 71 years old Clinical indication: Visual disturbance and weakness, extremity; Right; Additional info: Dbl vision, R sided weakness TECHNIQUE: Imaging protocol: Computed tomography of the head without contrast. Radiation optimization: All CT scans at this facility use at least one of these dose optimization techniques: automated exposure control; mA and/or kV adjustment per patient size (includes targeted exams where dose is matched to clinical indication); or iterative reconstruction. COMPARISON: CT head wo con* [id number] 02/15/2021 8:55 PM RADIATION DOSE METRICS: Total DLP (mGy-cm): 866.75 FINDINGS: Brain: Mild cortical volume loss. Mild hypodensities in supratentorial periventricular and subcortical white matter, consistent with microangiopathy. No intracranial hemorrhage. Chronic lacunar infarcts in the left caudate head, right lentiform nucleus, left zeyad, and superior right cerebellum. Cerebral ventricles: No ventriculomegaly. Paranasal sinuses: Visualized sinuses are unremarkable. No fluid levels. Mastoid air cells: Stable small left mastoid effusion with inferior sclerosis. The right mastoid is clear. Vasculature: No hyperdense artery. Bones/joints: Unremarkable. No acute fracture. Soft tissues: Unremarkable. CT/CT head wo con* [id number] IMPRESSION: 1. No acute intracranial abnormality. Radiation Dose CTDIVOL = (mGy): DLP = 866.75 (mGy-cm) Dictated By: Hussein Lloyd CXR: Radiologist's impression: [facility] [address] [place] [address] XRay Report Signed Patient: Kelvin Pressley Unit #: [id number] : 1950 Age/Sex: 71 / M ADM Date: 09/05/21 Loc: ER Room/Bed: Attending Dr: Ordering Provider/Ordering MD: Eric Burton DO Date of Service: 09/05/21 Procedure(s): XR chest 1V portable [id number] Accession Number(s): [id number] Report Number: [id number] PROCEDURE INFORMATION: Exam: XR Chest Exam date and time: 09/05/2021 4:19 PM Age: 71 years old Clinical indication: Shortness of breath; Additional info: Dyspnea/cough TECHNIQUE: Imaging protocol: XR of the chest. Views: 1 view. COMPARISON: CR XR chest 1V portable [id number] 02/15/2021 9:18 PM FINDINGS: Lungs: Unremarkable. No consolidation. Pleural spaces: Unremarkable. No pleural effusion. No pneumothorax. Heart/Mediastinum: Unremarkable. No cardiomegaly. Bones/joints: Unremarkable. XR/XR chest 1V portable [id number] IMPRESSION: No acute findings. Radiation Dose CTDIVOL = (mGy): DLP = (mGy-cm) Dictated By: Hussein Lloyd Signed By: Hussein Lloyd Signed Date/Time: 09/05/211638 DD/ 18 Discharge Plan Discharge Patient Disposition: Home Clinical Impression: Blurred vision Condition: Stable Prescriptions: No Action atorvastatin 40 mg tablet 40 mg PO DAILY RF: 0 tamsulosin [Flomax] 0.4 mg capsule 0.4 mg PO DAILY RF: 0 fluoxetine [Prozac] 20 mg capsule 20 mg PO .morning Qty: 30 RF: 6 quetiapine [Seroquel] 25 mg tablet 12.5 mg PO BEDTIME PRN (Reason: sleep) Qty: 30 RF: 1 lisinopril 40 mg tablet 40 mg PO DAILY 30 Days Qty: 30 RF: 3 amlodipine 10 mg Tablet 10 mg PO DAILY Qty: 30 RF: 0 aspirin 81 mg Tablet,Delayed Release (Dr/Ec) 81 mg PO DAILY Qty: 30 RF: 0 clopidogrel 75 mg Tablet 75 mg PO DAILY Qty: 30 RF: 0 Discharge Orders: Discharge ED (Routine); Ordered 09/05/21 Ordered By: Stuart Ordoñez Referrals: Coretta Vu APN [Primary Care Provider] - Discharge Diet: Advance as tolerated Discharge Activity: Resume usual activity Patient Instructions: Blurred Vision (ED) Coding Level of Care Code ED Agricultural Equipment Design Engineer for Chg Fwd Exam Comprehensive
[2021-09-05 16:36] LABS: Basophils % 0.5 %; Eosinophils # 0.1 10^3/uL (0.0-0.8); Eosinophils % 1.4 %; Hemoglobin 12.2 g/dL (11.7-16.6); Lymphocytes # 1.7 10^3/uL (0.8-4.8); Mean Corpuscular Hemoglobin 32.4 pg (28.0-34.0); Mean Corpuscular Volume 98.1 fl (80-94); Mean Platelet Volume 11.6 fL (7.4-10.4); Monocytes # 0.6 10^3/uL (0.2-0.9); Neutrophils # 3.36 10^3/uL (1.8-7.7); Neutrophils % 57.9 %; Nucleated Red Blood Cells % 0 %; Platelet Count 202 10^3/cmm (130-400); Red Blood Count 3.77 10^6/uL (4.1-5.3); Red Cell Distribution Width 14.2 % (12.1-15.1); White Blood Count 5.8 10^3/uL (4.0-10.0)
[2021-09-05 17:04] LABS: Alanine Aminotransferase 21 U/L (0-41); Alkaline Phosphatase 77 IU/L (40-130); Anion Gap 14.1 (5-19); Aspartate Amino Transferase 12 U/L (0-40); Blood Urea Nitrogen 15 mg/dL (8-23); Calcium 9.1 mg/dL (8.5-10.5); Carbon Dioxide 28 mmol/L (22-29); Chloride 102 mmol/L (98-107); Creatinine Clr Calc Pharmacy 87.7646; Globulin 2.2 g/dL (1.3-4.6); Glucose 81 mg/dL (65-115); Osmolality Calculated 290 mOsm/kg (285-295); Potassium 4.1 mmol/L (3.5-5.1); Sodium 140 mmol/L (136-145); Total Bilirubin 0.2 mg/dL (0.15-1.2); Total Protein 6.2 g/dL (6.6-8.7)
[2021-09-05 17:19] LABS: Creatine Phosphokinase 334 U/L (39-308)
--- NOTE | 2021-09-05 17:20 | PC.NURSE ---
CK [address] Burton.
[2021-09-05 18:02] VITALS: BP 170/86; PULSE 60; O2SAT 98
[2021-09-05 18:31] LABS: Add Urine Microscopic? YES; Bilirubin Urine Neg (Negative); Blood Urine Neg (Negative); Glucose Urine UA Norm (Normal); Ketones Urine Negative (Negative); Leukocyte Esterase Urine 1+ (Negative); Nitrate Urine Negative (Negative); Protein Urine Neg (Negative); Specific Gravity, Urine 1.015 (1.005-1.030); Urine Appearance Hazy (CLEAR); Urine Color Yellow (Yellow); Urobilinogen Urine Norm (Negative); pH Urine 7 (5-7)
[2021-09-05 18:32] LABS: Add Urine Culture? Yes; Bacteria Urine TRACE /hpf; Mucus Urine TRACE /hpf; RBC Urine 0-4 /hpf (0-2); Squamous Epithelial Cell Urine 0-4 /hpf (0-5); WBC Urine >100 /hpf (0-5)
[2021-09-05 19:10] VITALS: BP 188/146; PULSE 47; RESP 16; O2SAT 97
[2021-09-05 20:10] VITALS: PULSE 48; RESP 18; O2SAT 96
[2021-09-05 20:23] VITALS: BP 188/146; PULSE 48; RESP 18; TEMP 36.9; O2SAT 96
== END 2021-09-05 20:24 | disposition home or self-care (01) ==
PROVIDERS: Family Medicine; Emergency Provider Emergency Medicine; PCP Nurse Practitioner Family
DX: H53.8 Other visual disturbances (principal); R29.707 NIHSS score 7; F17.210 Nicotine dependence, cigarettes, uncomplicated; Z79.82 Long term (current) use of aspirin; N40.0 Benign prostatic hyperplasia without lower urinary tract symptoms; F32.A Depression, unspecified; I10 Essential (primary) hypertension; I69.351 Hemiplegia and hemiparesis following cerebral infarction affecting right dominant side
CPT/HCPCS: 70450; 71045; 80053; 81001; 82550; 85025; 87086; 93005; 99284

== ENCOUNTER → 2021-10-16 15:03 | Outpatient (BNVA) | payer MEDICARE, SELFPAY | PROVIDERS: PCP Nurse Practitioner Family; Visit Provider Nurse Practitioner Psychiatric/Mental Health | DX: F33.3 Major depressive disorder, recurrent, severe with psychotic symptoms (principal); F17.210 Nicotine dependence, cigarettes, uncomplicated; Z91.14 Patient's other noncompliance with medication regimen | CPT/HCPCS: 99214 ==

== ENCOUNTER 2021-12-09 08:33 | Outpatient (CLI) | payer MEDICARE, SELFPAY ==
--- NOTE | 2021-12-09 08:41 | CT_ITS ---
WS: [id number] LDCT LUNG CANCER SCREENING TECHNIQUE: Noncontrast CT of the chest with coronal and sagittal reformatted images. CLINICAL INFORMATION: NICOTINE DEPENDENCE COMPARISON: None. DLP: 58.54 mGy.cm DIvol: Mean CTDIvol: 1.58 (mGy) All CT scans at [facility] use at least one of these dose optimization techniques: automat ed exposure control; mA and/or kV adjustment per patient size (includes targeted exams where dose is matched to clinical indication); or iterative reconstruction. FINDINGS: No suspicious intraparenchymal pulmonary lesions. No acute pulmonary infiltrates. No focal consolidat ion or pleural fluid. Aortic calcification. No mediastinal or hilar lymphadenopathy. Coronary calcifi cation. No axillary lymphadenopathy. Normal GE junction. Adrenal glands are normal. Chronic anterior wedging in the mid thoracic spine at T7. CT/CT lung screening [id number] IMPRESSION: LUNG-RADS: 1-Negative FOLLOW UP: 12 Month: Continue annual screening with LDCT
== END 2021-12-09 08:34 | disposition home or self-care (01) ==
LOC: RAD 08:37
PROVIDERS: PCP Family Medicine; Visit Provider Family Medicine
DX: Z12.2 Encounter for screening for malignant neoplasm of respiratory organs (principal); F17.210 Nicotine dependence, cigarettes, uncomplicated
CPT/HCPCS: 71271

== ENCOUNTER → 2022-01-08 15:09 | Outpatient (BNVA) | payer MEDICARE, SELFPAY | PROVIDERS: PCP Family Medicine; Visit Provider Nurse Practitioner Psychiatric/Mental Health | DX: F33.3 Major depressive disorder, recurrent, severe with psychotic symptoms (principal); Z91.14 Patient's other noncompliance with medication regimen; Z03.89 Encounter for observation for other suspected diseases and conditions ruled out; F17.210 Nicotine dependence, cigarettes, uncomplicated; Z79.899 Other long term (current) drug therapy | CPT/HCPCS: 80053; 82252; 99214 ==

== ENCOUNTER 2022-02-19 22:41 | Emergency (ER) | payer MEDICARE, SELFPAY ==
[2022-02-19 22:44] VITALS: BP 171/105; PULSE 65; RESP 18; TEMP 36.7; O2SAT 97; BMI 25.1
--- NOTE | 2022-02-19 22:46 | XRR_ITS ---
PROCEDURE INFORMATION: Exam: XR Chest Exam date and time: 02/19/2022 10:55 PM Age: 71 years old Clinical indication: Patient HX: Mhe/si. Per , states patient having episodes of angry outbursts. History of prior stroke. TECHNIQUE: Imaging protocol: XR of the chest. Views: 1 view. COMPARISON: CR XR chest 1V portable [id number] 09/05/2021 4:27 PM FINDINGS: Lungs: Unremarkable. No consolidation. Pleural spaces: Unremarkable. No pleural effusion. No pneumothorax. Heart/Mediastinum: Unremarkable. No cardiomegaly. Bones/joints: Unremarkable. XR/XR chest 1V portable [id number] IMPRESSION: No acute findings.
--- NOTE | 2022-02-19 22:46 | ECG_ITS ---
[facility] Test Date: 2022-02-19 Pat Name: Kelvin Pressley Department: Room: Gender: Male It Manager: : 1950 Requested By: Stuart Ordoñez Order Number: [id number] Hector MD: Trish Fountain M.D. Measurements Intervals [place] Rate: 65 P: 59 [place]: 162 QRS: 7 QRSD: 90 T: 20 QT: 399 QTc: 415 Interpretive Statements SINUS RHYTHM WITH SINUS ARRHYTHMIA MINIMAL ST DEPRESSION [0.025+ mV ST DEPRESSION] Compared to ECG 09/05/2021 16:31:16 Sinus bradycardia no longer present ST (T wave) deviation still present Electronically Signed On 02-20-2022 16:45:51 CDT by Trish Fountain M.D. [email or web address]
--- NOTE | 2022-02-19 22:51 | CTR_ITS ---
PROCEDURE INFORMATION: Exam: CT Head Without Contrast Exam date and time: 02/19/2022 11:26 PM Age: 71 years old Clinical indication: Patient HX: Mhe/si. Per , states patient having episodes of angry outbursts. History of prior stroke. TECHNIQUE: Imaging protocol: Computed tomography of the head without contrast. Radiation optimization: All CT scans at this facility use at least one of these dose optimization techniques: automated exposure control; mA and/or kV adjustment per patient size (includes targeted exams where dose is matched to clinical indication); or iterative reconstruction. COMPARISON: CT head wo con* [id number] 09/05/2021 4:37 PM RADIATION DOSE METRICS: Total DLP (mGy-cm): 872.22 FINDINGS: Brain: There is moderate cerebral atrophy. Focal low-attenuation change in the left zeyad stable from comparison. No midline shift of the brain. Negative for intracranial hemorrhage. No space-occupying intracranial mass. Cerebral ventricles: No ventriculomegaly. Paranasal sinuses: Visualized sinuses are unremarkable. No fluid levels. Mastoid air cells: Visualized mastoid air cells are well aerated. Bones/joints: Unremarkable. No acute fracture. Soft tissues: Unremarkable. CT/CT head wo con* [id number] IMPRESSION: 1. No acute intracranial abnormality. 2. Lacunar infarct in the left zeyad stable from comparison.
--- NOTE | 2022-02-19 22:54 | ED.C_ITS ---
Documented by User: Stuart Ordoñez MD 02/19/22 23:24 HPI - Psych General: Chief Complaint: Psychiatric Symptoms Stated Complaint: 96 hour hold Time Seen by Provider: 02/19/22 22:46 Source: patient and police Mode of arrival: other (police) Limitations: no limitations History of Present Illness: 71-year-old male who is brought by police under 96-hour hold. Patient had history of 2 strokes over the last 2 years per police on a 96 because he has been increasingly anger. He has been having anger outburst and has been trying to attack her and she fears for her life. Patient here is not combative but he is fairly uncooperative with questioning refused to answer most questions here. He is ANO x4. Associated symptoms: Deny depression Review of Systems Const: Denies: fever(s), chills, body aches or change in appetite Eyes: Denies: blurry vision or eye discomfort ENMT: Denies: throat pain or dental pain Card: Denies: chest pain Resp: Denies: dyspnea GI: Denies: abdominal pain, nausea, vomiting or diarrhea : Denies: dysuria Musc: Denies: neck pain or back pain Skin/Breast: Denies: rash Neuro: Denies: headache(s) Psych: Reports: mood swings and irritability; Denies: depression Adam/Lymph: Denies: easy bruising All/Imm: Denies: urticaria PFSH ED PFSH: Medical History Altered mental status BPH (benign prostatic hyperplasia) Bradycardia CVA (cerebral vascular accident) Depression Displaced fracture of distal end of radius Fall History of CVA with residual deficit Hypertension Major depressive disorder, recurrent, severe with psychotic symptoms Nicotine dependence, cigarettes, uncomplicated Non compliance w medication regimen Psychiatric care Surgical History H/O hand surgery -right hand History of surgery on right wrist Family History Grandfather Stroke Social History Smoking and tobacco status: current every day smoker cigarettes Packs smoked per day: 1 Alcohol intake: never Household members: spouse Marital status: 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 Physical Exam Const: COMMON NORMALS: patient oriented x3 and healthy appearing HENMT: COMMON NORMALS: normocephalic and atraumatic HEAD & SCALP: normocephalic and atraumatic Eye: COMMON NORMALS: Equal, round and reactive pupils present and EOMs intact bilaterally PUPIL: Yes Equal, round and reactive pupils present Neck/C-Spine: COMMON NORMALS: full ROM and supple Chest: COMMONS NORMALS: normal inspection of the chest and normal palpation of entire chest wall Resp: COMMON NORMALS: normal respiratory effort, No retractions, No use of accessory muscles and clear to auscultation bilaterally AUSCULTATION: clear to auscultation bilaterally Cardio: COMMON NORMALS: regular rate, regular rhythm and No murmurs present (Cardio) RATE: regular rate RHYTHM: regular rhythm GI: COMMON NORMALS: Normal to inspection, nondistended, normoactive bowel sounds present, Soft to palpation, non-tender and no masses PALPATION: Yes Soft to palpation Extremity: COMMON NORMALS: normal to inspection and full ROM Neuro: COMMON NORMALS: patient oriented x3, moves all extremities and no focal motor deficits Psych: COMMON NORMALS: mental status grossly normal ATTITUDE: Yes evasive and Yes agitated Skin: COMMON NORMALS: no rashes or lesions noted and no wounds GENERAL SKIN EXAM: no rashes or lesions noted Course Vital Signs: Vital signs: Vital Signs Temperature 98.1 F 02/21/22 16:00 Pulse Rate 61 02/21/22 19:49 Respiratory Rate 22 H 02/21/22 19:49 Blood Pressure 111/75 02/21/22 19:49 Pulse Oximetry 98 02/21/22 19:49 MDM - Psych Lab Data : 02/19/22 23:15 02/20/22 07:29 Radiology Impressions Chest X-Ray 02/19/22 22:46 IMPRESSION: No acute findings. Head CT 02/19/22 22:51 IMPRESSION: 1. No acute intracranial abnormality. 2. Lacunar infarct in the left zeyad stable from comparison. Laboratory Results WBC 5.4 10^3/uL (4.0-10.0) 02/19/22 23:15 RBC 4.42 10^6/uL (4.1-5.3) 02/19/22 23:15 Hgb 14.2 g/dL (11.7-16.6) 02/19/22 23:15 Hct 41.2 % (42.0-52.0) L 02/19/22 23:15 MCV 93.2 fl (80-94) 02/19/22 23:15 MCH 32.1 pg (28.0-34.0) 02/19/22 23:15 MCHC 34.5 g/dL (30.0-36.0) 02/19/22 23:15 RDW 13.2 % (12.1-15.1) 02/19/22 23:15 Plt Count 207 10^3/cmm (130-400) 02/19/22 23:15 MPV 11.7 fL (7.4-10.4) H 02/19/22 23:15 Neut % (Auto) 48.1 % 02/19/22 23:15 Lymph % (Auto) 38.4 % 02/19/22 23:15 Grundy % (Auto) 11.6 % 02/19/22 23:15 Eos % (Auto) 1.3 % 02/19/22 23:15 Baso % (Auto) 0.4 % 02/19/22 23:15 Neut # (Auto) 2.62 10^3/uL (1.8-7.7) 02/19/22 23:15 Lymph # (Auto) 2.1 10^3/uL (0.8-4.8) 02/19/22 23:15 [place] # (Auto) 0.6 10^3/uL (0.2-0.9) 02/19/22 23:15 Eos # (Auto) 0.1 10^3/uL (0.0-0.8) 02/19/22 23:15 Baso # (Auto) 0.0 10^3/uL (0.0-0.1) 02/19/22 23:15 Nucleated RBC % (auto) 0 % 02/19/22 23:15 Nucleated RBCs # 0.0 /100WBC 02/19/22 23:15 Sodium 137 mmol/L (136-145) 02/19/22 23:15 Potassium 3.8 mmol/L (3.5-5.1) 02/20/22 07:29 Chloride 98 mmol/L (98-107) 04/20/22 23:15 Carbon Dioxide 25 mmol/L (22-29) 02/19/22 23:15 Anion Gap 17.1 (5-19) 02/19/22 23:15 BUN 19 mg/dL (8-23) 02/19/22 23:15 Creatinine 1.1 mg/dL (0.7-1.2) 02/19/22 23:15 GFR Calculation Not Reportable 02/19/22 23:15 Glucose 87 mg/dL (65-115) 02/19/22 23:15 Calculated Osmolality 286 mOsm/kg (285-295) 02/19/22 23:15 Calcium 10.1 mg/dL (8.5-10.5) 02/19/22 23:15 Total Bilirubin 0.4 mg/dL (0.15-1.2) 02/19/22 23:15 AST 22 U/L (0-40) 02/19/22 23:15 ALT 17 U/L (0-41) 02/19/22 23:15 Alkaline Phosphatase 87 IU/L (40-130) 02/19/22 23:15 Total Protein 7.3 g/dL (6.6-8.7) 02/19/22 23:15 Albumin 4.7 g/dL (3.5-5.2) 02/19/22 23:15 Globulin 2.6 g/dL (1.3-4.6) 02/19/22 23:15 TSH 5.66 uIU/mL (0.27-4.20) H 02/19/22 23:15 Urine Color Yellow (Yellow) 02/20/22 01:02 Urine Appearance Clear (CLEAR) 02/20/22 01:02 Urine pH 5 (5-7) 02/20/22 01:02 Ur Specific [place] 1.020 (1.005-1.030) 02/20/22 01:02 Urine Protein Neg (Negative) 02/20/22 01:02 Urine Glucose (UA) Norm (Normal) 02/20/22 01:02 Urine Ketones Negative (Negative) 02/20/22 01:02 Urine Blood Neg (Negative) 02/20/22 01:02 Urine Nitrate Negative (Negative) 02/20/22 01:02 Urine Bilirubin Neg (Negative) 02/20/22 01:02 Urine Urobilinogen 1 mg/dL (Negative) H 02/20/22 01:02 Ur Leukocyte Esterase Negative (Negative) 02/20/22 01:02 Salicylates < 0.3 mg/dL (3-10) L 02/19/22 23:15 Urine Opiates Screen Negative ng/mL (Negative) 02/20/22 01:02 Acetaminophen < 5.0 ug/mL (10-30) L 02/19/22 23:15 Ur Barbiturates Screen Negative ng/mL (Negative) 02/20/22 01:02 Ur Phencyclidine Scrn Negative ng/mL (Negative) 02/20/22 01:02 Ur Amphetamines Screen Negative ng/mL (Negative) 02/20/22 01:02 U Benzodiazepines Scrn Negative ng/mL (Negative) 02/20/22 01:02 Urine Cocaine Screen Negative ng/mL (Negative) 02/20/22 01:02 U Marijuana (THC) Screen Negative ng/mL (Negative) 02/20/22 01:02 Coronavirus 229E (PCR) Not detected (NOT DETECT) 02/19/22 23:01 SARS-CoV-2 (PCR) Not detected (NOT DETECT) 02/19/22 23:01 EKG Data EKG 1: I personally reviewed and interpreted this EKG as follows: EKG interpretation date: 02/19/22 EKG interpretation time: 23:15 Interpretation: nsr hr [address] or t wave abnormalities qrs 90 qtc 410 Discharge Plan Discharge Patient Disposition: Home Clinical Impression: Outbursts of anger Condition: Stable Prescriptions: No Action tamsulosin [Flomax] 0.4 mg capsule 0.4 mg PO DAILY 0RF fluoxetine [Prozac] 20 mg capsule 20 mg PO .morning Qty: 30 6RF lisinopril 40 mg tablet 40 mg PO DAILY 30 Days Qty: 30 3RF amlodipine 10 mg Tablet 10 mg PO DAILY Qty: 30 0RF aspirin 81 mg Tablet,Delayed Release (Dr/Ec) 81 mg PO DAILY Qty: 30 0RF clopidogrel 75 mg Tablet 75 mg PO DAILY Qty: 30 0RF sildenafil 50 mg tablet See Rx Instructions .ROUTE .COMPLEX 0RF Rx Instructions: 50 mg orally PER DIRECTIONS ON BOTTLE chlorthalidone 25 mg tablet 25 mg PO QAM 0RF Discharge Orders: Discharge ED (Routine); Ordered 02/21/22 Ordered By: Destin Romero Referrals: Hira Vasquez MD [Primary Care Provider] - 1-3 days Patient Instructions: Depression in Older Adults (ED) Activity Restrictions/Additional Instructions: Return for worsening symptoms, including any thourghts wishes or actions of self-harm. Follow up with your doctor. Also follow the recommendations given by psychiatry. Coding Level of Care Code ED Truck Engine Assembler for Chg Fwd Exam Comprehensive Documented by User: Declan Alas 02/20/22 15:50 HPI - Psych General: Chief Complaint: Psychiatric Symptoms Stated Complaint: 96 hour hold Time Seen by Provider: 02/19/22 22:46 PFS ED PFSH: Medical History Altered mental status BPH (benign prostatic hyperplasia) Bradycardia CVA (cerebral vascular accident) Depression Displaced fracture of distal end of radius Fall History of CVA with residual deficit Hypertension Major depressive disorder, recurrent, severe with psychotic symptoms Nicotine dependence, cigarettes, uncomplicated Non compliance w medication regimen Psychiatric care Surgical History H/O hand surgery -right hand History of surgery on right wrist Family History Grandfather Stroke Social History Smoking and tobacco status: current every day smoker cigarettes Packs smoked per day: 1 Alcohol intake: never Household members: spouse Marital status: 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 Course Vital Signs: Vital signs: Vital Signs Temperature 98.1 F 02/21/22 16:00 Pulse Rate 61 02/21/22 19:49 Respiratory Rate 22 H 02/21/22 19:49 Blood Pressure 111/75 02/21/22 19:49 Pulse Oximetry 98 02/21/22 19:49 MDM - Psych Medical Decision Making This patient was signed out to myself Dr. Alas from Dr. Ordoñez at 0600 currently waiting on improvement to the patient potassium level prior to [place] [facility] excepting him patient is underneath a clinical hold 96-hour hold per affidavits filled out by family and . Patient has had some ongoing issues with aggression as well as hallucinations apparently progressed getting worse over the last several weeks. Currently lately and has pending excepted the patient pending a potassium level greater than 3.4 currently it is at 3.1. Patient was provided oral potassium supplementation we will continue to follow with the anticipation acceptance at [facility] and also consider other options. Patient remained in stable condition this time no additional needs or concerns noted. Notified by nursing staff that likely does not want accept the patient at this time we are attempting to find other places for placement at this time. Patient will require [facility]. The patient's daily home meds were ordered. Lab Data : 02/19/22 23:15 02/20/22 07:29 Radiology Impressions Chest X-Ray 02/19/22 22:46 IMPRESSION: No acute findings. Head CT 02/19/22 22:51 IMPRESSION: 1. No acute intracranial abnormality. 2. Lacunar infarct in the left zeyad stable from comparison. Laboratory Results WBC 5.4 10^3/uL (4.0-10.0) 02/19/22 23:15 RBC 4.42 10^6/uL (4.1-5.3) 02/19/22 23:15 Hgb 14.2 g/dL (11.7-16.6) 02/19/22 23:15 Hct 41.2 % (42.0-52.0) L 02/19/22 23:15 MCV 93.2 fl (80-94) 02/19/22 23:15 MCH 32.1 pg (28.0-34.0) 02/19/22 23:15 MCHC 34.5 g/dL (30.0-36.0) 02/19/22 23:15 RDW 13.2 % (12.1-15.1) 02/19/22 23:15 Plt Count 207 10^3/cmm (130-400) 02/19/22 23:15 MPV 11.7 fL (7.4-10.4) H 02/19/22 23:15 Neut % (Auto) 48.1 % 02/19/22 23:15 Lymph % (Auto) 38.4 % 02/19/22 23:15 [place] % (Auto) 11.6 % 02/19/22 23:15 Eos % (Auto) 1.3 % 02/19/22 23:15 Baso % (Auto) 0.4 % 02/19/22 23:15 Neut # (Auto) 2.62 10^3/uL (1.8-7.7) 02/19/22 23:15 Lymph # (Auto) 2.1 10^3/uL (0.8-4.8) 02/19/22 23:15 [place] # (Auto) 0.6 10^3/uL (0.2-0.9) 02/19/22 23:15 Eos # (Auto) 0.1 10^3/uL (0.0-0.8) 02/19/22 23:15 Baso # (Auto) 0.0 10^3/uL (0.0-0.1) 02/19/22 23:15 Nucleated RBC % (auto) 0 % 02/19/22 23:15 Nucleated RBCs # 0.0 /100WBC 02/19/22 23:15 Sodium 137 mmol/L (136-145) 02/19/22 23:15 Potassium 3.8 mmol/L (3.5-5.1) 02/20/22 07:29 Chloride 98 mmol/L (98-107) 02/19/22 23:15 Carbon Dioxide 25 mmol/L (22-29) 02/19/22 23:15 Anion Gap 17.1 (5-19) 02/19/22 23:15 BUN 19 mg/dL (8-23) 02/19/22 23:15 Creatinine 1.1 mg/dL (0.7-1.2) 02/19/22 23:15 GFR Calculation Not Reportable 02/19/22 23:15 Glucose 87 mg/dL (65-115) 02/19/22 23:15 Calculated Osmolality 286 mOsm/kg (285-295) 02/19/22 23:15 Calcium 10.1 mg/dL (8.5-10.5) 02/19/22 23:15 Total Bilirubin 0.4 mg/dL (0.15-1.2) 02/19/22 23:15 AST 22 U/L (0-40) 02/19/22 23:15 ALT 17 U/L (0-41) 02/19/22 23:15 Alkaline Phosphatase 87 IU/L (40-130) 02/19/22 23:15 Total Protein 7.3 g/dL (6.6-8.7) 02/19/22 23:15 Albumin 4.7 g/dL (3.5-5.2) 02/19/22 23:15 Globulin 2.6 g/dL (1.3-4.6) 02/19/22 23:15 TSH 5.66 uIU/mL (0.27-4.20) H 02/19/22 23:15 Urine Color Yellow (Yellow) 02/20/22 01:02 Urine Appearance Clear (CLEAR) 02/20/22 01:02 Urine pH 5 (5-7) 02/20/22 01:02 Ur Specific [place] 1.020 (1.005-1.030) 02/20/22 01:02 Urine Protein Neg (Negative) 02/20/22 01:02 Urine Glucose (UA) Norm (Normal) 02/20/22 01:02 Urine Ketones Negative (Negative) 02/20/22 01:02 Urine Blood Neg (Negative) 02/20/22 01:02 Urine Nitrate Negative (Negative) 02/20/22 01:02 Urine Bilirubin Neg (Negative) 02/20/22 01:02 Urine Urobilinogen 1 mg/dL (Negative) H 02/20/22 01:02 Ur Leukocyte Esterase Negative (Negative) 02/20/22 01:02 Salicylates < 0.3 mg/dL (3-10) L 02/19/22 23:15 Urine Opiates Screen Negative ng/mL (Negative) 02/20/22 01:02 Acetaminophen < 5.0 ug/mL (10-30) L 02/19/22 23:15 Ur Barbiturates Screen Negative ng/mL (Negative) 02/20/22 01:02 Ur Phencyclidine Scrn Negative ng/mL (Negative) 02/20/22 01:02 Ur Amphetamines Screen Negative ng/mL (Negative) 02/20/22 01:02 U Benzodiazepines Scrn Negative ng/mL (Negative) 02/20/22 01:02 Urine Cocaine Screen Negative ng/mL (Negative) 02/20/22 01:02 U Marijuana (THC) Screen Negative ng/mL (Negative) 02/20/22 01:02 Coronavirus 229E (PCR) Not detected (NOT DETECT) 02/19/22 23:01 SARS-CoV-2 (PCR) Not detected (NOT DETECT) 02/19/22 23:01 Discharge Plan Discharge Patient Disposition: Home Clinical Impression: Outbursts of anger Condition: Stable Prescriptions: No Action tamsulosin [Flomax] 0.4 mg capsule 0.4 mg PO DAILY 0RF fluoxetine [Prozac] 20 mg capsule 20 mg PO .morning Qty: 30 6RF lisinopril 40 mg tablet 40 mg PO DAILY 30 Days Qty: 30 3RF amlodipine 10 mg Tablet 10 mg PO DAILY Qty: 30 0RF aspirin 81 mg Tablet,Delayed Release (Dr/Ec) 81 mg PO DAILY Qty: 30 0RF clopidogrel 75 mg Tablet 75 mg PO DAILY Qty: 30 0RF sildenafil 50 mg tablet See Rx Instructions .ROUTE .COMPLEX 0RF Rx Instructions: 50 mg orally PER DIRECTIONS ON BOTTLE chlorthalidone 25 mg tablet 25 mg PO QAM 0RF Discharge Orders: Discharge ED (Routine); Ordered 02/21/22 Ordered By: Destin Romero Referrals: Hira Vasquez MD [Primary Care Provider] - 1-3 days Patient Instructions: Depression in Older Adults (ED) Activity Restrictions/Additional Instructions: Return for worsening symptoms, including any thourghts wishes or actions of self-harm. Follow up with your doctor. Also follow the recommendations given by psychiatry. Coding Level of Care Code ED Truck Engine Assembler for Chg Fwd Exam Comprehensive Documented by User: Destin Romero, 02/21/22 21:38 HPI - Psych General: Chief Complaint: Psychiatric Symptoms Stated Complaint: 96 hour hold Time Seen by Provider: 02/19/22 22:46 PFS ED PFSH: Medical History Altered mental status BPH (benign prostatic hyperplasia) Bradycardia CVA (cerebral vascular accident) Depression Displaced fracture of distal end of radius Fall History of CVA with residual deficit Hypertension Major depressive disorder, recurrent, severe with psychotic symptoms Nicotine dependence, cigarettes, uncomplicated Non compliance w medication regimen Psychiatric care Surgical History H/O hand surgery -right hand History of surgery on right wrist Family History Grandfather Stroke Social History Smoking and tobacco status: current every day smoker cigarettes Packs smoked per day: 1 Alcohol intake: never Household members: spouse Marital status: 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 Course Vital Signs: Vital signs: Vital Signs Temperature 98.1 F 02/21/22 16:00 Pulse Rate 61 02/21/22 19:49 Respiratory Rate 22 H 02/21/22 19:49 Blood Pressure 111/75 02/21/22 19:49 Pulse Oximetry 98 02/21/22 19:49 MDM - Psych Medical Decision Making This patient was signed out to myself Dr. Alas from Dr. Ordoñez at 0600 currently waiting on improvement to the patient potassium level prior to [facility] excepting him patient is underneath a clinical hold 96-hour hold per affidavits filled out by family and . Patient has had some ongoing issues with aggression as well as hallucinations apparently progressed getting worse over the last several weeks. Currently lately and has pending excepted the patient pending a potassium level greater than 3.4 currently it is at 3.1. Patient was provided oral potassium supplementation we will continue to follow with the anticipation acceptance at [facility] and also consider other options. Patient remained in stable condition this time no additional needs or concerns noted. Notified by nursing staff that likely does not want accept the patient at this time we are attempting to find other places for placement at this time. Patient will require [facility]. The patient's daily home meds were ordered. 02/21/2022 21:32. 71-year-old gentleman who has been in the emergency department for 46 hours at this point. He has been medically cleared. Psychiatrically, he has been evaluated by our psychiatrist. His 96-hour hold has been rescinded by psychiatry, and the patient will be allowed discharge. Discharge orders will be written. Outpatient follow-up. Please see the psychiatrist's consult note for further details. Lab Data : 02/19/22 23:15 02/20/22 07:29 Radiology Impressions Chest X-Ray 02/19/22 22:46 IMPRESSION: No acute findings. Head CT 02/19/22 22:51 IMPRESSION: 1. No acute intracranial abnormality. 2. Lacunar infarct in the left zeyad stable from comparison. Laboratory Results WBC 5.4 10^3/uL (4.0-10.0) 02/19/22 23:15 RBC 4.42 10^6/uL (4.1-5.3) 02/19/22 23:15 Hgb 14.2 g/dL (11.7-16.6) 02/19/22 23:15 Hct 41.2 % (42.0-52.0) L 02/19/22 23:15 MCV 93.2 fl (80-94) 02/19/22 23:15 MCH 32.1 pg (28.0-34.0) 02/19/22 23:15 MCHC 34.5 g/dL (30.0-36.0) 02/19/22 23:15 RDW 13.2 % (12.1-15.1) 02/19/22 23:15 Plt Count 207 10^3/cmm (130-400) 02/19/22 23:15 MPV 11.7 fL (7.4-10.4) H 02/19/22 23:15 Neut % (Auto) 48.1 % 02/19/22 23:15 Lymph % (Auto) 38.4 % 02/19/22 23:15 [place] % (Auto) 11.6 % 02/19/22 23:15 Eos % (Auto) 1.3 % 02/19/22 23:15 Baso % (Auto) 0.4 % 02/19/22 23:15 Neut # (Auto) 2.62 10^3/uL (1.8-7.7) 02/19/22 23:15 Lymph # (Auto) 2.1 10^3/uL (0.8-4.8) 02/19/22 23:15 [place] # (Auto) 0.6 10^3/uL (0.2-0.9) 02/19/22 23:15 Eos # (Auto) 0.1 10^3/uL (0.0-0.8) 02/19/22 23:15 Baso # (Auto) 0.0 10^3/uL (0.0-0.1) 02/19/22 23:15 Nucleated RBC % (auto) 0 % 02/19/22 23:15 Nucleated RBCs # 0.0 /100WBC 02/19/22 23:15 Sodium 137 mmol/L (136-145) 02/19/22 23:15 Potassium 3.8 mmol/L (3.5-5.1) 02/20/22 07:29 Chloride 98 mmol/L (98-107) 02/19/22 23:15 Carbon Dioxide 25 mmol/L (22-29) 02/19/22 23:15 Anion Gap 17.1 (5-19) 02/19/22 23:15 BUN 19 mg/dL (8-23) 02/19/22 23:15 Creatinine 1.1 mg/dL (0.7-1.2) 02/19/22 23:15 GFR Calculation Not Reportable 02/19/22 23:15 Glucose 87 mg/dL (65-115) 02/19/22 23:15 Calculated Osmolality 286 mOsm/kg (285-295) 02/19/22 23:15 Calcium 10.1 mg/dL (8.5-10.5) 02/19/22 23:15 Total Bilirubin 0.4 mg/dL (0.15-1.2) 02/19/22 23:15 AST 22 U/L (0-40) 02/19/22 23:15 ALT 17 U/L (0-41) 02/19/22 23:15 Alkaline Phosphatase 87 IU/L (40-130) 02/19/22 23:15 Total Protein 7.3 g/dL (6.6-8.7) 02/19/22 23:15 Albumin 4.7 g/dL (3.5-5.2) 02/19/22 23:15 Globulin 2.6 g/dL (1.3-4.6) 02/19/22 23:15 TSH 5.66 uIU/mL (0.27-4.20) H 02/19/22 23:15 Urine Color Yellow (Yellow) 02/20/22 01:02 Urine Appearance Clear (CLEAR) 02/20/22 01:02 Urine pH 5 (5-7) 02/20/22 01:02 Ur Specific [place] 1.020 (1.005-1.030) 02/20/22 01:02 Urine Protein Neg (Negative) 02/20/22 01:02 Urine Glucose (UA) Norm (Normal) 02/20/22 01:02 Urine Ketones Negative (Negative) 02/20/22 01:02 Urine Blood Neg (Negative) 02/20/22 01:02 Urine Nitrate Negative (Negative) 02/20/22 01:02 Urine Bilirubin Neg (Negative) 02/20/22 01:02 Urine Urobilinogen 1 mg/dL (Negative) H 02/20/22 01:02 Ur Leukocyte Esterase Negative (Negative) 02/20/22 01:02 Salicylates < 0.3 mg/dL (3-10) L 02/19/22 23:15 Urine Opiates Screen Negative ng/mL (Negative) 02/20/22 01:02 Acetaminophen < 5.0 ug/mL (10-30) L 02/19/22 23:15 Ur Barbiturates Screen Negative ng/mL (Negative) 02/20/22 01:02 Ur Phencyclidine Scrn Negative ng/mL (Negative) 02/20/22 01:02 Ur Amphetamines Screen Negative ng/mL (Negative) 02/20/22 01:02 U Benzodiazepines Scrn Negative ng/mL (Negative) 02/20/22 01:02 Urine Cocaine Screen Negative ng/mL (Negative) 02/20/22 01:02 U Marijuana (THC) Screen Negative ng/mL (Negative) 02/20/22 01:02 Coronavirus 229E (PCR) Not detected (NOT DETECT) 02/19/22 23:01 SARS-CoV-2 (PCR) Not detected (NOT DETECT) 02/19/22 23:01 Discharge Plan Discharge Patient Disposition: Home Clinical Impression: Outbursts of anger Condition: Stable Prescriptions: No Action tamsulosin [Flomax] 0.4 mg capsule 0.4 mg PO DAILY 0RF fluoxetine [Prozac] 20 mg capsule 20 mg PO .morning Qty: 30 6RF lisinopril 40 mg tablet 40 mg PO DAILY 30 Days Qty: 30 3RF amlodipine 10 mg Tablet 10 mg PO DAILY Qty: 30 0RF aspirin 81 mg Tablet,Delayed Release (Dr/Ec) 81 mg PO DAILY Qty: 30 0RF clopidogrel 75 mg Tablet 75 mg PO DAILY Qty: 30 0RF sildenafil 50 mg tablet See Rx Instructions .ROUTE .COMPLEX 0RF Rx Instructions: 50 mg orally PER DIRECTIONS ON BOTTLE chlorthalidone 25 mg tablet 25 mg PO QAM 0RF Discharge Orders: Discharge ED (Routine); Ordered 02/21/22 Ordered By: Destin Romero Referrals: Hira Vasquez MD [Primary Care Provider] - 1-3 days Patient Instructions: Depression in Older Adults (ED) Activity Restrictions/Additional Instructions: Return for worsening symptoms, including any thourghts wishes or actions of self-harm. Follow up with your doctor. Also follow the recommendations given by psychiatry. Coding Level of Care Code ED Truck Engine Assembler for Shai Fwd Exam Comprehensive
[2022-02-19 23:27] LABS: Basophils % 0.4 %; Eosinophils # 0.1 10^3/uL (0.0-0.8); Eosinophils % 1.3 %; Hematocrit 41.2 % (42.0-52.0); Hemoglobin 14.2 g/dL (11.7-16.6); Lymphocytes # 2.1 10^3/uL (0.8-4.8); Lymphocytes % 38.4 %; Mean Corpuscular HGB Conc 34.5 g/dL (30.0-36.0); Mean Corpuscular Hemoglobin 32.1 pg (28.0-34.0); Mean Corpuscular Volume 93.2 fl (80-94); Mean Platelet Volume 11.7 fL (7.4-10.4); Monocytes # 0.6 10^3/uL (0.2-0.9); Monocytes % 11.6 %; Neutrophils # 2.62 10^3/uL (1.8-7.7); Neutrophils % 48.1 %; Nucleated Red Blood Cells % 0 %; Platelet Count 207 10^3/cmm (130-400); Red Blood Count 4.42 10^6/uL (4.1-5.3); Red Cell Distribution Width 13.2 % (12.1-15.1); White Blood Count 5.4 10^3/uL (4.0-10.0)
[2022-02-19 23:45] VITALS: BP 170/102; PULSE 73; RESP 17; O2SAT 97
[2022-02-19 23:53] LABS: Alanine Aminotransferase 17 U/L (0-41); Albumin Level 4.7 g/dL (3.5-5.2); Alkaline Phosphatase 87 IU/L (40-130); Anion Gap 17.1 (5-19); Aspartate Amino Transferase 22 U/L (0-40); Blood Urea Nitrogen 19 mg/dL (8-23); Calcium 10.1 mg/dL (8.5-10.5); Carbon Dioxide 25 mmol/L (22-29); Chloride 98 mmol/L (98-107); Globulin 2.6 g/dL (1.3-4.6); Glucose 87 mg/dL (65-115); Osmolality Calculated 286 mOsm/kg (285-295); Potassium 3.1 mmol/L (3.5-5.1); Sodium 137 mmol/L (136-145); Thyroid Stimulating Hormone 5.66 uIU/mL (0.27-4.20); Total Bilirubin 0.4 mg/dL (0.15-1.2); Total Protein 7.3 g/dL (6.6-8.7)
[2022-02-19 23:58] LABS: Acetaminophen < 5.0 ug/mL (10-30); Salicylate < 0.3 mg/dL (3-10)
[2022-02-20 01:08] LABS: Adenovirus Not Detected (NOT DETECT); Chlamydia Pneumoniae Not Detected (NOT DETECT); Coronavirus 229E,HKU1,NL63,OC4 Not Detected (NOT DETECT); Human Metapneumovirus Not Detected (NOT DETECT); Human Rhinovirus/Enterovirus Not Detected (NOT DETECT); Influenza A Not Detected (NOT DETECT); Influenza A H1 Not Detected (NOT DETECT); Influenza A H1-2009 Not Detected (NOT DETECT); Influenza A H3 Not Detected (NOT DETECT); Influenza B Not Detected (NOT DETECT); Mycoplasma Pneumoniae Not Detected (NOT DETECT); Parainfluenza Virus Type 1 Not Detected (NOT DETECT); Parainfluenza Virus Type 2 Not Detected (NOT DETECT); Parainfluenza Virus Type 3 Not Detected (NOT DETECT); Parainfluenza Virus Type 4 Not Detected (NOT DETECT); Respiratory Syncytial Virus A Not Detected (NOT DETECT); Respiratory Syncytial Virus B Not Detected (NOT DETECT); SARS-COV-2 Not Detected (NOT DETECT)
[2022-02-20 01:08] LABS: Add Urine Microscopic? NO; Charge for UA Resulting for Rev
[2022-02-20 01:10] LABS: Bilirubin Urine Neg (Negative); Blood Urine Neg (Negative); Glucose Urine UA Norm (Normal); Ketones Urine Negative (Negative); Leukocyte Esterase Urine Negative (Negative); Nitrate Urine Negative (Negative); Protein Urine Neg (Negative); Urine Appearance Clear (CLEAR); Urine Color Yellow (Yellow); Urobilinogen Urine 1 mg/dL (Negative); pH Urine 5 (5-7)
[2022-02-20 01:37] LABS: Amphetamines Screen Urine Negative (Negative); Barbiturates Screen Urine Negative (Negative); Benzodiazepines Screen Urine Negative (Negative); Cocaine Screen Urine Negative (Negative); Opiate Screen Urine Negative (Negative); PCP Screen Urine Negative (Negative); THC Screen Urine Negative (Negative)
[2022-02-20] MEDS: potassium chloride ER 20 mEq Tablet 60 MEQ PO (04:25)
--- NOTE | 2022-02-20 07:21 | PC.NURSE ---
shift report received from Oxana Mike RN. Care assumed. Pt resting in bed with eyes closed, resp even and unlabored. 1:1 sitter present and within line of sight.
--- NOTE | 2022-02-20 07:25 | PC.NURSE ---
Report received from BHARTI Daigle. Pt resting in bed with eyes closed, resp even and unlabored. 1:1 sitter present and within line of sight.
[2022-02-20 07:33] VITALS: BP 103/58; PULSE 58; RESP 20; O2SAT 97
[2022-02-20 08:11] LABS: Potassium 3.8 mmol/L (3.5-5.1)
--- NOTE | 2022-02-20 08:42 | PC.PHAR ---
PT UNABLE TO VERIFY. COULD NOT REACH BY PHONE. [facility] MEDS ON LIST ARE ALL FILLED AND PICKED UP.
[2022-02-20] MEDS: fluoxetine 20 mg Capsule PO (15:40)
[2022-02-20] MEDS: lisinopril 20 mg Tablet 40 MG PO (15:40)
[2022-02-20] MEDS: aspirin 81 mg Chew Tablet PO (15:41)
[2022-02-20] MEDS: chlorthalidone 25 mg Tablet PO (15:41)
[2022-02-20] MEDS: tamsulosin 0.4 mg Capsule PO (15:42)
[2022-02-20] MEDS: amlodipine 10 mg Tablet PO (15:42)
[2022-02-20] MEDS: clopidogrel 75 mg Tablet PO (15:42)
[2022-02-20 15:45] VITALS: BP 152/71; PULSE 64; RESP 16
[2022-02-20] MEDS: fixodent 39 gm Tube 1 APPLIC DENTAL (15:51)
--- NOTE | 2022-02-20 16:25 | PC.NURSE ---
Vital signs changed to Q4h on verbal order of Dr. Alas
[2022-02-20 19:00] VITALS: BP 103/63; PULSE 66; RESP 18; O2SAT 97
--- NOTE | 2022-02-20 20:39 | PC.NURSE ---
Brought in hospital bed for pt comfort. Pt responding appropriately
[2022-02-21] VITALS (7 sets, daily range): BP systolic 97–126; BP diastolic 39–75; PULSE 50–74; RESP 16–22; TEMP 36.6–36.7; O2SAT 95–98
--- NOTE | 2022-02-21 06:06 | PC.NURSE ---
[facility] will accept patient this morning after they have discharges.
--- NOTE | 2022-02-21 09:07 | PC.NURSE ---
patient belongings removed and placed in filing cabinet outside of room in drawer 2. Patient has 1 pair of blue jeans, a dark sweatshirt with undershirt, a belt, 1 pair of tennis shoes, 1 cell phone with case, and 1 wallet. All items bagged and labeled with patients sticker
== END 2022-02-21 21:43 | disposition home or self-care (01) ==
PROVIDERS: Emergency Provider Emergency Medicine; PCP Family Medicine
DX: R45.4 Irritability and anger (principal); F17.210 Nicotine dependence, cigarettes, uncomplicated; Z79.82 Long term (current) use of aspirin; Z79.02 Long term (current) use of antithrombotics/antiplatelets; Z86.73 Personal history of transient ischemic attack (TIA), and cerebral infarction without residual deficits
CPT/HCPCS: 36415; 70450; 71045; 80053; 80306; 80307; 81003; 84132; 84443; 85025; 87635; 93005; 99285

== ENCOUNTER → 2022-04-09 15:34 | Outpatient (BNVA) | payer MEDICARE, SELFPAY | PROVIDERS: PCP Family Medicine; Visit Provider Nurse Practitioner Psychiatric/Mental Health | DX: F33.3 Major depressive disorder, recurrent, severe with psychotic symptoms (principal); F17.210 Nicotine dependence, cigarettes, uncomplicated; R13.10 Dysphagia, unspecified; Z91.14 Patient's other noncompliance with medication regimen; I69.30 Unspecified sequelae of cerebral infarction; Z03.89 Encounter for observation for other suspected diseases and conditions ruled out | CPT/HCPCS: 99214 ==

== ENCOUNTER 2022-07-31 06:00 | Outpatient (RCR) | payer MEDICARE, SELFPAY | END 2022-08-01 23:59 | disposition home or self-care (01) | LOC: TR3 06:00 | PROVIDERS: PCP Family Medicine; Visit Provider Family Medicine | DX: I69.328 Other speech and language deficits following cerebral infarction (principal); I69.351 Hemiplegia and hemiparesis following cerebral infarction affecting right dominant side | CPT/HCPCS: 92523; 97163 ==

== ENCOUNTER 2022-08-28 12:25 | Emergency (ER) | payer MEDICARE, SELFPAY ==
--- NOTE | 2022-08-28 12:31 | CT_ITS ---
WS: [id number] CT HEAD NONCONTRAST HISTORY: SYMPTOMS OF ACUTE STROKE, right-sided weakness. TECHNIQUE: Contiguous axial imaging performed through the brain in 2.5 mm imaging. Bone and soft tiss ue windows. Sagittal and coronal reformats reviewed. All CT scans at [facility] use at least one of these dose optimization techniques: automated exposure control; mA and/or kV adjustment per pa tient size (includes targeted exams where dose is matched to clinical indication); or iterative recon struction. DLP: 1062.18 mGy-cm. COMPARISON: 02/19/2022 No acute intracranial hemorrhage, midline shift or mass effect. Mild atrophy and small vessel ischemic disease. Numerous small bilateral lacunar infarcts. Lacunar in farct in the posterior limb of the LEFT internal capsule. Smaller lacunar infarcts in the basal gangl ia and also within the LEFT zeyad. Ventricles: Normal size with no hydrocephalus. No inferior displacement of cerebellar tonsils. Paranasal sinuses: As visualized are clear. Mastoid air cells: Well pneumatized. Calvarium and scalp: Skull is intact with no soft tissue edema or swelling. CT/CT head thrombolytic [id number] IMPRESSION: 1. No acute intracranial hemorrhage or edema. 2. Numerous small bilateral lacunar infarcts. Similar to as compared to 022. 3. Mild atrophy and small vessel ischemic disease.
--- NOTE | 2022-08-28 12:32 | ECG_ITS ---
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 Measurements Intervals [place] Rate: 55 P: 47 MS: 179 QRS: 34 QRSD: 81 T: 47 QT: 411 QTc: 393 Interpretive Statements SINUS BRADYCARDIA WITH OCCASIONAL SUPRAVENTRICULAR PREMATURE COMPLEXES MODERATE ST DEPRESSION [0.05+ mV ST DEPRESSION] Compared to ECG 02/19/2022 23:15:43 Sinus rhythm no longer present Sinus arrhythmia no longer present ST (T wave) deviation still present Electronically Signed On 08-28-2022 18:04:09 CDT by Trish Fountain M.D. [id number]
[2022-08-28 12:33] VITALS: BMI 25.4
--- NOTE | 2022-08-28 12:33 | W.ED.NEUROSD ---
HPI - Neuro Symptoms/Deficit General: Chief Complaint: Neuro Symptoms/Deficit Stated Complaint: stroke like symptoms Time Seen by Provider: 08/28/22 12:32 Source: patient Mode of arrival: EMS History of Present Illness: 72-year-old male presents emergency room with complaints of right-sided weakness. He has a history of previous stroke with right-sided deficit and speech deficit. Initially when I seen him does a stroke score to be between 5 and 7 however on reevaluated he was 5 but all of his deficits seem to be based on previous residual effects from stroke. He is otherwise awake and alert answering questions well. [facility] on-call stroke call was consulted. Onset of his symptoms was associated with anxiety while at the eye doctor he became sweaty and tachypneic. There is no seizure activity and no loss of consciousness no chest pain Onset (ago): minute(s) Last Observed Normal: 11:27 Timing confirmed by: spouse Location: speech, right arm and right leg Severity: moderate Quality: weak Relieving factors: time Exacerbating factors: none Context: sudden onset Associated symptoms: Reports diaphoresis and weakness; Deny chest pain, cough, fevers/chills, headache(s), anorexia, malaise, nausea, seizures, short of breath, syncope, tingling, vertigo or vomiting Treatments Prior to Arrival: none Review of Systems Const: Reports: diaphoresis; Denies: fever(s), chills, fatigue or malaise ENMT: Denies: throat pain, ear or mastoid pain, nasal discharge or nasal congestion Card: Denies: chest pain or syncope Resp: Denies: dyspnea, productive cough or non-productive cough GI: Denies: abdominal pain, nausea or vomiting : Denies: flank pain, difficulty urinating, dysuria, urinary frequency or urinary urgency Skin/Breast: Denies: rash or pruritus Neuro: Denies: headache(s) or vertigo PFSH ED PFSH: Medical History Altered mental status BPH (benign prostatic hyperplasia) Bradycardia CVA (cerebral vascular accident) Depression Displaced fracture of distal end of radius Fall History of CVA with residual deficit Hypertension Major depressive disorder, recurrent, severe with psychotic symptoms Nicotine dependence, cigarettes, uncomplicated Non compliance w medication regimen Psychiatric care Surgical History H/O hand surgery -right hand History of surgery on right wrist Family History Grandfather Stroke Social History Smoking and tobacco status: current every day smoker cigarettes Packs smoked per day: 1 Alcohol intake: never Household members: spouse Marital status: 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 NIH stroke score NIHSS: Level Of Consciousness - 1a: 0 Level Of Consciousness Questions - 1b: Both Correct Level Of Consciousness Commands - 1c: Both Correct Best Gaze - 2: Normal Visual Villegas - 3: No Visual Loss Facial Palsy - 4: Normal Motor Arm Right - 5: Drift Motor Arm Left - 5: No Drift Motor Leg Right - 6: Drift Motor Leg Left - 6: No Drift Limb Ataxia - 7: Present In One Limb Sensory - 8: Normal Best Language - 9: Mild/Moderate Aphasia Dysarthia - 10: Mild/Moderate Dysarthia Extinction And Inattention - 11: 0 Score: Total Score: 5 Physical Exam Const: COMMON NORMALS: no acute distress GENERAL APPEARANCE: cooperative and comfortable ORIENTATION/CONSCIOUSNESS: Yes awake, Yes oriented to person, Yes oriented to place and Yes oriented to time HENMT: COMMON NORMALS: normocephalic, atraumatic and hearing grossly normal bilaterally HEAD & SCALP: normocephalic and atraumatic Eye: COMMON NORMALS: Equal, round and reactive pupils present, EOMs intact bilaterally, conjunctivae normal and no scleral icterus CONJUNCTIVA: Yes conjunctivae normal PUPIL: Yes Equal, round and reactive pupils present Neck/C-Spine: COMMON NORMALS: full ROM, no lymphadenopathy and supple Resp: COMMON NORMALS: normal respiratory effort, No retractions, No use of accessory muscles and clear to auscultation bilaterally AUSCULTATION: clear to auscultation bilaterally Cardio: COMMON NORMALS: regular rate, regular rhythm and No murmurs present (Cardio) RATE: regular rate RHYTHM: regular rhythm GI: COMMON NORMALS: Soft to palpation and No hepatosplenomegaly present AUSCULTATION: Yes normoactive bowel sounds PALPATION: Yes Soft to palpation, No Tenderness to palpation present (GI), No Guarding due to palpation present (GI) and Yes No hepatosplenomegaly present Extremity: COMMON NORMALS: normal to inspection, capillary refill normal, no clubbing, cyanosis or edema, no calf tenderness and no pedal edema Neuro: SENSORIUM/ORIENTATION: Yes oriented to person, Yes oriented to place and Yes oriented to time Skin: COMMON NORMALS: no rashes or lesions noted GENERAL SKIN EXAM: no rashes or lesions noted Course Vital Signs: Vital signs: Vital Signs Pulse Rate 87 08/28/22 14:48 Blood Pressure 122/81 08/28/22 14:48 Pulse Oximetry 96 08/28/22 14:48 MDM - Neuro Symptoms/Deficit Medical Decision Making Patient symptoms have completely resolved. He described feeling warm and sweaty. I think he had more of an anxiety attack. His symptoms are resolved he would like to go home. His CT did not show anything acute all of his stroke score is attributable to his previous stroke. Neurology seen him and agreed he is not a candidate for tPA and did not feel that any further evaluation need to be done at this time. We observed him for time he had no recurrence of his symptoms he would like to go home have him follow-up with his primary care doctor return if he has further problems. Medical Records I reviewed the patient's medical records. Lab Data I reviewed the patient's lab results. : 08/28/22 12:35 08/28/22 12:[address] 08/28/22 12:31 IMPRESSION: 1. No acute intracranial hemorrhage or edema. 2. Numerous small bilateral lacunar infarcts. Similar to as compared to 02/19/2022. 3. Mild atrophy and small vessel ischemic disease. Laboratory Results WBC 13.7 10^3/uL (4.0-10.0) H 08/28/22 12:35 RBC 4.67 10^6/uL (4.1-5.3) 08/28/22 12:35 Hgb 15.3 g/dL (11.7-16.6) 08/28/22 12:35 Hct 46.7 % (42.0-52.0) 08/28/22 12:35 MCV 100.0 fl (80-94) H 08/28/22 12:35 MCH 32.8 pg (28.0-34.0) 08/28/22 12:35 MCHC 32.8 g/dL (30.0-36.0) 08/28/22 12:35 RDW 13.0 % (12.1-15.1) 08/28/22 12:35 Plt Count 217 10^3/cmm (130-400) 08/28/22 12:35 MPV 12.5 fL (7.4-10.4) H 08/28/22 12:35 Neut % (Auto) 76.9 % 08/28/22 12:35 Lymph % (Auto) 14.3 % 08/28/22 12:35 [place] % (Auto) 8.0 % 08/28/22 12:35 Eos % (Auto) 0.1 % 08/28/22 12:35 Baso % (Auto) 0.3 % 08/28/22 12:35 Neut # (Auto) 10.55 10^3/uL (1.8-7.7) H 08/28/22 12:35 Lymph # (Auto) 2.0 10^3/uL (0.8-4.8) 08/28/22 12:35 [place] # (Auto) 1.1 10^3/uL (0.2-0.9) H 08/28/22 12:35 Eos # (Auto) 0.0 10^3/uL (0.0-0.8) 08/28/22 12:35 Baso # (Auto) 0.0 10^3/uL (0.0-0.1) 08/28/22 12:35 Nucleated RBC % (auto) 0 % 08/28/22 12:35 Nucleated RBCs # 0.0 /100WBC 08/28/22 12:35 PT 14.00 SECONDS (12.1-14.9) 08/28/22 12:35 INR 1.05 (0.8-1.2) 08/28/22 12:35 APTT 32.6 SECONDS (23.9-36.7) 08/28/22 12:35 Sodium 133 mmol/L (136-145) L 08/28/22 12:35 Potassium 4.1 mmol/L (3.5-5.1) 08/28/22 12:35 Chloride 93 mmol/L (98-107) L 08/28/22 12:35 Carbon Dioxide 27 mmol/L (22-29) 08/28/22 12:35 Anion Gap 17.1 (5-19) 08/28/22 12:35 BUN 17 mg/dL (8-23) 08/28/22 12:35 Creatinine 1.7 mg/dL (0.7-1.2) H 08/28/22 12:35 GFR Calculation Not Reportable 08/28/22 12:35 Glucose 123 mg/dL (65-115) H 08/28/22 12:35 POC Glucose 119 mg/dL (70-110) H 08/28/22 12:33 Calculated Osmolality 279 mOsm/kg (285-295) L 08/28/22 12:35 Calcium 10.1 mg/dL (8.5-10.5) 08/28/22 12:35 Total Bilirubin 1.0 mg/dL (0.15-1.2) 08/28/22 12:35 AST 14 U/L (0-40) 08/28/22 12:35 ALT 15 U/L (0-41) 08/28/22 12:35 Alkaline Phosphatase 81 U/L (40-130) 08/28/22 12:35 Total Protein 7.9 g/dL (6.6-8.7) 08/28/22 12:35 Albumin 4.8 g/dL (3.5-5.2) 08/28/22 12:35 Globulin 3.1 g/dL (1.3-4.6) 08/28/22 12:35 Discharge Plan Discharge Patient Disposition: Home Clinical Impression: 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, Major depression, chronic, Hypertension, Cigarette smoker, History of CVA with residual deficit Condition: Stable Prescriptions: No Action lisinopril 40 mg tablet 40 mg PO DAILY 30 Days Qty: 30 3RF tamsulosin [Flomax] 0.4 mg capsule 0.4 mg PO DAILY amlodipine 10 mg Tablet 10 mg PO DAILY Qty: 30 0RF aspirin 81 mg Tablet,Delayed Release (Dr/Ec) 81 mg PO DAILY Qty: 30 0RF clopidogrel 75 mg Tablet 75 mg PO DAILY Qty: 30 0RF sildenafil 50 mg tablet See Rx Instructions .ROUTE .COMPLEX Rx Instructions: 50 mg orally PER DIRECTIONS ON BOTTLE chlorthalidone 25 mg tablet 25 mg PO QAM atorvastatin 40 mg tablet 40 mg PO DAILY metoprolol succinate 25 mg tablet extended release 24 hr 25 mg PO DAILY Prozac 20 mg capsule 20 mg PO DAILY Discharge Orders: Discharge ED (Routine); Ordered 08/28/22 Ordered By: Eric Burton Referrals: Hira Vasquez MD [Primary Care Provider] - Discharge Diet: Usual diet Discharge Activity: Increase activity as tolerated Patient Instructions: Opioid Safety, Pain Management Activity Restrictions/Additional Instructions: Follow-up with your doctor within the next week. If any recurrence of symptoms recheck continue all previously prescribed medications. Coding Level of Care Code ED Jewelry Engraver for Shai Irby
[2022-08-28 12:35] LABS: Glucose Point of Care 119 mg/dL (70-110)
[2022-08-28 12:40] LABS: Basophils % 0.3 %; Eosinophils % 0.1 %; Hematocrit 46.7 % (42.0-52.0); Hemoglobin 15.3 g/dL (11.7-16.6); Lymphocytes % 14.3 %; Mean Corpuscular HGB Conc 32.8 g/dL (30.0-36.0); Mean Corpuscular Hemoglobin 32.8 pg (28.0-34.0); Mean Platelet Volume 12.5 fL (7.4-10.4); Monocytes # 1.1 10^3/uL (0.2-0.9); Neutrophils # 10.55 10^3/uL (1.8-7.7); Neutrophils % 76.9 %; Nucleated Red Blood Cells % 0 %; Platelet Count 217 10^3/cmm (130-400); Red Blood Count 4.67 10^6/uL (4.1-5.3); White Blood Count 13.7 10^3/uL (4.0-10.0)
[2022-08-28 12:42] VITALS: BP 122/80
[2022-08-28 12:52] LABS: INR 1.05 (0.8-1.2)
[2022-08-28 12:53] LABS: Partial Thromboplastin Time 32.6 SECONDS (23.9-36.7)
[2022-08-28 13:01] LABS: Alanine Aminotransferase 15 U/L (0-41); Albumin Level 4.8 g/dL (3.5-5.2); Alkaline Phosphatase 81 U/L (40-130); Anion Gap 17.1 (5-19); Aspartate Amino Transferase 14 U/L (0-40); Blood Urea Nitrogen 17 mg/dL (8-23); Calcium 10.1 mg/dL (8.5-10.5); Carbon Dioxide 27 mmol/L (22-29); Chloride 93 mmol/L (98-107); Globulin 3.1 g/dL (1.3-4.6); Glucose 123 mg/dL (65-115); Osmolality Calculated 279 mOsm/kg (285-295); Potassium 4.1 mmol/L (3.5-5.1); Sodium 133 mmol/L (136-145); Total Protein 7.9 g/dL (6.6-8.7)
--- NOTE | 2022-08-28 13:11 | PC.PHAR ---
PT HAS ALL MEDICATIONS LISTED ON MED LIST- MOST ARE OLD/OUTDATED- PT AND PTS STATE PT IS BAD ABOUT TAKING HIS MEDICATIONS - ALSO POURS NEW MED REFILLS INTO OLD BOTTLES MAKING IT HARD TO DETERMINE WHAT IS OLD AND NEW.
[2022-08-28 14:23] VITALS: BP 122/65
[2022-08-28 14:48] VITALS: BP 122/81; PULSE 87; O2SAT 96
== END 2022-08-28 14:49 | disposition home or self-care (01) ==
PROVIDERS: Emergency Provider Family Medicine; PCP Family Medicine
DX: I63.89 Other cerebral infarction (principal); F33.9 Major depressive disorder, recurrent, unspecified; I10 Essential (primary) hypertension; F17.210 Nicotine dependence, cigarettes, uncomplicated; Z86.73 Personal history of transient ischemic attack (TIA), and cerebral infarction without residual deficits; Z79.82 Long term (current) use of aspirin; Z79.02 Long term (current) use of antithrombotics/antiplatelets
CPT/HCPCS: 36416; 70450; 80053; 82962; 85025; 85610; 85730; 93005; 99285

== ENCOUNTER 2022-12-11 10:43 | Outpatient (CLI) | payer MEDICARE, SELFPAY ==
--- NOTE | 2022-12-11 10:52 | CT_ITS ---
WS: [id number] LDCT LUNG CANCER SCREENING TECHNIQUE: Noncontrast CT of the chest with coronal and sagittal reformatted images. CLINICAL INFORMATION: NICOTINE DEPENDENCE,CIGARETTES COMPARISON: None. DLP: 73.51 mGy.cm DIvol: Mean CTDIvol: 1.60 (mGy) All CT scans at [facility] use at least one of these dose optimization techniques: automat ed exposure control; mA and/or kV adjustment per patient size (includes targeted exams where dose is matched to clinical indication); or iterative reconstruction. FINDINGS: No suspicious intraparenchymal pulmonary opacities. A few tiny subcentimeter pulmonary nodu les along the RIGHT major fissure. No acute pulmonary infiltrates. No focal consolidation or pleural fluid. No mediastinal or hilar lymphadenopathy. Chronic anterior wedging midthoracic T7 unchanged. [place] bsegmental atelectasis in the RIGHT middle lobe. Cardiomegaly Prominent ascending thoracic aorta measuring 3.6 cm unchanged. Aortic calcification. Coronary calcifi cation. Adrenal glands are normal. Normal GE junction. CT/CT lung screening [id number] IMPRESSION: LUNG-RADS: 2-Benign Appearance or Behavior FOLLOW UP: 12 Month: Continue annual screening with LDCT
== END 2022-12-11 10:44 | disposition home or self-care (01) ==
LOC: RAD 10:44
PROVIDERS: PCP Family Medicine; Visit Provider Family Medicine
DX: F17.210 Nicotine dependence, cigarettes, uncomplicated (principal)
CPT/HCPCS: 71271

== ENCOUNTER → 2023-08-06 08:24 | Outpatient (BNVA) | payer MEDICARE, SELFPAY | PROVIDERS: PCP Family Medicine; Referring Provider Family Medicine; Visit Provider Internal Medicine | DX: I10 Essential (primary) hypertension (principal); E55.9 Vitamin D deficiency, unspecified; N25.81 Secondary hyperparathyroidism of renal origin; E11.22 Type 2 diabetes mellitus with diabetic chronic kidney disease; N18.9 Chronic kidney disease, unspecified; Z87.442 Personal history of urinary calculi | CPT/HCPCS: 99204 ==

== ENCOUNTER → 2023-11-09 08:41 | Outpatient (BNVA) | payer MEDICARE, SELFPAY | PROVIDERS: PCP Family Medicine; Visit Provider Internal Medicine | DX: N25.81 Secondary hyperparathyroidism of renal origin (principal); E55.9 Vitamin D deficiency, unspecified; E11.22 Type 2 diabetes mellitus with diabetic chronic kidney disease; N18.30 Chronic kidney disease, stage 3 unspecified; I10 Essential (primary) hypertension | CPT/HCPCS: 36415; 80048; 82306; 82310; 83970; 99214 ==

== ENCOUNTER 2024-01-04 13:28 | Outpatient (CLI) | payer OTHER, SELFPAY ==
--- NOTE | 2024-01-04 13:35 | CT_ITS ---
WS: [id number] LDCT LUNG CANCER SCREENING TECHNIQUE: Noncontrast CT of the chest with coronal and sagittal reformatted images. CLINICAL INFORMATION: NICOTINE DEPENDENCE, CIGARETTES COMPARISON: CT 12/11/2022 DLP: 64.99 mGy.cm DIvol: Mean CTDIvol: 1.40 (mGy) All CT scans at [facility] use at least one of these dose optimization techniques: automat ed exposure control; mA and/or kV adjustment per patient size (includes targeted exams where dose is matched to clinical indication); or iterative reconstruction. FINDINGS: A few tiny subcentimeter pulmonary nodules along the RIGHT major fissure unchanged in appearance. No new suspicious pulmonary parenchymal opacities. Subsegmental atelectasis RIGHT middle lobe. No medias tinal or hilar lymphadenopathy. No axillary lymphadenopathy. Cardiomegaly. Prominent ascending thoracic aorta measuring 3.6 cm unchanged. Aortic calcification. Co ronary calcification. Chronic anterior wedging T7 vertebral body. Adrenal glands are normal. Normal G E junction. IMPRESSION: CT/CT lung screening [id number] LUNG-RADS: 2-Benign Appearance or Behavior FOLLOW UP: 12 Month: Continue annual screening with LDCT
== END 2024-01-04 13:29 | disposition home or self-care (01) ==
LOC: RAD 13:30
PROVIDERS: PCP Family Medicine; Visit Provider Family Medicine
DX: Z12.2 Encounter for screening for malignant neoplasm of respiratory organs (principal); R91.8 Other nonspecific abnormal finding of lung field; F17.210 Nicotine dependence, cigarettes, uncomplicated
CPT/HCPCS: 71271

== ENCOUNTER 2024-02-03 06:00 | Outpatient (RCR) | payer OTHER, SELFPAY | END 2024-03-01 23:59 | disposition home or self-care (01) | LOC: TPT 06:00 | PROVIDERS: PCP Family Medicine; Visit Provider Internal Medicine | DX: I69.30 Unspecified sequelae of cerebral infarction (principal) | CPT/HCPCS: 97110; 97163 ==

== ENCOUNTER 2024-03-02 06:00 | Outpatient (RCR) | payer OTHER, SELFPAY | END 2024-04-01 23:59 | disposition home or self-care (01) | LOC: TPT 06:00 | PROVIDERS: PCP Family Medicine; Visit Provider Internal Medicine | DX: I69.30 Unspecified sequelae of cerebral infarction (principal) | CPT/HCPCS: 97110 ==

== ENCOUNTER 2024-04-20 14:06 | Emergency (ER) | payer OTHER, SELFPAY ==
[2024-04-20 14:13] VITALS: BP 206/93; PULSE 54; RESP 16; TEMP 37.1; O2SAT 99
--- NOTE | 2024-04-20 14:17 | ECG_ITS ---
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 Measurements Intervals [place] Rate: 58 P: 58 MA: 162 QRS: 21 QRSD: 88 T: 39 QT: 400 QTc: 394 Interpretive Statements SINUS BRADYCARDIA WITH OCCASIONAL SUPRAVENTRICULAR PREMATURE COMPLEXES Compared to ECG 08/28/2022 12:45:56 ST (T wave) deviation no longer present Electronically Signed On 04-22-2024 13:33:48 CDT by Haile Gonzalez M.D. [id number]
--- NOTE | 2024-04-20 15:51 | PC.NURSE ---
pt on bedside surveillance monitor
--- NOTE | 2024-04-20 15:53 | W.ED.ARRPALP ---
HPI - Arrhythmia/Palpitations General: Chief Complaint: Arrhythmia/Palpitations Stated Complaint: HTN Time Seen by Provider: 04/20/24 15:49 Source: patient Mode of arrival: ambulatory History of Present Illness: 73-year-old male who presents to the emergency room via EMS [facility] with complaints of hypertension blood pressure markedly elevated. Is also moderately bradycardic. Has a history of 2 previous CVAs has significant residual speech deficit that is unchanged. [facility] staff reported to EMS that his speech pattern when they arrived was at his baseline that they are familiar with. Patient denies any symptoms at this time. His blood pressure is markedly elevated at the clinic. He denies any chest pain abdominal pain dizziness headache nausea vomiting or diarrhea lightheadedness vertigo. He did not take his added ibuprofen tensive this morning because he had packed them up for a camping trip. complaint: palpitations Associated symptoms: Deny anxiety, cough, diaphoresis, muscle cramps, nausea, paresthesias, pre-syncope, sense of impending doom, short of breath, syncope or vomiting Review of Systems Const: Denies: fever(s), chills or diaphoresis Card: Denies: chest pain, syncope or pre-syncope Resp: Denies: dyspnea GI: Denies: abdominal pain, nausea or vomiting : Denies: dysuria, urinary frequency or urinary urgency Musc: Denies: neck pain, back pain or muscle cramps Skin/Breast: Denies: rash Psych: Denies: anxiety [facility] ED PFSH: Medical History Psychiatric care Fall Altered mental status Non compliance w medication regimen History of Nicotine dependence, cigarettes, uncomplicated Major depressive disorder, recurrent, severe with psychotic symptoms Bradycardia CVA (cerebral vascular accident) Depression BPH (benign prostatic hyperplasia) History of CVA with residual deficit Hypertension Displaced fracture of distal end of radius Surgical History H/O hand surgery -right hand History of surgery on right wrist Family History Grandfather Stroke Social History Smoking and tobacco/nicotine status: current every day tobacco/nicotine user cigarettes Packs smoked per day: 1 Alcohol intake: never Substance/Drug Use: never Household members: spouse Marital status: 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 Physical Exam Const: COMMON NORMALS: no acute distress GENERAL APPEARANCE: cooperative and comfortable ORIENTATION/CONSCIOUSNESS: Yes awake, Yes oriented to person, Yes oriented to place and Yes oriented to time HENMT: COMMON NORMALS: normocephalic, atraumatic and hearing grossly normal bilaterally HEAD & SCALP: normocephalic and atraumatic Resp: COMMON NORMALS: normal respiratory effort, No retractions, No use of accessory muscles and clear to auscultation bilaterally AUSCULTATION: clear to auscultation bilaterally Cardio: COMMON NORMALS: regular rate, regular rhythm and No murmurs present (Cardio) RATE: regular rate RHYTHM: regular rhythm GI: COMMON NORMALS: Soft to palpation and No hepatosplenomegaly present AUSCULTATION: Yes normoactive bowel sounds PALPATION: Yes Soft to palpation, No Tenderness to palpation present (GI), No Guarding due to palpation present (GI) and Yes No hepatosplenomegaly present Extremity: COMMON NORMALS: normal to inspection, capillary refill normal, no clubbing, cyanosis or edema, no calf tenderness and no pedal edema Neuro: SENSORIUM/ORIENTATION: Yes oriented to person, Yes oriented to place and Yes oriented to time Skin: COMMON NORMALS: no rashes or lesions noted GENERAL SKIN EXAM: no rashes or lesions noted Course Vital Signs: Vital signs: Vital Signs Temperature 98.7 F 04/20/24 14:13 Pulse Rate 54 L 04/20/24 14:13 Respiratory Rate 16 04/20/24 14:13 Blood Pressure 183/95 04/20/24 17:35 Pulse Oximetry 99 04/20/24 14:13 Oxygen Delivery Me thod Room Air 04/20/24 14:13 MDM - Arrhythmia/Palpitations Medical Decision Making Blood pressure improved. At this point I would not decrease any further. Will decrease his metoprolol as he is further bradycardic care add hydralazine 25 p.o. 3 times daily continue his other medications follow-up with his primary care doctor within the next week return if has further problems. Also encouraged him to contact [facility] and reschedule the visit that he ended up missing today because of his elevated blood pressure. Medical Records I reviewed the patient's medical records. Lab Data I reviewed the patient's lab results. No radiology studies performed this visit Discharge Plan Discharge Patient Disposition: Home Clinical Impression: HTN (hypertension) Condition: Stable Prescriptions: New hydralazine 25 mg tablet 25 mg PO TID Qty: 90 0RF Changed metoprolol succinate 25 mg tablet extended release 24 hr 12.5 mg PO DAILY Qty: 15 0RF No Action tamsulosin [Flomax] 0.4 mg capsule 0.4 mg PO DAILY venlafaxine [Effexor XR] 75 mg capsule,extended release 24hr 75 mg PO QAM escitalopram oxalate [Lexapro] 10 mg tablet 10 mg PO .morning Qty: 90 2RF Rx Instructions: Take one tablet every morning lisinopril 40 mg tablet 40 mg PO DAILY cholecalciferol (vitamin D3) 25 mcg (1,000 unit) capsule PO amlodipine 10 mg Tablet 10 mg PO DAILY Qty: 30 0RF aspirin 81 mg Tablet,Delayed Release (Dr/Ec) 81 mg PO DAILY Qty: 30 0RF clopidogrel 75 mg Tablet 75 mg PO DAILY Qty: 30 0RF sildenafil 50 mg tablet See Rx Instructions .ROUTE .COMPLEX Rx Instructions: 50 mg orally PER DIRECTIONS ON BOTTLE chlorthalidone 25 mg tablet 25 mg PO QAM atorvastatin 40 mg tablet 40 mg PO DAILY Discharge Orders: Discharge ED (Routine); Ordered 04/20/24 Ordered By: Eric Burton Referrals: Hira Vasquez MD [Primary Care Provider] - Discharge Diet: Usual diet Discharge Activity: Resume usual activity Patient Instructions: Opioid Safety, Pain Management Activity Restrictions/Additional Instructions: Thank you for choosing [facility] for your healthcare needs today. It is very important that you follow up as instructed or that you return to the Emergency Department should you have concerns or if your condition changes or worsens in any way. You were seen today for elevated blood pressure your blood pressure did not improve with medications given. You are also noted to be quite bradycardic (slow heart rate). Recommend decreasing your metoprolol to half a tablet 12.5 mg once daily. Add hydralazine 25 mg 3 times a day continue all of your other blood pressure medications as previously prescribed. Follow-up with your primary care doctor within the next week. Coding Level of Care Code ED Sounding Device Operator for Shai Irby
[2024-04-20] MEDS: lisinopril 20 mg Tablet 40 MG PO (16:04)
[2024-04-20] MEDS: amlodipine 10 mg Tablet PO (16:05)
[2024-04-20] MEDS: chlorthalidone 25 mg Tablet PO (16:05)
[2024-04-20] MEDS: clopidogrel 75 mg Tablet PO (16:06)
--- NOTE | 2024-04-20 16:07 | PC.NURSE ---
held metoprolol per Dr. Burton due to PT being bradycardic
[2024-04-20 17:35] VITALS: BP 183/95
[2024-04-20 18:14] VITALS: PULSE 50; O2SAT 98
[2024-04-20] MEDS: hyDRALAzine 20 mg/mL INJ 1 mL 10 MG IVP (18:21)
[2024-04-20 18:22] VITALS: BP 183/110
[2024-04-20 18:43] VITALS: BP 194/87
[2024-04-20 18:49] VITALS: BP 146/99
== END 2024-04-20 18:50 | disposition home or self-care (01) ==
PROVIDERS: Emergency Provider Family Medicine; PCP Family Medicine
DX: I10 Essential (primary) hypertension (principal); Z79.02 Long term (current) use of antithrombotics/antiplatelets; Z79.82 Long term (current) use of aspirin; F17.210 Nicotine dependence, cigarettes, uncomplicated; Z86.73 Personal history of transient ischemic attack (TIA), and cerebral infarction without residual deficits
CPT/HCPCS: 93005; 96374; 99284; J0360

== ENCOUNTER → 2024-06-24 11:39 | Outpatient (BNVA) | payer OTHER, SELFPAY | PROVIDERS: PCP Family Medicine; Visit Provider Internal Medicine | DX: N25.81 Secondary hyperparathyroidism of renal origin (principal); E55.9 Vitamin D deficiency, unspecified; E11.22 Type 2 diabetes mellitus with diabetic chronic kidney disease; N18.30 Chronic kidney disease, stage 3 unspecified; E11.9 Type 2 diabetes mellitus without complications; Z86.73 Personal history of transient ischemic attack (TIA), and cerebral infarction without residual deficits | CPT/HCPCS: 36415; 80053; 82306; 82310; 83970; 99214 ==

== ENCOUNTER 2024-09-07 06:00 | Outpatient (RCR) | payer OTHER, SELFPAY | END 2024-10-01 23:59 | disposition home or self-care (01) | LOC: SPT 06:00 | PROVIDERS: Visit Provider Family Medicine | DX: G81.11 Spastic hemiplegia affecting right dominant side (principal); I67.89 Other cerebrovascular disease; R53.1 Weakness | CPT/HCPCS: 97161 ==

== ENCOUNTER 2024-12-16 09:24 | Outpatient (CLI) | payer SELFPAY ==
[2024-12-16 10:32] LABS: Alanine Aminotransferase 18 U/L (0-41); Albumin Level 4.5 g/dL (3.5-5.2); Alkaline Phosphatase 89 U/L (40-130); Aspartate Amino Transferase 12 U/L (0-40); Blood Urea Nitrogen 14 mg/dL (8-23); Calcium 9.5 mg/dL (8.5-10.5); Carbon Dioxide 29 mmol/L (22-29); Chloride 102 mmol/L (98-107); Globulin 2.8 g/dL (1.3-4.6); Glucose 97 mg/dL (65-115); Osmolality Calculated 290 mOsm/kg (285-295); Sodium 140 mmol/L (136-145); Total Bilirubin 0.6 mg/dL (0.15-1.2); Total Protein 7.3 g/dL (6.6-8.7)
[2024-12-16 10:43] LABS: Calcium 9.7 mg/dL (8.5-10.5)
[2024-12-16 10:46] LABS: 25 Hydroxy Vitamin D 28 ng/mL (30-100)
[2024-12-16 10:51] LABS: Parathyroid Hormone 75.5 pg/mL (15-65)
== END 2024-12-16 09:25 | disposition home or self-care (01) ==
LOC: LAB 09:27
PROVIDERS: Visit Provider Internal Medicine
DX: N25.81 Secondary hyperparathyroidism of renal origin (principal); E55.9 Vitamin D deficiency, unspecified; E11.22 Type 2 diabetes mellitus with diabetic chronic kidney disease; N18.30 Chronic kidney disease, stage 3 unspecified; E11.9 Type 2 diabetes mellitus without complications
CPT/HCPCS: 36415; 80053; 82306; 82310; 83970

== ENCOUNTER 2025-01-31 06:00 | Outpatient (RCR) | payer MEDICARE, SELFPAY | END 2025-03-01 23:59 | disposition home or self-care (01) | LOC: TPT 06:00 | PROVIDERS: Visit Provider Family Medicine | DX: R53.1 Weakness (principal) | CPT/HCPCS: 97110; 97112; 97116; 97162 ==

== ENCOUNTER 2025-03-02 06:00 | Outpatient (RCR) | payer MEDICARE, SELFPAY | END 2025-04-01 23:59 | disposition home or self-care (01) | LOC: TPT 06:00 | PROVIDERS: Visit Provider Family Medicine | DX: G81.91 Hemiplegia, unspecified affecting right dominant side (principal) | CPT/HCPCS: 97110; 97112; 97116 ==

== ENCOUNTER 2025-05-12 09:31 | Outpatient (CLI) | payer MEDICARE, SELFPAY ==
--- NOTE | 2025-05-12 09:41 | CT_ITS ---
WS: [id number] LDCT LUNG CANCER SCREENING TECHNIQUE: Ultra thin section noncontrast axial images with coronal and sagittal reconstructions. CLINICAL INFORMATION: NICOTINE DEPENDENCE, CIGARETTES. COMPARISON EXAMINATION: 01/04/2024. FINDINGS: Examination is unchanged compared to the previous examination. Old reactive adenopathy in the mediastinum. Calcified ectatic aortic arch with ectasia of the ascending and proximal descending thoracic aorta, maximum diameter 3.6 cm. Pleural thickening with calcification in the extreme lung apices. Chronic fibrotic parenchymal scarring/atelectasis in the right middle lobe and lingula. No significant bronchiectasis. No significant lung nodule or lung mass. Chronic compression deformity of T7. CT/CT lung screening [id number] IMPRESSION: Stable no change LUNG-RADS 2 benign Follow-up 12 months.
== END 2025-05-12 09:32 | disposition home or self-care (01) ==
LOC: RAD 09:32
PROVIDERS: PCP Family Medicine; Visit Provider Family Medicine
DX: Z12.2 Encounter for screening for malignant neoplasm of respiratory organs (principal); Z87.891 Personal history of nicotine dependence; R59.0 Localized enlarged lymph nodes; I77.810 Thoracic aortic ectasia; J98.4 Other disorders of lung; J92.9 Pleural plaque without asbestos; J98.11 Atelectasis; S22.060S Wedge compression fracture of T7-T8 vertebra, sequela; X58.XXXS Exposure to other specified factors, sequela
CPT/HCPCS: 71271